=== PATIENT | male | born 1940 | race Caucasian/White ===

== ENCOUNTER → 2017-11-08 10:29 | Outpatient (CLI) | payer MEDICARE, SELFPAY ==
[2017-11-08 12:15] LABS: Anion Gap 6 (5-15); BUN 18 mg/dL (7-18); BUN/Creat Ratio 12.6 RATIO (10-20); Calcium,Total 9.4 mg/dL (8.5-10.1); Chloride 105 mmol/L (98-107); Creatinine, Serum 1.43 mg/dL (0.70-1.30); EST Glomerular Filtration Rate 51 mL/min (>60); Est Glom Filt Rate - Afr Amer 61 mL/min (>60); Glucose 112 mg/dL (74-106); Potassium 4.1 mmol/L (3.5-5.1); Sodium Level 140 mmol/L (136-145)
== END ==
PROVIDERS: Family Provider Family Medicine; PCP Family Medicine; Visit Provider Family Medicine
DX: R94.4 Abnormal results of kidney function studies (principal)
CPT/HCPCS: 36415; 80048

== ENCOUNTER → 2017-11-11 08:40 | Outpatient (CLI) | payer MEDICARE, SELFPAY ==
--- NOTE | 2017-11-11 08:45 | US_ITS ---
STUDY: RENAL ULTRASOUND - COMPLETE REASON FOR EXAM: Male, 77 years old. Decreased GFR. TECHNIQUE: Ultrasound evaluation of the kidneys was performed with real-time and static cardenas-scale imaging. COMPARISON: None. FINDINGS: RIGHT KIDNEY: Normal location of the right kidney, which is normal in size. The right kidney measures 9.1 cm x 3.9 cm x 5.0 cm. There is a normal cortex of the right kidney. The renal cortex measures 1.3 cm. There is no right renal mass or cyst. There is a 2 mm x 6 mm x 2 mm nonobstructive calculus in the lower pole. There is no right hydronephrosis. DISTAL RIGHT URETER: There is non-visualization of the distal right ureter. There is no demonstrated right ureterovesical junction calculus. There is a visualized right ureteral jet. LEFT KIDNEY: Normal location of the left kidney, which is normal in size. The left kidney measures 10.1 cm x 3.6 cm x 4.3 cm. There is a normal cortex of the left kidney. The renal cortex measures 1.3 cm. There is no left renal mass or cyst. There are no left renal calculi. There is no left hydronephrosis. DISTAL LEFT URETER: There is non-visualization of the distal left ureter. There is no demonstrated left ureterovesical junction calculus. There is no demonstrated left ureteral jet. BLADDER: The distended urinary bladder has a volume of 148 ml. There is a normal wall thickness of the distended urinary bladder. There is no demonstrated mass within the urinary bladder. There are no demonstrated bladder calculi. US/Kidney and Bladder IMPRESSION: Nonobstructive right intrarenal calculus. Electronically Signed: Neal River MD at 13:07 EST Tel [phone], Service support ,
--- NOTE | 2017-11-11 09:08 | RDU_ITS ---
Reason For Study: HYPERTENSION Right Renal Artery Left Renal Artery Right renal artery ostium Left renal artery ostium 151.0/31.9 111.0/21.9 RSV/EDV. PSV/EDV. Right renal artery proximal Left renal artery proximal PSV/EDV 112.0/33.7 PSV/EDV. 140.0/28.3 . Right renal artery mid 126.0/33.7 Left renal artery mid 134.0/27.4 PSV/EDV. PSV/EDV . Right renal artery distal Left renal artery distal 127.0/28.3 115.0/27.4 PSV/EDV. PSV/EDV. Right RAR 1.6. Left RAR 1.9. Right Renal Parenchyma Left Renal Parenchyma Upper Pole Medula 22.9/7.9 PSV/EDV. Left upper pole medulla 30.8/8.3 Right upper pole medulla EDR .34 . PSV/EDV . Right upper pole medulla R.I. .65 . Left upper pole medulla EDR .27 . Upper Asher Cortx 18.9/6.1 PSV/EDV. Left upper pole medulla R.I. .73 . Right upper pole cortex EDR .32 . UP Cortex 24.1/7.6 PSV/EDV. Right upper pole cortex R.I. .68 . Left upper pole cortex EDR .32 . Right lower Pole medulla 29.3/8.6 Left upper pole cortex R.I. .68 . PSV/EDV . Left lower Pole medulla 23.5/4.9 Right lower pole medulla EDR .29 . PSV/EDV . Right lower pole medulla R.I. .71 . Left lower pole medulla EDR .21 . Lower Pole Cortex 22.9/7.0 PSV/EDV. Left lower pole medulla R.I. .79 . Right lower pole cortex EDR .31 . Lower Pole Cortx 21.1/6.7 PSV/EDV. Right lower pole cortex R.I. .69 . Left lower pole cortex EDR .32 . Right Renal Hilar Left lower pole cortex R.I. .68 . Right Hilar avg 37.3/9.8 PSV/EDV. Left Renal Hilar Right hilar acceleration time 59 LT Hilar avg 42.8/8.3 PSV/EDV . m/sec. Left hilar acceleration time 59 Right Renal Dimensions m/sec. Right kidney size 9.0 cm . Left Renal Dimensions Right cortical dimension 1.4 cm . Left kidney size 9.5 cm . Left cortical dimension 1.5 cm . Aorta Proximal abdominal aorta 1.8 x 1.8 cm . Distal abdominal aorta 1.6 x 1.6 cm . Proximal abdominal aorta peak systolic velocity is 77.5 cm/sec . Distal abdominal aorta peak systolic velocity is 83.9 cm/sec . Interpretation Summary Dimensions of the intra-abdominal aorta appear normal, without evidence of aneurysmal dilatation. Renal artery velocities are bilaterally normal. Acceleration times are normal bilaterally. Renal- aortic ratios are also bilaterally normal. There is no evidence of hemodynamically significant renal artery stenosis on either side. Cortical dimensions are bilaterally normal. Kidneys appear normal in size bilaterally. Ordering Physician: Que Parr Referring Physician: Que Parr Performed By: Dania Dacosta RVT
== END ==
PROVIDERS: Family Provider Family Medicine; PCP Family Medicine; Visit Provider Family Medicine
DX: N20.0 Calculus of kidney (principal); I10 Essential (primary) hypertension; R94.4 Abnormal results of kidney function studies
CPT/HCPCS: 76770; 93975

== ENCOUNTER 2018-02-14 05:44 | Day surgery (SDC) | payer MEDICARE, SELFPAY ==
--- NOTE | 2018-02-14 | MASS_PTH ---
PATIENT: ОЛЕГ DRAKE LOC: [facility] [place][id number] AGE/SX: 78/M ROOM: RE02/14/[address]: Dr. Chicho Tamez MD : 1940 BED: DIS: 02/14/2018 SPEC #: [id number] RECD: 02/14/18 08:02 STATUS: DIANA DILLON #: [id number] DIONICIO: 02/14/18 00:[address]: Chicho Tamez DEPT: SURGICAL PATHOLOGY RECD BY: Rosemarie Norwood ENTERED: 02/14/18 08:58 SP TYPE: Mass OTHR DR: Dr. Que Parr MD Tissues: A - Supraglottic space B - Supraglottic space Procedures: Frozen Section (charge) Surgery Specimen Level IV Frozen (no charge) HEADER OPERATION: Hypopharyngoscopy and laryngoscopy with biopsy of epiglottic mass PRE-OP DIAGNOSIS: Epiglottic mass TISSUE SUBMITTED: A. Supraglottic mass for frozen, B. Supraglottic mass for permanent FROZEN SECTION DIAGNOSIS A. Supraglottic mass, biopsy: Squamous cell carcinoma in situ. No definite invasive carcinoma seen. SJ:addie 02/14/18 MICROSCOPIC DIAGNOSIS A. Supraglottic mass, biopsy: Squamous cell carcinoma in situ. No definite invasive carcinoma is noted. B. 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 See comment. KRUNAL:addie 02/15/18 COMMENT A & B. 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 B. Results from immunohistochemistry ([id number]) for surrogate HPV marker (p16) will be reported separately. MICROSCOPIC DESCRIPTION Slides are reviewed. GROSS DESCRIPTION A - Received fresh for frozen section diagnosis labeled with the patient's name is a specimen designated supraglottic mass. The specimen consists of two pieces of bell soft tissue measuring in aggregate 1 x 0.3 x 0.2 cm. The entire specimen is submitted for frozen section diagnosis in one cassette. B - Received in fixative is one container labeled with the patient's name and designated supraglottic mass for permanent. The specimen consists of multiple pieces of bell-pink soft tissue that in aggregate measure 2 x 1 x 0.3 cm. The entire specimen is submitted in one cassette. / SJ:addie 02/14/18 TC:0 CPT: 92756 x2, 35962
--- NOTE | 2018-02-14 | IMM_PTH ---
PATIENT: ОЛЕГ DRAKE LOC: [facility] [place][id number] AGE/SX: 78/M ROOM: RE02/14/[address]: Dr. Chicho Tamez MD : 1940 BED: DIS: 02/14/2018 SPEC #: [id number] RECD: 02/15/18 12:32 STATUS: DIANA REBob #: [id number] DIONICIO: 02/14/18 00:[address]: Chicho Tamez DEPT: IMMUNOHISTOCHEMISTRY RECD BY: Rosemarie Norwood ENTERED: 02/15/18 12:37 SP TYPE: IMMUNO OTHR DR: Dr. Que Parr MD Tissues: B - Glottis, NOS Procedures: p16 (initial) PHYSICIAN & INSTITUTION [place] [address] SPECIMEN INFORMATION: Tissue Source: B ? Supraglottic mass Clinical Info: Epiglottic mass Specimen Number: [id number] CPT code: 90548 METHODOLOGY: Deparaffinized sections of prefer/formalin-fixed tissue or PAP/DQ stained slides are incubated with monoclonal/polyclonal antibodies/oligonucleotide probes. Localization is made via biotin free immunoperoxidase method. Appropriate controls are performed and reacted as expected. Results on target cell population are indicated in the following table: RESULTS: ANTIBODY / CLONE RESULT Block B P16 (E6H4) Positive, block staining These tests were developed and their performance characteristics determined by [facility]. They may not have been cleared or approved by the U.S. Food and Drug Administration. The FDA has determined that such clearance or approval is not necessary. INTERPRETATION: B. 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 SJ:addie 02/15/18
--- NOTE | 2018-02-14 05:51 | EKG12_ITS ---
Test Reason : PRE-OP Blood Pressure : / mmHG Vent. Rate : 055 BPM Atrial Rate : 055 BPM P-R Int : 194 ms QRS Dur : 074 ms QT Int : 440 ms P-R-T Axes : 037 010 034 degrees QTc Int : 420 ms Sinus bradycardia Otherwise normal ECG When compared with ECG of 02-APR-2006 18:03, Nonspecific T wave abnormality no longer evident in Anterior leads Confirmed by PHUC COREY, CAITLYN ([id number]), restaurant expeditor NAN MONET ([id number]) on 02/17/2018 3:00:56 PM Referred By: Chicho Tamez Confirmed By:CAITLYN FRIEND MD
[2018-02-14 06:09] VITALS: BP 126/63; PULSE 58; RESP 16; TEMP 36.7; O2SAT 97; BMI 27.6
[2018-02-14 06:23] LABS: Hematocrit 43.1 % (40-54); Mean Corp Hgb Conc 32.5 g/gl (32-36); Mean Corpuscular Hgb 29.7 pg (27.0-32.0); Mean Corpuscular Volume 91.3 fL (80-94); Mean Platelet Vol. 8.6 fl (6.2-12.0); Platelet Count 245 K/mm3 (150-450); RBC Distribution Width CV 13.4 % (11.6-14.6); RBC Distribution Width SD 44.3 fl (35.1-43.9); Red Blood Count 4.72 M/mm3 (4.6-6.2); White Blood Count 9.4 K/mm3 (4.4-11.0)
[2018-02-14 06:24] LABS: Scan Indicated on CBC? Y/N NO
[2018-02-14 06:38] LABS: Anion Gap 8 (5-15); BUN 16 mg/dL (7-18); BUN/Creat Ratio 11.6 RATIO (10-20); Calcium,Total 9.3 mg/dL (8.5-10.1); Chloride 104 mmol/L (98-107); Creatinine, Serum 1.38 mg/dL (0.70-1.30); EST Glomerular Filtration Rate 53 mL/min (>60); Est Glom Filt Rate - Afr Amer 64 mL/min (>60); Estimated Creatinine Clearance 44.08 ml/min; Glucose 115 mg/dL (74-106); Potassium 4.5 mmol/L (3.5-5.1); Sodium Level 139 mmol/L (136-145)
--- NOTE | 2018-02-14 08:27 | PCM.OP.BLANK ---
Operative Report Operative report Procedure microlaryngoscopy and biopsy of tumor mass in the supraglottic area and vallecula Preoperative diagnosis squamous cell carcinoma Postoperative diagnosis same Anaesthesia endotracheal general Procedure the patient was placed supine on the operating room table and after satisfactory endotracheal general anesthesia been obtained sterile drapes were applied and the patient draped in the usual sterile manner. A Dedo anterior commissure laryngoscope was introduced into the oral cavity. The epiglottis was identified. The preepiglottic space and vallecula appeared to be occupied by a large friable bloody tumor mass. The area epiglottic folds appear to be normal and the false cords and true cords were noted to be normal. Both piriform sinuses appear to be clean. Mutuel Cashier biopsies were obtained from different sites on the tumor mass. Bleeding was controlled by packing the mass with cottonoids soaked in topical epinephrine. After hemostasis had been obtained the hypopharynx was suctioned the patient extubated and returned to the recovery room in satisfactory condition. Chicho Tamez MD
[2018-02-14 08:40] VITALS: BP 109/53; BP 126/63; PULSE 59; RESP 16; TEMP 36.1; O2SAT 92
[2018-02-14 08:45] VITALS: BP 126/63; BP 94/83; PULSE 61; RESP 16; O2SAT 94
[2018-02-14 09:00] VITALS: BP 113/71; BP 126/63; PULSE 56; RESP 16; TEMP 36.4; O2SAT 92
[2018-02-14 09:29] VITALS: BP 126/63
== END 2018-02-14 09:44 | disposition home or self-care (01) ==
LOC: SDC 05:45 → AC 05:46
PROVIDERS: Family Provider Family Medicine; PCP Family Medicine; Visit Provider Otolaryngology Otolaryngology/Facial Plastic Surgery
PROC: 0CJS8ZZ Inspection of Larynx, Via Natural or Artificial Opening Endoscopic (ICD-10-PCS; CPT 31575; principal; 2018-02-14 07:15)
DX: D02.0 Carcinoma in situ of larynx (principal); I10 Essential (primary) hypertension; Z85.46 Personal history of malignant neoplasm of prostate; Z87.891 Personal history of nicotine dependence; Z79.899 Other long term (current) drug therapy
CPT/HCPCS: 00320; 31576; 36415; 80048; 85027; 88305; 88331; 88342; 93005; J7120; J2405

== ENCOUNTER → 2018-02-28 15:16 | Outpatient (CLI) | payer MEDICARE, SELFPAY ==
[2018-02-23 10:36] VITALS: BMI 27.5
--- NOTE | 2018-02-28 15:20 | CT_ITS ---
STUDY: CT SOFT TISSUE NECK WITH CONTRAST REASON FOR EXAM: Male, 78 years old. Malignant neoplasm. RADIATION DOSAGE (If Supplied By Facility): CTDIvol = ( 19.65 ) mGy, DLP = ( 598.63 ) mGycm TECHNIQUE: The patient was scanned in a multi-detector CT scanner. High resolution transaxial imaging was performed following intravenous administration of 75 ml of Isovue 370 contrast material. Sagittal and coronal images were reconstructed. Individualized dose optimization techniques were used for this CT. COMPARISON: None. FINDINGS: Thoracic body wall soft tissues: No acute process. Upper thoracic osseous structures: No acute process. Upper lungs: Hyperlucency consistent with underlying COPD/emphysema. No acute pulmonary process. Superior mediastinum: No mass or lymphadenopathy. Supraclavicular soft tissues: Normal thyroid. A few shotty supraclavicular lymph nodes are present, none pathologically enlarged. Cervical soft tissues: Normal submandibular glands. A few shotty lymph nodes are present in the cervical chains bilaterally, not pathologically enlarged. No mass or lymphadenopathy. Pharyngeal: Normal nasopharynx and oropharynx. Entering the hypopharynx and laryngeal region, there is irregular abnormal thickening at the deep base of the tongue, extending into the vallecula and involving the epiglottis, dominant toward the right side, and consistent with a neoplastic process. This spans transversely up to 3.5 cm long the base of the tongue within the vallecula. On the right process measures up to 2.3 cm anterior-posterior, 2.8 cm craniocaudal, and 1.8 cm transverse. On the left 1.8 cm anterior-posterior, 0.7 cm transverse, and 1.7 cm craniocaudal. Inferiorly, at the level of the true and false cords, no neoplastic process. There is no apparent invasion of the immediately adjacent parapharyngeal fat planes or retropharyngeal space. Vasculature: Minimal carotid atherosclerosis without stenosis, slightly greater on the left. Normal bilateral vertebral arteries left dominant. CT/Soft Tissue Neck WITH Contrast IMPRESSION: 1. 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 2. No lymphadenopathy. Electronically Signed: Azeem Hennessy, at 9:08 EDT Tel , Service support ,
== END ==
PROVIDERS: Family Provider Family Medicine; PCP Family Medicine; Visit Provider Student in an Organized Health Care Education/Training Program
DX: C76.0 Malignant neoplasm of head, face and neck (principal)
CPT/HCPCS: 70491; Q9967

== ENCOUNTER → 2018-03-13 07:18 | Outpatient (CLI) | payer MEDICARE, SELFPAY ==
[2018-02-23 10:36] VITALS: BMI 27.5
--- NOTE | 2018-03-13 07:18 | DT_ITS ---
This patient was seen during an EMR downtime March 06, 2018 - March 13, 2018. This patient may have a combination of paper and electronic documentation or all paper documentation. All documentation is viewable within the e-chart portion of [employer] for each patient visit.
--- NOTE | 2018-03-13 12:00 | PET_ITS ---
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 COMPARISON EXAMINATION: CT of the neck report dated 02/28/18. INDEX LESION SIZE SUV INTERPRETATION Pharyngeal mucosal space-hypopharynx 39.1 mm x 30.2 mm (frame 270) 14.1 Fulfills quantitative criteria for viable neoplasm First lumbar vertebra 3.5 May be further investigated with magnetic resonance imaging TECHNIQUE: Following the intravenous administration of 12.63 mCi of F-18 deoxyglucose via the right antecubital fossa, multiplanar image acquisitions of the neck, chest, abdomen and pelvis to level of mid thigh, obtained at one hour post radiopharmaceutical administration contemporaneously interpreted with the current CT of the neck, chest, abdomen and pelvis to level of mid thigh, dated 03/13/[address] of the neck report dated 02/28/18 reveal: SERUM GLUCOSE LEVEL: 112 mg/dl. HEIGHT: 69 inches. WEIGHT: 185 lbs. FINDINGS: 1. Increased glucose metabolism is identified in the posterior aspect of the oropharynx, pharyngeal mucosal space extending caudal to the hypopharynx to include the distribution of the vallecula and epiglottis. The calculated maximum standard uptake value is 14.1. The maximal axial diameter of the metabolic, morphologic abnormality on review of CT of the neck dated 03/13/18 is 39.1 mm (transverse) x 30.2 mm (AP). 2. Focal increased glucose concentration is demonstrated in the region of the first lumbar vertebra contiguous to the vertebral body, anterior element generating a calculated maximum standard uptake value of 3.5. 3. Normal physiologic distribution of the radiopharmaceutical is apparent in the hepatic (3.4) and splenic parenchyma, both renal units, bladder and visualized intestinal tract. There is symmetric and preserved glucose metabolism noted in the visualized portion of the frontal, occipital, temporal and parietal lobes of the cerebral cortex, as well as cerebral hemispheres and basal ganglia. Diffuse intestinal tract activity is noted throughout all four quadrants of the abdominal-pelvic retroperitoneum, mesentery consistent with normal physiologic distribution of the radiopharmaceutical. Prominent glucose metabolism is defined in the descending thoracic, as well as abdominal aorta. Pertinent CT findings are as follows. CHEST: Emphysematous change is noted in the bilateral lung zones. Prominent bulla formation is defined in the right-left lower lung chapa. Nodular densities demonstrated in the right-left lower lobes demonstrate no evidence of quantitatively significant increased glucose metabolism. Prominent calcified pleural plaque formation is noted in the bilateral hemithorax without evidence of quantitatively significant increased glucose metabolism. Atherosclerotic calcification is defined in the thoracic aorta without evidence of dilatation, aneurysm formation. Coronary arterial calcification is observed. Bilateral subcentimeter axillary and scattered mediastinal soft tissue densities are ametabolic. ABDOMEN AND PELVIS: Atherosclerotic calcification is defined in the abdominal aorta without evidence of dilatation, aneurysm formation. Abdominal-pelvic arterial calcification is observed. Colonic diverticulosis is defined. Right-left inguinal soft tissue densities are non-glucose avid. Calcification is demonstrated in the right kidney. SKELETAL: Degenerative changes defined in the cervical, thoracic and lumbar spine demonstrate no evidence for glucose hypermetabolism. PET/PET/CT Tumor Base -Thigh Init IMPRESSION: 1. ABNORMAL EXAMINATION INDICATIVE OF MALIGNANT VIABLE NEOPLASM. 2. Increased glucose concentration visualized in the pharyngeal mucosal space extending caudal to the hypopharynx fulfills quantitative criteria for viable neoplasm. 3. Enhanced glucose concentration observed in the first lumbar vertebra may be further investigated with magnetic resonance imaging in the setting of known head and neck malignancy. 4. Prominent glucose concentration observed in the descending thoracic, as well as abdominal aorta is commensurate with activated leukocytes associated with atherosclerotic plaque formation. (Michael et al, Clinical Nuclear Medicine 29:93, 2004). Electronic Signature Azeem Sultana D.O. Electronically Signed: Azeem Sultana DO at 22:33 EDT Tel , Service support ,
== END ==
PROVIDERS: Family Provider Family Medicine; PCP Family Medicine; Visit Provider Student in an Organized Health Care Education/Training Program
DX: C10.0 Malignant neoplasm of vallecula (principal)
CPT/HCPCS: 78815; A9552; A4216

== ENCOUNTER → 2018-03-18 07:27 | Outpatient (CLI) | payer MEDICARE, SELFPAY ==
[2018-02-23 10:36] VITALS: BMI 27.5
[2018-03-16 10:37] VITALS: BMI 27.5
--- NOTE | 2018-03-18 07:30 | MRI_ITS ---
STUDY: MRI LUMBAR SPINE WITH AND WITHOUT CONTRAST REASON FOR EXAM: Male, 78 years old. Back pain TECHNIQUE: Standardized fat and water weighted pulse sequences were obtained in the sagittal and axial planes. 9ml ml of Gadavist contrast material was administered for the contrast portion of the examination. COMPARISON: None FINDINGS: There is normal alignment and curvature of the lumbosacral spine with no acute fractures and no abnormal marrow infiltrative processes. Almost all the disc spaces are narrowed with marginal osteophytes from their respective vertebral body endplates. The conus medullaris terminates at T12-L1. T12-L1: Normal endplates. Normal disc height, hydration and morphology. Normal bilateral facet joints. Normal central canal and bilateral lateral recesses. Normal bilateral intervertebral neural foramina. L1-2: Disc space narrowing with spurs from the vertebral body endplates but no focal disc protrusion or extrusion. The facet joints are normal. L2-3: Disc space narrowing with spurs from the vertebral body endplates. No focal disc protrusion or extrusion. The facet joints are normal. Mild hypertrophy of the left ligamentum flavum. L3-4: Disc space narrowing with spurs from the vertebral body endplates. No focal disc protrusion or extrusion. Degenerative changes of the facet joints with hypertrophy of the left ligamentum flavum. L4-5: Disc space narrowing with spurs from the vertebral body endplates. Degenerative changes of the facet joints. Severe central canal stenosis and narrowing of the intervertebral foramina bilaterally. L5-S1: Disc space narrowing with spurs from the vertebral body endplates. No focal disc protrusion or extrusion. Mild degenerative changes of the facet joints Normal visualized sacral ala. Aorta and visualized portions of the kidneys are normal MRI/Spine Lumbar W/WO Contrast IMPRESSION: Multilevel intervertebral osteochondrosis. No focal disc protrusion or extrusion. Central canal stenosis at L4-5. Multilevel facet arthrosis Electronically Signed: Freedom Lerma, at 8:01 EDT Tel , Service support ,
== END ==
PROVIDERS: Family Provider Family Medicine; PCP Family Medicine; Visit Provider Student in an Organized Health Care Education/Training Program
DX: C76.0 Malignant neoplasm of head, face and neck (principal); M42.1 Adult osteochondrosis of spine; M48.061 Spinal stenosis, lumbar region without neurogenic claudication; M47.896 Other spondylosis, lumbar region
CPT/HCPCS: 72158; A9585

== ENCOUNTER → 2018-03-20 12:28 | Outpatient (CLI) | payer MEDICARE, SELFPAY ==
[2018-02-23 10:36] VITALS: BMI 27.5
[2018-03-16 10:37] VITALS: BMI 27.5
--- NOTE | 2018-03-20 13:00 | SP.MBSS_ITS ---
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 Houston Esparza D.O. 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 Patient reporting consistent globus sensation, prior mild odynophagia (reports no recent occurrences), persistent loss in appetite resulting in 10-15lbs weight loss over the last 3-6 months (currently maintaining), persistent muffled horse vocal quality. Patient denies dysgeusia / ageusia, numbness / weakness, taste change, xerostomia, sialorrhea, or otalgia. Patient able to ambulate without difficulty (no cane / walker), independent for all activities of daily living, though reports he is no longer very active. Patient and Patients both report occasional coughing / throat clearing with liquids and solids. Patient and Patients report percutaneous endoscopic gastrostomy (PEG) tube placement scheduled for 03/21/2018; further chemoradiation scheduled to initiate on 03/22/2018 (per report, 4 rounds of chemotherapy, 5 weeks of radiation 5 days per week; 35 total sessions). ADDITIONAL OBJECTIVE ASSESSMENT RESULTS: 03/01/2018 CT / soft tissue neck with contrast revealed malignancy at the base of the tongue extending into the valleculae and involving the epiglottis, dominant toward the right side. 10/24/2017 CT chest with contrast performed due to hemoptysis; showed evidence for emphysematous changes and scarring predominantly in the lower lobes, right pleural calcifications which could be due to previous empyema, no evidence of adenopathy, pleural effusions, or pulmonary masses. 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 02/20/2018: Patient was seen in the ENT office to discuss pathology and was found to be healing well, he was referred to radiation oncology. MEDICAL HISTORY: Malignant neoplasm of the head / face / neck, skin cancer, prostate cancer / malignancy undetectable PSA per patient status post prostatectomy, prior left knee surgery due to meniscus tear, hiatal hernia status post surgical repair, hypertension, gout STUDY FINDINGS: Patient participated in a Modified Barium Swallow (MBS) study on 03/06/2018. Dr. River was the radiologist present for this evaluation. This study was recorded in the lateral view and images were sent to PACs for storage. The following consistencies were presented to this patient for analysis of oropharyngeal swallow function: thin liquids, pudding, and a regular textured, Jenni Doone cookie. Results of the MBS are as follows: PENETRATION / ASPIRATION SCALE (FINK): 1 = does not enter airway 2 = enters airway/above vocal folds/ejected 3 = enters airway/above vocal folds/not ejected 4 = enters airway/contacts vocal folds/ejected 5 = enters airway/contacts vocal folds/not ejected 6 = enters airway/below vocal folds/ejected 7 = enters airway/below vocal folds/not ejected despite effort 8 = enters airway/below vocal folds/no effort PENETRATION / ASPIRATION SCALE (SCORE): Thin liquid - 5 mL tsp.: 1 Thin liquids via cup (single sip): 3 Thin liquids via cup (single sip): 5 Thin liquids via cup (single sip): 3 Thin liquids via straw (single sip): 3 Thin liquids via straw (sequential swallows): 5 Thin liquids via cup (chin tuck): 1 Thin liquids via cup (chin tuck): 2 Thin liquids via cup (chin tuck): 2 [place] thickened liquids via cup (single sip): 2 [place] thickened liquids via cup (single sip): 2 Pudding via spoon: 1 Regular textured cookie: 1 Thin liquids via cup (chin tuck): 2 [place] thickened liquids via cup (chin tuck): 1 [place] thickened liquids via cup (chin tuck): 1 IMPRESSION: DIAGNOSIS: mild to moderate oropharyngeal dysphagia (R13.12) ORAL PHASE CHARACTERIZED BY: LABIAL SEAL: no labial escape TONGUE CONTROL DURING BOLUS MANIPULATION: posterior escape of greater than half of bolus BOLUS PREPARATION / MASTICATION: slow prolonged chewing/mashing with complete recollection BOLUS TRANSPORT / LINGUAL MOTION: brisk tongue motion ORAL RESIDUE: trace residue lining oral structures PHARYNGEAL PHASE CHARACTERIZED BY: INITIATION OF PHARYNGEAL SWALLOW: bolus head in pyriforms at first hyoid excursion SOFT PALATE ELEVATION: no bolus between soft palate and pharyngeal wall LARYNGEAL ELEVATION: minimal superior movement of thyroid cartilage/minimal approximation of arytenoids cartilage to epiglottic petiole ANTERIOR HYOID EXCURSION: partial anterior movement EPIGLOTTIC MOVEMENT: partial epiglottic inversion LARYNGEAL VESTIBULE CLOSURE AT HEIGHT OF SWALLOW: incomplete laryngeal vestibule closure with narrow column of air/contrast in laryngeal vestibule PHARYNGEAL STRIPPING WAVE: pharyngeal stripping wave present / complete PHARYNGOESOPHAGEAL SEGMENT OPENING: complete distension and complete duration with no obstruction of flow TONGUE BASE RETRACTION: trace column of contrast between tongue base and posterior pharyngeal wall PHARYNGEAL RESIDUE: trace residue within or on pharyngeal structures with scattered mild collections of barium within / around the pharyngeal mass. ESOPHAGEAL PHASE CHARACTERIZED BY: ESOPHAGEAL BOLUS CLEARANCE IN THE UPRIGHT POSITION: could not view EFFECTS OF TREATMENT STRATEGIES ATTEMPTED: Chin tuck posture = moderately effective Cough and reswallow = moderately effective Effort swallow = moderately effective DIET TEXTURE RECOMMENDATIONS: Will recommend a regular-soft textured, nectar thickened liquid diet. COMPENSATORY STRATEGIES RECOMMENDED: Chin tuck with effortful swallow, reduce bolus volume, seated upright at 90 degrees during PO intake, remain upright for 30-60 minutes post meal (GERD precaution), medications with applesauce. 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 Oral phase primarily marked by suboptimal lingual / bolus control resulting in premature posterior bolus loss and pre-prandial penetration. Pharyngeal phase marked by impaired pharyngeal swallow onset timing resulting in suboptimal bolus location upon swallow onset contributing to prandial penetration; reduced closure of the airway during deglutition attributed to significantly impaired laryngeal elevation and anterior hyoid excursion resulting in insufficient epiglottic inversion and poor laryngeal vestibule closure / pressure contributing to prandial penetration with insufficient / inconsistent laryngeal vestibule pressure generated to expel penetrated material; adequate pharyngeal motility with mild retention on / around the location of the pharyngeal mass. All deficits improved with execution of the chin tuck position and effortful swallow maneuver in combination with diet texture and bolus volume adjustments. Prominent shading both above and below the epiglottis and within the valleculae at the location of the known pharyngeal mass. Mild bony projections / osteophytes protruding from the anterior spine, little to no impact on swallow function. No aspiration appreciated throughout trials, unable to definitively rule out silent aspiration. RECOMMENDATIONS: Patient currently at higher risk for intermittent aspiration during intake of baseline diet textures (thin liquids) due to persistent penetration without complete ejection. Patient further at higher anticipated risk of dysphagia / exacerbation of current dysphagia following anticipated radiation intervention, with higher likelihood for suboptimal laryngeal vestibule closure, larger quantities and frequencies of laryngeal penetration, and higher likelihood for silent aspiration. Recommend a repeat modified barium swallow study if silent aspiration / persistent aspiration is suspected. Would consider implementation of the Blank Free Water Protocol (FFWP) following Patient and family education / training if medically appropriate. Patient unlikely to consume appropriate amounts of intake during chemoradiation intervention, with planned supplementation via PEG. Both the Patient and Patients expressing multiple questions in regards to PEG placement, encouraged both to discuss with the Patients physician; may benefit from dietary consultation. Discussed the following at length: current structural alterations and impact on physiology of deglutition; current aspiration risk in addition to projected (high) aspiration risk with radiation intervention. Discussed overt signs and symptoms of aspiration, encouraged to contact any of the Patients care team if changes in deglutition occur. Encouraged the Patient and Patients to monitor temperature spikes, lethargy post meal in particular if overt signs and symptoms of aspiration are identified. Patient requires intensive skilled speech -language intervention targeting continued diet texture management; training and implementation of recommended compensatory strategies; training and implementation of recommended oropharyngeal strengthening exercises to facilitate maintained range of motion, timing / coordination, and reduce risk of oropharyngeal and pharyngoesophageal structuring post radiation intervention ; Patient and caregiver training targeting dysphagia secondary to pharyngeal cancer status post chemoradiation intervention, aspiration risk and medical complications associated with aspiration and post chemoradiation intervention; training, implementation, and Patient education regarding implementation of the FFWP if placement is medically appropriate; and Patient / caregiver training targeting meal preparation / thickened liquid preparation. ADDITIONAL COMMENTS/RECOMMENDATIONS: Results and recommendations were discussed with the Patient immediately following MBS completion, with the Patient verbalizing understanding and agreement with all recommendations and education provided. IMAGE COUNT: [id number] G-CODES: SWALLOWING [id number] Current Status: CJ SWALLOWING G8997 Goal Status: CI SWALLOWING G8998 Discharge Status: CJ
--- NOTE | 2018-03-20 13:00 | RAD_ITS ---
STUDY: SWALLOWING STUDY REASON FOR EXAM: Male, 78 years old. Malignant neoplasm of the larynx. TECHNIQUE: The examination was performed with Speech Pathology in attendance. Under fluoroscopic observation, the patient ingested thin barium, thick barium, barium pudding, and barium coated cracker. FLUOROSCOPY TIME: 2:42 minutes/seconds. 2520 spot images were made. RADIOLOGIST INVOLVEMENT: Radiologist was present and providing direct supervision. COMPARISON: None. FINDINGS: The following was observed during swallowing of the various mixtures of barium: Thin Barium: Penetration with ingestion of thin liquids. Thick Barium: Penetration with ingestion of the nectar thickened liquids. This improves with the chin tuck maneuver. Barium Pudding: There was no evidence of aspiration or laryngeal penetration. Barium Coated Cracker: There was no evidence of aspiration or laryngeal penetration. RAD/Swallowing Function w/Video IMPRESSION: Penetration with ingestion of thin liquids. Penetration with ingestion of nectar thickened liquids which improves with the chin tuck maneuver. The swallow study findings were discussed with the patient by the speech pathologist at the conclusion of the examination. Please see speech pathology report for more information and recommendations. Electronically Signed: Neal River MD at 13:59 EDT Tel [phone], Service support ,
== END ==
PROVIDERS: Family Provider Family Medicine; PCP Family Medicine; Visit Provider Student in an Organized Health Care Education/Training Program
DX: C76.0 Malignant neoplasm of head, face and neck (principal)
CPT/HCPCS: 74230; 92611; G8996; G8997; G8998

== ENCOUNTER 2018-03-21 10:43 | Day surgery (SDC) | payer MEDICARE, SELFPAY ==
[2018-02-23 10:36] VITALS: BMI 27.5
[2018-03-16 10:37] VITALS: BMI 27.5
[2018-03-21] VITALS (8 sets, daily range): BP systolic 110–153; BP diastolic 60–100; PULSE 58–68; RESP 16–18; TEMP 36.3–37.2; O2SAT 92–97; BMI 28.0
--- NOTE | 2018-03-21 16:34 | PCM.OPRPT ---
Report of Operation Date of Procedure: 03/21/18 Pre-Operative Diagnosis: Throat cancer, dysphasia Post-Operative Diagnosis: Same, GERD questionable Edwards's Surgery/Procedure Performed:: EGD with PEG placement Type of Anesthesia:: MAC Anesthesiologist: Nolan Mccord Special Medications: Ancef 2 g IV ?1 Specimen's removed: None Estimated Blood Loss (mL): Minimal Description of Procedure: The patient was taken to the operating room. MAC anesthesia was induced. Timeout was completed verifying correct patient, procedure, site, positioning on special from prior to beginning procedure. After adequate sedation, mouthpiece was placed in the patient's mouth and endoscope was passed down into the stomach. There was noted to be some change at the GE junction along with a small hiatal hernia and one column of possible Edwards's. The stomach was insufflated with air and scope position the midportion and directed towards the anterior abdominal wall. With the room darkened and intensity turned up on the endoscope, a good light reflex noted on the skin of the abdomen wall in the left upper quadrant. Finger pressure was applied at the light reflection with adequate indentation on the stomach wall on endoscopy. A polypectomy snare was passed into the stomach, fully opened, and positioned so that the loop encircled the point of demonstrated finger indentation. The overlying skin was anesthetized with lidocaine and a 1 cm incision was made at the chosen site. The introducer needle with overlying catheter was passed through this incision into the stomach under visualization with the gastroscope. The needle and catheter gently grasped by the endoscopic snare. The guidewire was passed and snared. The endoscope, snare and guidewire were then withdrawn and pulled back out of the mouth. The gastrotomy tube was attached to the loop the guidewire and the whole thing pulled back the stomach to the 2.5 cm keanu of the gastrotomy tube was noted at skin level. The gastroscope was reintroduced and adequate placement of the gastrotomy tube was identified and picture was taken. The gastrotomy tube in was cut to length and the cramping appendage was placed. The patient tolerated procedure well and was taken back to the PACU in good condition. Will start patient on omeprazole for the GERD and will plan for an EGD in the future for surveillance of possible Edwards's once his chemo and radiation is complete. - Complications None
== END 2018-03-21 17:45 | disposition home or self-care (01) ==
LOC: EN 10:44 → AC 10:46
PROVIDERS: Family Provider Family Medicine; PCP Family Medicine; Visit Provider Surgery
PROC: 0DJ08ZZ Inspection of Upper Intestinal Tract, Via Natural or Artificial Opening Endoscopic (ICD-10-PCS; CPT 43235; principal; 2018-03-21 11:55)
DX: C10.0 Malignant neoplasm of vallecula (principal); K21.9 Gastro-esophageal reflux disease without esophagitis; K44.9 Diaphragmatic hernia without obstruction or gangrene; R13.12 Dysphagia, oropharyngeal phase; I10 Essential (primary) hypertension; Z85.46 Personal history of malignant neoplasm of prostate; Z90.79 Acquired absence of other genital organ(s); Z85.828 Personal history of other malignant neoplasm of skin; Z87.891 Personal history of nicotine dependence; Z79.82 Long term (current) use of aspirin; Z79.899 Other long term (current) drug therapy
CPT/HCPCS: 43246; J7120

== ENCOUNTER 2018-03-24 06:36 | Day surgery (SDC) | payer MEDICARE, SELFPAY ==
[2018-03-16 10:37] VITALS: BMI 27.5
[2018-03-24 07:27] VITALS: BP 129/79; PULSE 61; RESP 16; TEMP 37.2; O2SAT 98; BMI 28.2
[2018-03-24] MEDS: Cefazolin 2 GM in 0.9% Normal Saline 100 ML IV (08:22)
[2018-03-24] MEDS: Bupivacaine Mpf 0.5% 30 ML VIAL (08:50)
--- NOTE | 2018-03-24 09:29 | RAD_ITS ---
STUDY: X-RAY CHEST REASON FOR EXAM: Male, 78 years old. Port placement. TECHNIQUE: Single AP portable view of the chest. COMPARISON: None. FINDINGS: A right-sided portacatheter as been placed. The tip is in the midportion of the superior vena cava. There is no evidence of pneumothorax. Hyperinflation. Decreased bronchovascular markings in the upper lobes suggestive of emphysematous changes. Calcified pleural plaques in the lateral aspect of the right upper lobe. There is an 8.7 cm x 6.9 cm bulla in the left lower lobe. Blunting of the left costo phrenic angle with left basilar scarring or infiltration. Normal size heart. Normal mediastinum and stefani. Normal visualized pulmonary arteries. There is atherosclerotic calcification of the aortic arch with tortuosity. There are diffuse degenerative changes of the visualized thoracic spine. Normal visualized ribs, clavicles, and shoulders. There is no demonstrated abnormality of the visualized soft tissue structures of the upper abdomen. RAD/CXR for Line Placement IMPRESSION: Hyperinflation and emphysematous changes. The tip of the right portacatheter is in the midportion of the superior vena cava. Pleural parenchymal changes at the left lung base. Pleural plaque calcification in the lateral aspect of the right upper lobe. Electronically Signed: Neal River MD at 10:27 EDT Tel [phone], Service support ,
[2018-03-24 09:31] VITALS: BP 118/85; BP 129/79; PULSE 65; RESP 16; TEMP 36.2; O2SAT 95
--- NOTE | 2018-03-24 09:33 | OP.PCM_ITS ---
Report of Operation Date of Procedure: 03/24/18 Pre-Operative Diagnosis: Z 45.2, throat cancer Post-Operative Diagnosis: Same Surgery/Procedure Performed:: 1. Insertion of right IJ Port-A-Cath. 2. Use ultrasound. 3. Use of fluoroscopy Type of Anesthesia:: MAC Anesthesiologist: Carrie Sterling Special Medications: Ancef 2 g IV ?1 Specimen's removed: None Estimated Blood Loss (mL): <5 cc Fluids Replaced: See anesthesia's record Description of Procedure: After informed consent was given, the patient was brought to the operating room and placed in the supine position. Appropriate time out protocol was followed. He was then given IV conscious sedation for anesthesia. The patient 's right upper chest and neck were then prepped with a surgical skin preparation and sterile surgical drapes were placed. After proper landmarks were ascertained, the skin at the upper right chest area was then infiltrated with 1:1 mixture of 1% lidocaine with epinephrine and 0.5% maricaine total of 10 cc. A needle trocar was then inserted into the right internal jugular vein with ultrasound guidance-multiple vessels were viewed with u/s and the right IJ was chosen-- and there was good aspiration of venous blood. A wire was then threaded into the needle trocar and this was visualized under fluoroscopy to ensure that the wire was in the superior vena cava. Once this was done, then the needle trocar was removed. A small skin yaneth was made with an 11 blade knife at the wire entrance site. The dilator with the introducer sheath attached was then placed over the wire into the right internal jugular vein via the Seldinger technique and this was visualized under fluoroscopy. The dilator and sheath were in proper position as visualized by fluoroscopy. A subcutaneous pocket was then created caudad to the catheter insertion site. A transverse skin incision was made after the skin and subcutaneous tissues were infiltrated with local anesthetic. Blunt dissection was then used to create a space large enough for placement of the subcutaneous port. The catheter was then tunneled into the subcutaneous pocket. The wire and dilator were then removed. The catheter was then threaded into the introducer sheath and was positioned with its tip at the junction of the superior vena cava and the right atrium as visualized under fluoroscopy. The excess catheter was transected. The catheter was then attached to the subcutaneous port using manufacturers guidelines. The catheter was flushed with a heparin saline mixture prior to placement. Hemostasis was carefully controlled with electrocautery. The port was sutured to the subcutaneous fascia using 3-0 PDS suture at two sites. The port was then placed in the subcutaneous pocket and the sutures were ligated. The incision were reapproximated with interrupted subdermal 3-0 vicryl sutures. The skin was reapproximated with 3-0 nylon suture in a interrupted fashion. Steristrips were used for reinforcement of the skin closure at IJ insertion site and a sterile opsite dressings were applied. The patient tolerated the procedure well. Implants Used: [employer] PowerPort isp M.R.I. 6Fr Lot [id number] Grafts/Implants Used: [employer] PowerPort isp M.R.I. 6Fr Lot [id number] - Complications none
[2018-03-24 09:35] VITALS: BP 129/79; BP 132/75; PULSE 65; RESP 16; O2SAT 93
--- NOTE | 2018-03-24 09:37 | PCM.DC.POR ---
Discharge Diet: No Restrictions Discharge Activity: May not drive while taking narcotic pain medications., - - no lifting >15 lb w right arm x 1 week May shower in (days): 5 - Keep port site clean and dry x 5 days then ok to shower Lifting Restrictions: no lifting >15 lbs w right arm Call your doctor if your incision/area has: Continuous Slow Oozing, Sudden Increased Bleeding, Increased Pain/ Swelling, Increased Redness, Foul Smelling Discharge, Swelling at the incision site Call your doctor if you observe: Fever of 101 or Higher Remove Dressing in (days):: 5 - ok to remove for chemo but recover Cleanse incision/area with: Keep Dressing Clean & Dry - for 5 days Allergies/Adverse Reactions: Allergies No Known Allergies Allergy (Verified 03/24/18 07:26) Medications to take at Discharge Allopurinol 100 mg PO QODAY 02/08/18 Aspirin E.C. [Ecotrin] 81 mg PO DAILY@0800 02/08/18 Calcium Carbonate [Calcium] 600 mg PO DAILY 02/08/18 Garlic 500 mg PO DAILY 02/08/18 Lisinopril [Zestril] 5 mg PO DAILY 02/08/18 Methylcellulose [Fiber Therapy] 625 mg PO DAILY 02/08/18 Multivitamin [Multiple Vitamins] 1 each PO DAILY 02/08/18 [place]-3/Dha/Epa/Fish Oil [[place] 3 500 Softgel] 1 each PO DAILY 02/08/18 Lidocaine/Prilocaine [Lidocaine-Prilocaine Cream] 30 gm TP DAILY PRN PRN #1 cream..g. 03/16/18 Ondansetron HCl [Zofran] 4 mg PO Q8H PRN PRN #30 tab 03/16/18 Omeprazole 40 mg PO DAILY #30 capsule. 03/21/18 Magic Mouth Wash 15 ml PO Q6H PRN PRN #240 ml 03/22/18 Magic Mouth Wash 15 ml PO Q6H PRN PRN #240 ml 03/22/18 Hydrocodone Bitart/Apap 5-325 [[place] 5MG-325MG] 1 tab PO Q6H PRN PRN 2 Days #5 tab 03/24/18 The following prescriptions were given: Hydrocodone Bitart/Apap 5-325 [[place] 5MG-325MG] 1 tab PO Q6H PRN PRN 2 Days #5 tab PRN Reason: Pain Primary Care Physician: Que Parr MD [Primary Care Provider] - Please Follow Up With: Ida Anderson MD - call [phone] with any concerns after 5pm/weekend When: call office today or tuesday for f/u 10 days from surgery for suture removal
[2018-03-24 09:40] VITALS: BP 129/79; BP 139/76; PULSE 60; RESP 16; O2SAT 94
--- NOTE | 2018-03-24 09:41 | DCINST_ITS ---
Discharge Diet: No Restrictions Discharge Activity: May not drive while taking narcotic pain medications., - - no lifting >15 lb w right arm x 1 week May shower in (days): 5 - Keep port site clean and dry x 5 days then ok to shower Lifting Restrictions: no lifting >15 lbs w right arm Call your doctor if your incision/area has: Continuous Slow Oozing, Sudden Increased Bleeding, Increased Pain/ Swelling, Increased Redness, Foul Smelling Discharge, Swelling at the incision site Call your doctor if you observe: Fever of 101 or Higher Remove Dressing in (days):: 5 - ok to remove for chemo but recover Cleanse incision/area with: Keep Dressing Clean & Dry - for 5 days Allergies/Adverse Reactions: Allergies No Known Allergies Allergy (Verified 03/24/18 07:26) Medications to take at Discharge Allopurinol 100 mg PO QODAY 02/08/18 Aspirin E.C. [Ecotrin] 81 mg PO DAILY@0800 02/08/18 Calcium Carbonate [Calcium] 600 mg PO DAILY 02/08/18 Garlic 500 mg PO DAILY 02/08/18 Lisinopril [Zestril] 5 mg PO DAILY 02/08/18 Methylcellulose [Fiber Therapy] 625 mg PO DAILY 02/08/18 Multivitamin [Multiple Vitamins] 1 each PO DAILY 02/08/18 [place]-3/Dha/Epa/Fish Oil [[place] 3 500 Softgel] 1 each PO DAILY 02/08/18 Lidocaine/Prilocaine [Lidocaine-Prilocaine Cream] 30 gm TP DAILY PRN PRN #1 cream..g. 03/16/18 Ondansetron HCl [Zofran] 4 mg PO Q8H PRN PRN #30 tab 03/16/18 Omeprazole 40 mg PO DAILY #30 capsule. 03/21/18 Magic Mouth Wash 15 ml PO Q6H PRN PRN #240 ml 03/22/18 Magic Mouth Wash 15 ml PO Q6H PRN PRN #240 ml 03/22/18 Hydrocodone Bitart/Apap 5-325 [[place] 5MG-325MG] 1 tab PO Q6H PRN PRN 2 Days #5 tab 03/24/18 The following prescriptions were given: Hydrocodone Bitart/Apap 5-325 [[place] 5MG-325MG] 1 tab PO Q6H PRN PRN 2 Days #5 tab PRN Reason: Pain Primary Care Physician: Que Parr MD [Primary Care Provider] - Please Follow Up With: Ida Anderson MD - call [phone] with any concerns after 5pm/weekend When: call office today or tuesday for f/u 10 days from surgery for suture removal
[2018-03-24 09:45] VITALS: BP 129/79; BP 141/80; PULSE 60; RESP 16; TEMP 36.3; O2SAT 94
[2018-03-24 10:09] VITALS: BP 129/79
== END 2018-03-24 10:44 | disposition home or self-care (01) ==
LOC: SDC 06:36 → AC 06:38
PROVIDERS: Family Provider Family Medicine; PCP Family Medicine; Visit Provider Surgery
PROC: (CPT 36561; principal; 2018-03-24 08:15)
DX: Z45.2 Encounter for adjustment and management of vascular access device (principal); C10.0 Malignant neoplasm of vallecula; R13.12 Dysphagia, oropharyngeal phase; I10 Essential (primary) hypertension; Z93.1 Gastrostomy status; Z87.891 Personal history of nicotine dependence; Z85.46 Personal history of malignant neoplasm of prostate; Z79.82 Long term (current) use of aspirin; Z79.899 Other long term (current) drug therapy
CPT/HCPCS: 36561; 71045; 77001; 77386; J7120; C1788

== ENCOUNTER 2018-03-31 09:18 | Outpatient (RCR) | payer MEDICARE, SELFPAY ==
[2018-03-16 10:37] VITALS: BMI 27.5
== END 2018-04-01 23:59 ==
LOC: NS 09:18
PROVIDERS: Family Provider Family Medicine; PCP Family Medicine; Visit Provider Student in an Organized Health Care Education/Training Program
DX: C10.9 Malignant neoplasm of oropharynx, unspecified (principal); Z71.3 Dietary counseling and surveillance
CPT/HCPCS: 97802

== ENCOUNTER 2018-05-03 08:13 | Outpatient (RCR) | payer MEDICARE, SELFPAY ==
[2018-03-16 10:37] VITALS: BMI 27.5
== END 2018-06-02 23:59 ==
LOC: NS 08:13
PROVIDERS: Family Provider Family Medicine; PCP Family Medicine; Visit Provider Student in an Organized Health Care Education/Training Program
DX: C10.9 Malignant neoplasm of oropharynx, unspecified (principal); C01 Malignant neoplasm of base of tongue; Z97.8 Presence of other specified devices
CPT/HCPCS: 97803

== ENCOUNTER → 2018-05-11 12:19 | Outpatient (CLI) | payer MEDICARE, SELFPAY ==
[2018-03-16 10:37] VITALS: BMI 27.5
--- NOTE | 2018-05-11 12:21 | RAD_ITS ---
STUDY: X-RAY CHEST REASON FOR EXAM: Male, 78 years old. Malignant neoplasm of the oropharynx TECHNIQUE: PA and lateral views of the chest. COMPARISON: March 24, 2018 FINDINGS: Port on the right extends to the superior vena cava. There is hyperinflation of the lungs consistent with chronic obstructive lung disease (COPD). There is increased size of cystic space on the left. Lower lung fibrotic densities are seen There are scattered calcified pleural plaques. Normal size heart. Normal mediastinum and stefani. Normal visualized pulmonary arteries. There is atherosclerotic tortuosity of the aortic arch and descending thoracic aorta. There is demineralization of the osseous structures. Some degenerative changes of the spine. Normal visualized ribs, clavicles, and shoulders. There is a percutaneous gastrostomy in the upper abdomen. RAD/Chest PA and Lateral IMPRESSION: Degenerative changes, as described above. No demonstrated acute cardiopulmonary process. Electronically Signed: Esequiel Triana MD at 16:22 EDT , Service support ,
== END ==
PROVIDERS: Family Provider Family Medicine; PCP Family Medicine; Visit Provider Internal Medicine Hematology & Oncology
DX: C10.9 Malignant neoplasm of oropharynx, unspecified (principal); R91.8 Other nonspecific abnormal finding of lung field
CPT/HCPCS: 71046

== ENCOUNTER 2018-07-06 10:46 | Outpatient (RCR) | payer MEDICARE, SELFPAY ==
[2018-03-16 10:37] VITALS: BMI 27.5
== END 2018-07-06 19:00 | disposition home or self-care (01) ==
LOC: SP 10:46
PROVIDERS: Family Provider Family Medicine; PCP Family Medicine; Visit Provider Nurse Practitioner Family
DX: C10.9 Malignant neoplasm of oropharynx, unspecified (principal); H90.0 Conductive hearing loss, bilateral
CPT/HCPCS: 92526

== ENCOUNTER → 2018-08-23 13:08 | Outpatient (CLI) | payer MEDICARE, SELFPAY ==
[2018-03-16 10:37] VITALS: BMI 27.5
--- NOTE | 2018-08-23 13:12 | RAD_ITS ---
STUDY: SWALLOWING STUDY REASON FOR EXAM: Male, 78 years old. Dysphagia. TECHNIQUE: The examination was performed with Speech Pathology in attendance. Under fluoroscopic observation, the patient ingested thin barium, thick barium, barium pudding, and barium coated cracker. FLUOROSCOPY TIME: 4:56 minutes/seconds. 3606 spot images were obtained. RADIOLOGIST INVOLVEMENT: Radiologist was present and providing direct supervision. COMPARISON: Comparison is made with prior study dated March 20, 2018. FINDINGS: The following was observed during swallowing of the various mixtures of barium: Thin Barium: Silent aspiration with ingestion of thin liquids. Thick Barium: Silent aspiration with nectar thickened liquids. Penetration with injection upon ingestion of honey thickened liquids. Barium Pudding: There was no evidence of aspiration or laryngeal penetration. Barium Coated Cracker: There was no evidence of aspiration or laryngeal penetration. RAD/Swallowing Function w/Video IMPRESSION: Cephalic aspiration with ingestion of thin liquids and nectar thickened liquids. The swallow study findings were discussed with the patient by the speech pathologist at the conclusion of the examination. Please see speech pathology report for more information and recommendations. Electronically Signed: Neal River MD at 13:46 EST Tel [phone], Service support ,
--- NOTE | 2018-08-23 13:30 | SP.MBSS_ITS ---
PRIMARY / SECONDARY DIAGNOSIS: malignant neoplasm (C76.0), dysphagia (R13.12) REFERRING PHYSICIAN: malignant neoplasm (C76.0), dysphagia (R13.12) CURRENT DIET: regular textures, thin liquids DENTITION: WFL MENTAL STATUS: WNL RESPIRATORY STATUS: O2 via room air PREVIOUS MODIFIED BARIUM SWALLOW STUDY: 03/20/2018 MBS revealed mild to moderate oropharyngeal dysphagia (R13.12) with consistent penetration without complete ejection with thin liquids. 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 The Patient reports eagerly awaiting PEG tube removal, though persisting low appetite with resulting weight loss (approximately 8-10lbs) has complicated removal; reports no current limitations in regards to PO textures. The Patient reports persistent hypogeusia and xerostomia, denies numbness / weakness, sialorrhea, or otalgia. The Patient is able to ambulate without difficulty (no cane / walker), independent for all activities of daily living, though reports increased forgetfulness (this has been noted by multiple healthcare providers). MEDICAL HISTORY: Malignant neoplasm of the head / face / neck, skin cancer, prostate cancer / malignancy undetectable PSA per patient status post prostatectomy, prior left knee surgery due to meniscus tear, hiatal hernia status post-surgical repair, hypertension, gout STUDY FINDINGS: Patient participated in a Modified Barium Swallow (MBS) study on 06/19/2018. Dr. River was the radiologist present for this evaluation. This study was recorded in the lateral view and images were sent to PACs for storage. The following consistencies were presented to this patient for analysis of oropharyngeal swallow function: thin liquids, nectar thickened liquids, honey thickened liquids, pudding, and a regular textured, Jenni Doone cookie. Results of the MBS are as follows: PENETRATION / ASPIRATION SCALE (FINK): 1 = does not enter airway 2 = enters airway/above vocal folds/ejected 3 = enters airway/above vocal folds/not ejected 4 = enters airway/contacts vocal folds/ejected 5 = enters airway/contacts vocal folds/not ejected 6 = enters airway/below vocal folds/ejected 7 = enters airway/below vocal folds/not ejected despite effort 8 = enters airway/below vocal folds/no effort VIDEOFLOROSCOPIC SCALE SCORE (FINK): Grade I = aspiration of material that has penetrated into the laryngeal vestibule, intact cough reflex Grade II = aspiration < 10 % of the bolus, intact cough reflex Grade III = aspiration of < 10 % of the bolus, reduced cough reflex or aspiration of > 10 % of the bolus, intact cough reflex Grade IV = aspiration of > 10 % of the bolus, reduced cough reflex PENETRATION / ASPIRATION SCALE (SCORE) WITH VIDEOFLOROSCOPIC SCALE SCORE: Thin liquid - 5 mL tsp.: 2 Thin liquids via cup (single sip): 5 Thin liquids via cup (single sip): 6 - Grade III Thin liquids via cup (chin tuck): 8 - Grade III [place] thickened liquids via cup (single sip): 6 - Grade III [place] thickened liquids via cup (single sip): 8 - Grade III Honey thickened liquids via cup (single sip): 8* - Grade III Pudding via spoon: 1 Regular textured cookie: 1 Honey thickened liquids via cup (effort swallow): 1 Honey thickened liquids via cup (effort swallow): 1 Honey thickened liquids via cup (chin tuck): 5 * denotes copious amounts of barium within the laryngeal vestibule prior to trial initiation, attributed to post prandial penetration of nectar thickened liquids; majority of barium within the vestibule likely nectar consistency IMPRESSION: DIAGNOSIS: moderate to severe oropharyngeal dysphagia (R13.12); Swallowing Performance Status Scale: 6 ORAL PHASE CHARACTERIZED BY: LABIAL SEAL: no labial escape (no change) TONGUE CONTROL DURING BOLUS MANIPULATION: escape to lateral buccal cavity/floor of mouth (improved) BOLUS PREPARATION / MASTICATION: slow prolonged chewing/mashing with complete recollection (no change) BOLUS TRANSPORT / LINGUAL MOTION: occasional repetitive / disorganized tongue motion (worse) ORAL RESIDUE: residue collection on oral structures (worse) PHARYNGEAL PHASE CHARACTERIZED BY: INITIATION OF PHARYNGEAL SWALLOW: bolus head in pyriforms at first hyoid excursion (worse) SOFT PALATE ELEVATION: no bolus between soft palate and pharyngeal wall (no change) LARYNGEAL ELEVATION: minimal superior movement of thyroid cartilage/minimal approximation of arytenoids cartilage to epiglottic petiole (no change) ANTERIOR HYOID EXCURSION: partial anterior movement (no change) EPIGLOTTIC MOVEMENT: partial epiglottic inversion (no change) LARYNGEAL VESTIBULE CLOSURE AT HEIGHT OF SWALLOW: incomplete laryngeal vestibule closure with narrow column of air/contrast in laryngeal vestibule (no change) PHARYNGEAL STRIPPING WAVE: pharyngeal stripping wave present / diminished (worse) PHARYNGOESOPHAGEAL SEGMENT OPENING: partial distension and partial duration; partial obstruction of flow (worse) TONGUE BASE RETRACTION: narrow column of contrast between tongue base and posterior pharyngeal wall (worse) PHARYNGEAL RESIDUE: collection of residue within or on pharyngeal structures (worse) ESOPHAGEAL PHASE CHARACTERIZED BY: ESOPHAGEAL BOLUS CLEARANCE IN THE UPRIGHT POSITION: could not view EFFECTS OF TREATMENT STRATEGIES ATTEMPTED: Chin tuck posture = ineffective Anterior lean = ineffective Cough and reswallow = ineffective Double swallow = ineffective Effort swallow = moderately effective Liquid chaser = moderately effective Reduced bolus size = moderately effective DIET TEXTURE RECOMMENDATIONS: Will recommend a mechanical soft textured, honey thickened liquid diet. COMPENSATORY STRATEGIES RECOMMENDED: Reduced bolus volume, reduced rate of intake, liquid chaser, seated upright at 90 degrees during PO intake, remain upright for 30-60 minutes post meal (GERD precaution) INTERPRETATION OF RESULTS: Patient presents with moderate to severe oropharyngeal dysphagia (R13.12) secondary to stage II ([id number]) squamous cell carcinoma involving the lingual base, vallecula, and lingual surface of the epiglottis status post definitive chemoradiation (05/08/2018 to 05/08/2018). Oral preparatory phase marked by mastication insufficiency, with prolonged mastication requiring addition of liquids to facilitate full bolus breakdown. Oral transitional phase marked by mild undulating lingual movements during transpiration with suboptimal bolus clearance and containment / premature posterior bolus loss. Pharyngeal phase marked by pharyngeal swallow onset dyssynchrony combining with notable reduction in pharyngeal motility directly contributing to prandial and post prandial penetration and subsequent aspiration; and continued marked reductions in hyolaryngeal excursion resulting in poor laryngeal vestibule closure and consistent prandial penetration with subsequent aspiration with less viscous textures, without sufficient laryngeal vestibule pressure generated to completely expel penetrated material. Patient noted to SILENTLY aspirate with very small amounts of thin and nectar thickened liquids, with clinical assessment at bedside relying on identification of classic overt signs and symptoms of aspiration unreliable. Questionable silent aspiration with honey thickened liquids, though copious amounts of barium consisting of nectar thickened liquids were noted within the laryngeal vestibule prior to trial initiation resulting in silent aspiration of very minimal amounts of contrast attributed to post prandial penetration of nectar thickened liquids; majority of barium within the laryngeal vestibule at time of aspiration likely nectar vs. honey thickened liquid consistency. Mild bony projections / osteophytes protruding from the anterior spine, little to no impact on swallow function. Recent findings consisting of reduction in pharyngeal constrictor motion, laryngeal valving, upper esophageal segment opening, and pharyngeal motility, in addition to silent aspiration are all similar in nature to expected deviations in the swallow pattern post irradiation. RECOMMENDATIONS: Would consider this Patient to be at higher risk for both malnutrition and dehydration (due to the recommended diet texture restrictions if alternative means of nutrition are removed) and pulmonary complications associated with aspiration (due to the presence of SILENT aspiration, expected persisting nature of the Patients dysphagia, intermittent use and possible increased use of alternative means of nutrition, and diminished cognition following chemotherapy with suspected baseline progressive cognitive impairments). Would further consider the Patient to be at higher risk of non-compliance, both due to previously stated distaste for thickened liquids, and the Patients general poor recall abilities. The Patient is at HIGH risk for continual changes and possible decline in both swallow functioning / dysphagia severity post irradiation (late effects of radiation fibrosis can occur upwards of 40 years post treatment); would benefit from continual monitoring and yearly follow up modified barium swallow studies for at least 5 years post irradiation. Would consider implementation of the Blank Free Water Protocol (FFWP) following Patient and family education / training if medically appropriate, though again the Patients current level of cognitive abilities will likely complicate implementation. The Patient requires intensive skilled speech-language intervention targeting diet texture management and training / implementation of recommended compensatory strategies; Patient and caregiver training targeting meal preparation / thickened liquid preparation; training and implementation of a home based swallowing exercise program to promote the highest level of preserved post- irradiation swallow functioning; training and implementation of a home oral care protocol to reduce the effects of xerostomia and improve / maintain the integrity of the oral mucosa reducing the risk of aspiration related pulmonary complications; training, implementation, and Patient education regarding implementation of the FFWP if appropriate; and Patient / caregiver education regarding post-irradiation dysphagia and associated symptomology. ADDITIONAL COMMENTS/RECOMMENDATIONS: Results and recommendations were discussed with the Patient immediately following MBS completion, with the Patient verbalizing understanding and agreement with all recommendations and education provided. IMAGE COUNT: [id number] G-CODES: SWALLOWING [id number] Current Status: CK SWALLOWING G8997 Goal Status: CI SWALLOWING G8998 Discharge Status: CK Gage Medina M.A., CCC-CHIEF METEOROLOGIST [facility] Speech-Language Pathology Department [email or web address]
== END ==
PROVIDERS: Family Provider Family Medicine; PCP Family Medicine; Referring Provider Nurse Practitioner Family; Visit Provider Nurse Practitioner Family
DX: R13.10 Dysphagia, unspecified (principal)
CPT/HCPCS: 74230; 92611; G8996; G8997; G8998

== ENCOUNTER → 2018-12-13 13:08 | Outpatient (CLI) | payer MEDICARE, SELFPAY ==
[2018-03-16 10:37] VITALS: BMI 27.5
[2018-11-13 11:09] VITALS: BMI 24.7
--- NOTE | 2018-12-13 13:12 | RAD_ITS ---
STUDY: SWALLOWING STUDY REASON FOR EXAM: Male, 78 years old. Dysphagia. TECHNIQUE: The examination was performed with Speech Pathology in attendance. Under fluoroscopic observation, the patient ingested thin barium, thick barium, barium pudding, and barium coated cracker. FLUOROSCOPY TIME: 4:01 minutes/seconds. 3613 fluoroscopic images were obtained. RADIOLOGIST INVOLVEMENT: Radiologist was present and providing direct supervision. COMPARISON: Comparison is made with prior study dated August 23, 2018. FINDINGS: The following was observed during swallowing of the various mixtures of barium: Thin Barium: Transient penetration with ingestion of thin liquids. This does not improve with the chin tuck maneuver. Thick Barium: Penetration with ingestion of nectar thickened liquids. Barium Pudding: There was no evidence of aspiration or laryngeal penetration. Barium Coated Cracker: There was no evidence of aspiration or laryngeal penetration. RAD/Swallowing Function w/Video IMPRESSION: Penetration with ingestion of both thin liquids and nectar thickened liquids. The swallow study findings were discussed with the patient by the speech pathologist at the conclusion of the examination. Please see speech pathology report for more information and recommendations. Electronically Signed: Neal River, at 15:09 EDT , Service support ,
--- NOTE | 2018-12-13 13:45 | SP.MBSS_ITS ---
PRIMARY / SECONDARY DIAGNOSIS: malignant neoplasm (C76.0), dysphagia (R13.12) REFERRING PHYSICIAN: Dr. Houston Esparza DO, MS CURRENT DIET: mechanical soft textures, honey thickened liquids; alternative means of nutrition (PEG) DENTITION: dentures MENTAL STATUS: appropriate for participation. 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 MEDICAL HISTORY: Malignant neoplasm of the head / face / neck, skin cancer, prostate cancer / malignancy undetectable PSA per patient status post prostatectomy, prior left knee surgery due to meniscus tear, hiatal hernia status post-surgical repair, hypertension, gout PREVIOUS MODIFIED BARIUM SWALLOW STUDY: 03/20/2018 MBS revealed mild to moderate oropharyngeal dysphagia (SPS:4) with consistent penetration without complete ejection with thin liquids. 08/23/2018 MBS revealed moderate to severe oropharyngeal dysphagia (DSRS:5; SPS:6) with grade III SILENT aspiration of thin and nectar thickened liquids. ASSESSMENT PARAMETERS: The Patient participated in a Modified Barium Swallow (MBS) study on 12/13/2018. Dr. River was the radiologist present for this evaluation. This study was recorded in the lateral view and images were sent to PACs for storage. Scoring was completed through each trial via the 8-point Penetration-Aspiration Scale (PAS) and Videofluoroscopic Scale Score (VSS), and summarized via the Modified Barium Swallow Impairment Profile (MBSImP) and Bolus Residue Scale (BRS), with severity scoring through the Dysphagia Severity Rating Scale (DSRS), Swallowing Performance Scale (PSP), and the Dynamic Imaging Grade of Swallowing Toxicity (DIGEST), and recommended diet textures through the International Dysphagia Diet Standardisation Initiative (IDDSI). 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 OBJECTIVE ASSESSMENT OF SWALLOW FUNCTION (QUANTITATIVE ? PER TRIAL): PENETRATION / ASPIRATION SCALE (FINK): 1 = does not enter airway 2 = enters airway/above vocal folds/ejected 3 = enters airway/above vocal folds/not ejected 4 = enters airway/contacts vocal folds/ejected 5 = enters airway/contacts vocal folds/not ejected 6 = enters airway/below vocal folds/ejected 7 = enters airway/below vocal folds/not ejected despite effort 8 = enters airway/below vocal folds/no effort VIDEOFLOROSCOPIC SCALE SCORE (FINK): Grade I = aspiration of material that has penetrated into the laryngeal vestibule, intact cough reflex Grade II = aspiration < 10 % of the bolus, intact cough reflex Grade III = aspiration of < 10 % of the bolus, reduced cough reflex or aspiration of > 10 % of the bolus, intact cough reflex Grade IV = aspiration of > 10 % of the bolus, reduced cough reflex PENETRATION / ASPIRATION SCALE (SCORE) WITH VIDEOFLOROSCOPIC SCALE SCORE: Thin liquid - 5 mL tsp.: 2 Thin liquids via cup (sequential swallows): 5 Thin liquids via cup (sequential swallows): 5 Thin liquids via cup (sequential swallows): 3 Thin liquids via cup (single sip): 3 Thin liquids via cup (single sip): 2 Thin liquids via cup (chin tuck): 2 Thin liquids via cup (chin tuck): 3 Thin liquids via cup (chin tuck): 3 Antonito thickened liquids via cup (single sip): 3 Antonito thickened liquids via cup (single sip): 5 Antonito thickened liquids via cup (chin tuck): 1 Antonito thickened liquids via cup (chin tuck): 2 Pudding via spoon: 1 Regular textured cookie: 1 Thin liquids via cup (chin tuck): 3 Antonito thickened liquids via cup (chin tuck): 3 OBJECTIVE ASSESSMENT OF SWALLOW FUNCTION (QUANTITATIVE ? AGGREGATE): MODIFIED BARIUM SWALLOW IMPAIRMENT PROFILE (MBSImP) LABIAL SEAL: 0 (of 4) no labial escape TONGUE CONTROL BOLUS MANIPULATION: 1 (of 3) lateral buccal cavity / floor of mouth BOLUS PREPARATION / MASTICATION: 1 (of 3) slow prolonged; complete recollection BOLUS TRANSPORT / LINGUAL MOTION: 0 (of 4) brisk tongue motion ORAL RESIDUE: 1 (of 4) trace residue lining oral structures INITIATION OF PHARYNGEAL SWALLOW: 3 (of 4) bolus head in pyriforms SOFT PALATE ELEVATION: 1 (of 4) trace column between soft palate & pharyngeal wall LARYNGEAL ELEVATION: 1 (of 3) partial superior movement; partial approximation ANTERIOR HYOID EXCURSION: 1 (of 2) partial anterior movement EPIGLOTTIC MOVEMENT: 1 (of 2) partial inversion LARYNGEAL VESTIBULE CLOSURE: 1 (of 2) incomplete PHARYNGEAL STRIPPING WAVE: 1 (of 2) present / diminished PE SEGMENT OPENIN (of 3) partial distension / duration / obstruction TONGUE BASE RETRACTION: 2 (of 4) narrow column of contrast PHARYNGEAL RESIDUE: 2 (of 4) collection of residue ESOPHAGEAL BOLUS CLEARANCE: could not view ORAL TOTAL SUM: (previously 06/24) PHARYNGEAL TOTAL SUM: (previously 09/23) OVERALL IMPRESSION (OI) SCORE: (previously ) BOLUS RESIDUE SCALE (BRS): 4 (of 6) residue in valleculae and pyriform sinus SWALLOWING PERFORMANCE SCALE (SPS): 4 (mild to moderate) DYSPHAGIA SEVERITY RATING SCALE (DSRS): 4 (moderate) DYNAMIC IMAGING GRADE OF SWALLOWING TOXICITY (DIGEST) DIGEST SAFETY GRADE: Grade 2 DIGEST EFFICIENCY GRADE: Grade 1 SUMMARY DIGEST GRADE: Grade 2 (moderate) OBJECTIVE ASSESSMENT OF SWALLOW FUNCTION (QUALITATIVE): ORAL PREPARATORY PHASE: oral preparatory phase marked by mild (albeit effective) mastication inefficiency with sufficient oral containment; preserved management of breathing / bolus formation without disrupted E ? S ? E pattern. ORAL TRANSITIONAL PHASE: oral transitional phase marked by sufficient bolus transportation without lingual discoordination (no tremor / undulations); fragmented swallowing (piecemeal deglutition) likely attributed to anticipated issues with pharyngeal phase motility; sufficient oral clearance; intermittent premature posterior bolus loss appeared to improve with execution of the chin tuck posture. PHARYNGEAL PHASE: pharyngeal phase marked by consistent pharyngeal swallow delay / dyssynchrony resulting in pre-prandial and prandial penetration of all liquids; reduced hyolaryngeal excursion and duration with suboptimal laryngeal vestibule closure / pressure / duration; inconsistent laryngeal vestibule pressure generated to fully expel penetrated material; impaired (albeit improved) pharyngeal dysmotility most prominently with more solid textures attributed to reduced tongue based retraction, reduced posterior pharyngeal stripping wave action, and to a lesser extent reduced pharyngoesophageal segment opening; mild velopharyngeal insufficiency without nasoregurgitation. ESOPHAGEAL PHASE: No obvious esophageal phase abnormalities observed. CONTRIBUTING / COMPLICATING FACTORS AND NOTABLE FINDINGS: sufficient cued volitional cough intensity to expel penetrated material; cricopharyngeal bar located at the C-7 level, minimal to no impact on pharyngeal motility or pharyngeal timing; cervical osteophytes located at the C-4 to C-7 levels, minimal to no impact on pharyngeal motility or pharyngeal timing; noted calcification along the anterior vocal folds along with small locations of calcification along the anterior trachea prior to trials, possibly complicating assessment (though unlikely). No aspiration appreciated throughout trials, unable to definitively rule out silent aspiration. RECOMMENDATIONS AND CONSIDERATIONS: Current findings consisting of reduction in pharyngeal constrictor motion, laryngeal valving, upper esophageal segment opening, and pharyngeal motility are similar in nature to expected deviations in the swallow pattern post irradiation, though although still present have somewhat functionally improved in comparison to the most recent study. Would consider the Patient to be at higher risk for continual changes and possible decline in swallow functioning / dysphagia severity post irradiation (late effects of radiation fibrosis can occur upwards of 40 years post treatment); would benefit from continual monitoring and yearly follow up modified barium swallow studies for at least 5 years post irradiation. Would continue to consider this Patient to be at higher risk for both malnutrition and dehydration (due to the Patients continued struggles to maintain weights without use of alternative means of nutrition if alternative means of nutrition are removed) and pulmonary complications associated with aspiration (given the Patient?s recent history of SILENT aspiration, persisting nature of the Patients dysphagia despite improvements, intermittent use and possible increased use of alternative means of nutrition, and diminished cognition following chemotherapy with suspected baseline progressive cognitive impairments). Recommend continued implementation of the Blank Free Water Protocol (FFWP), as the Patient and family have demonstrated competency during intervention sessions. Would consider quality of life if the Patient and Patient?s family request advancement to less restrictive diet. Will continue to recommend aggressive oral care with regular dental cleanings to promote optimal oral health and reduce aspiration risk. The Patient would benefit from continued skilled speech-language intervention targeting diet texture management and training / implementation of recommended compensatory strategies; Patient and caregiver training targeting meal preparation / thickened liquid preparation; training, implementation, and adjustments in the Patient?s home based swallowing exercise program to promote the highest level of preserved post-irradiation swallow functioning; Patient / caregiver education regarding post-irradiation dysphagia and associated symptomology; and Patient / caregiver training targeting meal preparation / thickened liquid preparation DIET TEXTURE RECOMMENDATIONS: Will recommend a mechanical soft textured (IDDSI: 5), nectar thickened liquid (IDDSI: 2) diet, with considerations for advancement to thin liquids (IDDSI: 1) pending discussion with Patient, family, and oncology staff. RECOMMENDED COMPENSATORY STRATEGIES: Chin tuck, reduced bolus volume / rate of ingestion, liquid chaser at reasonable intervals, seated upright at 90 degrees during PO intake with a forward / anterior lean, remain upright for 30-60 minutes post meal (GERD precaution) IMAGE COUNT: [id number] Gage Medina M.A., CCC-SHOES HAND SEWER MBSImP Certified, LSVT Certified [facility] Speech-Language Pathology Department [email or web address]
== END ==
PROVIDERS: Family Provider Family Medicine; PCP Family Medicine; Referring Provider Student in an Organized Health Care Education/Training Program; Visit Provider Student in an Organized Health Care Education/Training Program
DX: C10.9 Malignant neoplasm of oropharynx, unspecified (principal)
CPT/HCPCS: 74230; 92611

== ENCOUNTER → 2019-01-23 10:59 | Outpatient (CLI) | payer MEDICARE, SELFPAY ==
[2018-03-16 10:37] VITALS: BMI 27.5
[2018-11-13 11:09] VITALS: BMI 24.7
[2019-01-23 12:47] LABS: Color, Urine Yellow (Yellow); Glucose, Dipstick Normal (Normal); Ketone-Dipstick Negative (Negative); Leukocyte Esterase-Dipstick Negative /ul (Negative); Nitrite-Dipstick Negative (Negative); Occult Blood-Urine Negative /ul (Negative); Protein-Dipstick Negative (Negative); Specific Gravity, Urine 1.015 (1.002-1.030); Urine Bilirubin Dipstick Negative (Negative); Urine Clarity Clear (Clear); Urine Urobilinogen Normal (Normal); Urine pH 6.5 (5.0 - 8.0)
[2019-01-23 12:56] LABS: ALB/GLOB Ratio 1.3 RATIO (0.9-2.4); AST(SGOT) 18 U/L (15-37); Alanine Aminotransfer ALT/SGPT 19 U/L (16-61); Albumin, Serum 3.9 g/dL (3.2-5.0); Alkaline Phosphatase 74 U/L (45-117); Anion Gap 4 (5-15); BUN 23 mg/dL (7-18); BUN/Creat Ratio 17.6 RATIO (10-20); Calcium,Total 9.1 mg/dL (8.5-10.1); Chloride 105 mmol/L (98-107); Creatinine, Serum 1.31 mg/dL (0.70-1.30); EST Glomerular Filtration Rate 56 mL/min (>60); Est Glom Filt Rate - Afr Amer 68 mL/min (>60); Glucose 98 mg/dL (74-106); PSA,Total- Diagnostic < 0.01 ng/mL (0.0-4.0); Potassium 4.3 mmol/L (3.5-5.1); Protein, Total 6.9 g/dL (6.4-8.2); Sodium Level 141 mmol/L (136-145); Thyroid Stim Hormone (TSH) 4.62 uIU/mL (0.358-3.74)
[2019-01-23 13:08] LABS: Absolute Lymphocyte Count 0.53 X10^3/ul (0.83-4.51); Absolute Neutrophil Count 4.8 X10^3/uL (2.0-7.7); Basophil# 0.03 X10^3/uL; Basophil% 0.5 % (0-1); Eosinophil# 0.06 X10^3/uL; Hematocrit 44.5 % (40-54); Hemoglobin 14.6 g/dl (13.0-16.5); Lymphocyte # 0.53 X10^3/ul (4.0); Lymphocyte % 8.8 % (19-41); Mean Corp Hgb Conc 32.8 g/gl (32-36); Mean Corpuscular Hgb 30.4 pg (27.0-32.0); Mean Corpuscular Volume 92.5 fL (80-94); Mean Platelet Vol. 9.1 fl (6.2-12.0); Monocyte# 0.64 X10^3/uL; Monocyte% 10.6 % (0-10); Neutrophil # 4.78 X10^3/uL (2.7-7.7); Neutrophil % 79.1 % (47-70); Platelet Count 226 K/mm3 (150-450); RBC Distribution Width CV 13.7 % (11.6-14.6); RBC Distribution Width SD 46.6 fl (35.1-43.9); Red Blood Count 4.81 M/mm3 (4.6-6.2)
[2019-01-23 13:14] LABS: Differential Indicated SCAN CRITERIA MET; POSITIVE COUNT NO; POSITIVE DIFFERENTIAL YES; POSITIVE MORPHOLOGY NO
[2019-01-24 10:03] LABS: T4 Free Direct 0.75 ng/dL (0.76-1.46)
== END ==
PROVIDERS: Family Provider Family Medicine; PCP Family Medicine; Referring Provider Family Medicine; Visit Provider Family Medicine
DX: I10 Essential (primary) hypertension (principal); R35.0 Frequency of micturition; R94.6 Abnormal results of thyroid function studies; Z85.46 Personal history of malignant neoplasm of prostate
CPT/HCPCS: 36415; 80053; 81002; 84153; 84439; 84443; 85025; 87086

== ENCOUNTER → 2019-02-13 12:01 | Outpatient (CLI) | payer MEDICARE, SELFPAY ==
[2018-03-16 10:37] VITALS: BMI 27.5
[2018-11-13 11:09] VITALS: BMI 24.7
--- NOTE | 2019-02-13 12:03 | RAD_ITS ---
STUDY: X-RAY CHEST REASON FOR EXAM: Male, 79 years old. History of laryngeal cancer. TECHNIQUE: PA and lateral views of the chest. COMPARISON: Comparison is made with prior study dated May 11, 2018. FINDINGS: The right-sided antony catheter has been removed. Hyperinflation. Residual pleural-parenchymal changes at the left lung base although this has improved. The previously seen cystic change in the left lower lobe as resolved. Normal size heart. Normal mediastinum and stefani. Normal visualized pulmonary arteries. There is atherosclerotic calcification of the aortic arch with tortuosity. There are diffuse degenerative changes of the visualized thoracic spine. Healed right rib fractures. There is no demonstrated abnormality of the visualized soft tissue structures of the upper abdomen. RAD/Chest PA and Lateral IMPRESSION: Mild residual pleural parenchymal changes at the left lung base although this has improved. The previously seen cystic structure in the left lower lobe has resolved. Electronically Signed: Neal River, at 12:28 EDT , Service support ,
== END ==
PROVIDERS: Family Provider Family Medicine; PCP Family Medicine; Referring Provider Internal Medicine Hematology & Oncology; Visit Provider Internal Medicine Hematology & Oncology
DX: C10.9 Malignant neoplasm of oropharynx, unspecified (principal)
CPT/HCPCS: 71046

== ENCOUNTER 2019-02-16 12:00 | Outpatient (RCR) | payer MEDICARE, SELFPAY ==
[2018-03-16 10:37] VITALS: BMI 27.5
--- NOTE | 2019-03-16 19:01 | HP.SP.DC_ITS ---
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 The Patient participated in intervention sessions consisting of diet texture management and training / implementation of recommended compensatory strategies; Patient and caregiver training targeting meal preparation / thickened liquid preparation; training, implementation, and adjustments in the Patient?s home based swallowing exercise program to promote the highest level of preserved post-irradiation swallow functioning; Patient / caregiver education regarding post-irradiation dysphagia and associated symptomology; and Patient / caregiver training targeting meal preparation / thickened liquid preparation. At the time of discharge, the Patent had demonstrated 2 month tolerance of advanced textures and liquids following 12/13/2018 MBS without out use of alternative supplementation (PEG). All goals have been met at this time, with discharge from the caseload warranted, with the Patient in agreement with discharge plans. Encouraged continued completion of the Patients home based exercises regimen as prescribed, with annual follow up clinical assessment and modified barium swallow study completion due to the delayed effects commonly identified in the head and neck cancer population post irradiation; anticipated follow up in August of 2019 (unless earlier i ntervention is indicated).
== END 2019-02-16 19:00 | disposition home or self-care (01) ==
LOC: SP 12:00
PROVIDERS: Family Provider Family Medicine; PCP Family Medicine; Visit Provider Nurse Practitioner Family
DX: C10.9 Malignant neoplasm of oropharynx, unspecified (principal); R13.12 Dysphagia, oropharyngeal phase
CPT/HCPCS: 92526

== ENCOUNTER → 2019-05-18 10:53 | Outpatient (CLI) | payer MEDICARE, SELFPAY ==
[2019-02-13 13:44] VITALS: BMI 27.5
[2019-05-15 13:51] VITALS: BMI 26.0
[2019-05-18 12:56] LABS: T4 Free Direct 0.87 ng/dL (0.76-1.46); Thyroid Stim Hormone (TSH) 3.35 uIU/mL (0.358-3.74)
== END ==
PROVIDERS: Family Provider Family Medicine; PCP Family Medicine; Referring Provider Family Medicine; Visit Provider Family Medicine
DX: E03.9 Hypothyroidism, unspecified (principal)
CPT/HCPCS: 36415; 84439; 84443

== ENCOUNTER → 2020-01-17 15:25 | Outpatient (CLI) | payer MEDICARE, SELFPAY ==
[2019-02-13 13:44] VITALS: BMI 27.5
[2019-11-15 14:23] VITALS: BMI 268.1
== END ==
PROVIDERS: PCP Family Medicine; Referring Provider Family Medicine; Visit Provider Family Medicine
DX: N39.0 Urinary tract infection, site not specified (principal)
CPT/HCPCS: 87086; 87088

== ENCOUNTER → 2020-02-13 14:49 | Outpatient (CLI) | payer MEDICARE, SELFPAY ==
[2019-02-13 13:44] VITALS: BMI 27.5
[2019-11-15 14:23] VITALS: BMI 268.1
== END ==
PROVIDERS: PCP Family Medicine; Visit Provider Family Medicine
DX: E03.9 Hypothyroidism, unspecified (principal)
CPT/HCPCS: 36415; 84439; 84443

== ENCOUNTER → 2020-07-30 16:55 | Outpatient (CLI) | payer MEDICARE, SELFPAY ==
[2019-02-13 13:44] VITALS: BMI 27.5
[2019-11-15 14:23] VITALS: BMI 268.1
[2020-07-30 18:28] LABS: Vitamin B12 998 pg/mL (211-911)
[2020-07-30 18:33] LABS: Thyroid Stim Hormone (TSH) 5.29 uIU/mL (0.358-3.74)
== END ==
PROVIDERS: PCP Family Medicine; Referring Provider Family Medicine; Visit Provider Family Medicine
DX: R41.3 Other amnesia (principal)
CPT/HCPCS: 36415; 82607; 84443

== ENCOUNTER → 2020-08-26 14:27 | Outpatient (CLI) | payer MEDICARE, SELFPAY ==
[2019-02-13 13:44] VITALS: BMI 27.5
[2019-11-15 14:23] VITALS: BMI 268.1
--- NOTE | 2020-08-26 14:30 | RAD_ITS ---
HISTORY: sob on exertion ADDITIONAL HISTORY: None provided. COMPARISON: 02/13/2019 EXAMINATION/TECHNIQUE: XR Chest 2 Views Number of images including paperwork: 3 FINDINGS: LUNGS AND PLEURA: Hyperinflation with areas of lucency and vascular attenuation consistent with emphysema. Linear bilateral opacities appear similar consistent with scarring. Blunting of the left costophrenic angle is stable, likely pleural scarring. Calcified pleural plaques again seen. CARDIAC SILHOUETTE: Stable. MEDIASTINUM AND DELMA: Stable. UPPER ABDOMEN: Unremarkable. SKELETON AND SOFT TISSUES: No acute findings. Degenerative changes. OTHER DEVICES AND HARDWARE: None. RAD/Chest PA and Lateral IMPRESSION: No acute cardiopulmonary abnormality. COPD. at 0315 Reported and signed by: Angelina Wright MD Electronically Signed: Angelina Wright MD at 3:15 EST Tel , Service support ,
== END ==
PROVIDERS: PCP Family Medicine; Referring Provider Family Medicine; Visit Provider Family Medicine
DX: R06.02 Shortness of breath (principal)
CPT/HCPCS: 71046

== ENCOUNTER → 2020-09-09 12:46 | Outpatient (CLI) | payer MEDICARE, SELFPAY ==
[2019-02-13 13:44] VITALS: BMI 27.5
[2019-11-15 14:23] VITALS: BMI 268.1
--- NOTE | 2020-09-09 12:48 | ECHOD_ITS ---
Reason For Study: BACON Procedure This was a 2D Doppler, Color Flow transthoracic echocardiogram. Myocardial strain analysis was performed in this exam to aid in the assessment of cardiac function. The exam was of adequate technical quality. Exam performed in department. Left Ventricle Normal LV size. Sigmoid septum. Mid cavitary false tendon noted. Left ventricular systolic function is normal. The estimated ejection fraction is 55 %. The global longitudinal strain = -19 % (normal). No evidence for diastolic dysfunction. No regional wall motion abnormalities noted. Right Ventricle Normal RV size. Normal systolic function. Atria Normal left atrium. Normal right atrium. No doppler evidence for ASD. Mitral Valve There is no mitral annular calcification. Normal mitral valve. Trivial mitral valve insufficiency. Tricuspid Valve Normal tricuspid valve. Trivial tricuspid valve insufficiency. Aortic Valve Trisinus/trileaflet aortic valve. Mild focal aortic valve calcification. Trivial aortic valve insufficiency. Pulmonic Valve The pulmonic valve is not well visualized. Great Vessels Normal sized aortic root. Pericardium/Pleural No pericardial effusion. MMode/2D Measurements & Calculations LVIDd: 4.2 cm IVSd: 1.5 cm Ao root diam: 3.5 cm LVIDs: 3.2 cm LVPWd: 0.94 cm LA dimension: 3.4 cm FS: 24.6 % LAV(MOD-bp): 34.7 ml LA A4 area: 12.2 cm2 RA A4 area: 12.3 cm2 LAV(MOD-bp) Indexed: 18.4 ml/m2 LAV(MOD-sp2): 38.6 ml LAV(MOD-sp4): 27.6 ml Time Measurements MV dec time: 0.44 sec Doppler Measurements & Calculations MV E max johnnie: 37.7 cm/sec Lat Peak E' Johnnie: 7.3 cm/sec Med Peak E' Johnnie: 5.7 cm/sec MV A max johnnie: 87.6 cm/sec E/E' lat: 5.2 E/E' med: 6.6 MV E/A: 0.43 MV V2 max: 79.6 cm/sec MV P1/2t max johnnie: 54.4 cm/sec Ao V2 max: 120.4 cm/sec MV max P.5 mmHg MV P1/2t: 106.0 msec Ao max P.8 mmHg MV V2 mean: 36.7 cm/sec MV dec slope: 150.2 cm/sec2 MV mean P.65 mmHg MVA(P1/2t): 2.1 cm2 MV V2 VTI: 20.8 cm LV V1 max: 77.9 cm/sec PA V2 max: 99.2 cm/sec LV V1 max P.4 mmHg Interpretation Summary Left ventricular systolic function is normal. The estimated ejection fraction is 55 %. The global longitudinal strain = -19 % (normal). Sigmoid septum. Mid cavitary false tendon noted. Trivial mitral valve insufficiency. Trivial tricuspid valve insufficiency. Mild focal aortic valve calcification. Trivial aortic valve insufficiency. No evidence for diastolic dysfunction. Ordering Physician: Que Parr Referring Physician: Que Parr Performed By: Alirio Kim RCS
== END ==
PROVIDERS: PCP Family Medicine; Referring Provider Family Medicine; Visit Provider Family Medicine
DX: R06.02 Shortness of breath (principal)
CPT/HCPCS: 93306

== ENCOUNTER → 2021-01-12 13:10 | Outpatient (CLI) | payer MEDICARE, SELFPAY ==
[2019-02-13 13:44] VITALS: BMI 27.5
[2020-12-22 14:48] VITALS: BMI 25.2
--- NOTE | 2021-01-12 13:35 | RAD_ITS ---
STUDY: X-RAY CHEST REASON FOR EXAM: Male, 80 years old. HEAD AND NECK CANCER TECHNIQUE: PA and lateral views of the chest. COMPARISON: 08/26/2020 FINDINGS: There is hyperinflation of the lungs consistent with chronic obstructive lung disease (COPD). There is no demonstrated pleural abnormality. Normal size heart. Normal mediastinum and stefani. Normal visualized pulmonary arteries. Normal visualized aortic arch and descending thoracic aorta. Normal visualized thoracic spine. Normal visualized ribs, clavicles, and shoulders. There is no demonstrated abnormality of the visualized soft tissue structures of the upper abdomen. RAD/Chest PA and Lateral IMPRESSION: No change from 08/26/2020. Electronically Signed: Azeem Lnage MD at 16:50 EDT Tel , Service support ,
== END ==
PROVIDERS: PCP Family Medicine; Referring Provider Internal Medicine Hematology & Oncology; Visit Provider Internal Medicine Hematology & Oncology
DX: C10.9 Malignant neoplasm of oropharynx, unspecified (principal); C61 Malignant neoplasm of prostate
CPT/HCPCS: 71046

== ENCOUNTER 2021-01-15 07:27 | Day surgery (SDC) | payer MEDICARE, SELFPAY ==
[2019-02-13 13:44] VITALS: BMI 27.5
[2020-12-22 14:48] VITALS: BMI 25.2
--- NOTE | 2021-01-12 12:59 | EKG12_ITS ---
Test Reason : PREOP Blood Pressure : / mmHG Vent. Rate : 062 BPM Atrial Rate : 062 BPM P-R Int : 180 ms QRS Dur : 072 ms QT Int : 412 ms P-R-T Axes : 076 063 064 degrees QTc Int : 418 ms Normal sinus rhythm Normal ECG Confirmed by PHUC COREY, CAITLYN ([id number]), supervising editor trailer CLAUDIA ARAYA ([id number]) on 01/12/2021 2:31:24 PM Referred By: Robe Leonard Confirmed By:CAITLYN FRIEND MD
[2021-01-12 15:14] LABS: Hematocrit 44.3 % (40-54); Hemoglobin 13.8 g/dL (13.0-16.5); Mean Corp Hgb Conc 31.2 g/dL (32-36); Mean Corpuscular Hgb 28.7 pg (27.0-32.0); Mean Corpuscular Volume 92.1 fL (80-94); Mean Platelet Vol. 8.8 fl (6.2-12.0); Platelet Count 247 K/mm3 (150-450); RBC Distribution Width CV 14.2 % (11.6-14.6); RBC Distribution Width SD 48.7 fl (35.1-43.9); Red Blood Count 4.81 M/mm3 (4.6-6.2); White Blood Count 8.4 K/mm3 (4.4-11.0)
[2021-01-12 15:54] LABS: Anion Gap 2 (5-15); BUN 24 mg/dL (7-18); BUN/Creat Ratio 17.5 RATIO (10-20); Calcium,Total 9.8 mg/dL (8.5-10.1); Chloride 106 mmol/L (98-107); Creatinine, Serum 1.37 mg/dL (0.70-1.30); EST Glomerular Filtration Rate 53 mL/min (>60); Est Glom Filt Rate - Afr Amer 64 mL/min (>60); Glucose 88 mg/dL (74-106); Potassium 4.3 mmol/L (3.5-5.1); Sodium Level 140 mmol/L (136-145); Thyroid Stim Hormone (TSH) 1.75 uIU/mL (0.358-3.74)
[2021-01-15] VITALS (7 sets, daily range): BP systolic 103–133; BP diastolic 51–75; PULSE 56–68; RESP 16; TEMP 36.1–37.1; O2SAT 92–96; BMI 24.9
--- NOTE | 2021-01-15 | HERN_PTH ---
PATIENT: ОЛЕГ DRAKE LOC: [facility] U#:[id number] AGE/SX: 80/M ROOM: RE01/15/[address]: Dr. Robe Leonard MD : [id number] BED: DIS: 01/15/2021 SPEC #: [id number] RECD: 01/15/21 11:12 STATUS: DIANA REBob #: [id number] DIONICIO: 01/15/21 00:[address]: Robe Leonard DEPT: SURGICAL PATHOLOGY RECD BY: Jus Diana ENTERED: 01/15/21 11:12 SP TYPE: Hernia OTHR DR: Dr. Que Parr MD Tissues: HERNIA Procedures: Surgery Specimen Level II HEADER OPERATION: Left inguinal hernia with mesh PRE-OP DIAGNOSIS: Inguinal hernia of left side TISSUE SUBMITTED: Hernia sac MICROSCOPIC DIAGNOSIS Soft tissue of inguinal region, excision: Hernia sac with fibrosis and minimal chronic inflammation. AM:addie 01/16/2021 MICROSCOPIC DESCRIPTION Slides are reviewed. GROSS DESCRIPTION Received in fixative is one container labeled with the patient's name and designated hernia sac. The specimen consists of three variable sized pieces of soft tissue mixed with adipose tissue measuring in aggregate 5 x 5 x 0.8 cm. No mass lesion is identified. Substance Abuse Technician sections are submitted in one cassette. / SJ:rg 01/15/21 TC:5 CPT: 99640
--- NOTE | 2021-01-15 08:39 | HP.PCM_ITS ---
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 Is patient in pain?: No Allergies Wasp sting Adverse Reaction (Severe, Uncoded 12/22/20 14:48) Nausea Medications Sertraline HCl [Zoloft] 50 mg PO DAILY 11/10/20 [History Confirmed 11/10/20] levothyroxine 50 mcg capsule 75 mcg PO DAILY cap 12/22/20 [History] PFS Medical History Gout (Acute) Hiatal hernia (Acute) Hx of prostatic malignancy (Acute) Primary cancer of head and neck (Acute) Prostate cancer (Acute) Skin cancer (Acute) peg tube removed (Acute) port removed (Acute) Hypertension (Chronic) Surgical History H/O left knee surgery (Acute) S/P cataract extraction (Acute) S/P percutaneous endoscopic gastrostomy (PEG) tube placement (Acute) S/P prostatectomy (Acute) S/P reconstruction of ligament of knee (Acute) Status post laparoscopic Alex fundoplication (Acute) s/p foreign body removal neck (Acute) Family History Mother Skin cancer Hypertension Brother Alzheimer disease Father Bleeding ulcer Social History (Updated 12/22/20 @ 15:[address] Robe Leonard MD) Smoking Status: Former smoker HPI HPI HPI: ОЛЕГ DRAKE, is a 80 M who presents to the office today for surgical consultation regarding what would appear to be a symptomatic left inguinal hernia. The patient is referred by Dr Que Parr and a written copy of my surgical consult and recommendations will be returned to him. The patient admits that he does not have a very good long-term memory. Just today however he had liquid nitrogen therapy to his face. He said that was quite uncomfortable. For some period of time he has had a bulge in left groin. It now is intermittently tender. Sometimes he says it is decompressed to a degree. He has evidence of a incision in the infraumbilical midline and in the right lower quadrant he does not recall the etiology to those but there is evidence that he has had remote prostatectomy. HPI HPI HPI: ОЛЕГ DRAKE, is a 80 M who presents to the office today for ROS General General: No weight change, appetite, fatigue, colon cancer, breast cancer or weakness HEENT HEENT: No difficulty swallowing, eye injury, eye surgery, swollen glands or hoarseness Endo Endocrine: No thyroid disease, diabetes mellitus, thyroid cancer, Hair loss, heat intolerance or cold intolerance Skin Skin: No rash or changing moles Breast Breast: No left breast lump, right breast lump, nipple discharge, breast pain, abnormal mammogram, abnormal US or breast enlargement Musc Musculoskeletal: No back problems, arthritis, rheumatoid arthritis, gout or joint pain Cardio Cardiovascular: No murmur, pacemaker, heart disease, atrial fibrillation, high blood pressure, heart attack, heart stent, palpitations, shortness of breat with exertion or chest pain Psych Psychiatric: No depression, anxiety or hearing voices Resp Respiratory: No shortness of breath, No sleep apnea, No cough, No COPD, No asthma, No emphysema, No wheezing Gastro Gastrointestinal: No abdominal pain, No nausea or vomiting, No diarrhea, Yes constipation, No blood in stool, No acid reflux, No hemorrhoids, No ulcers, No gallbladder problem, No black,tarry stools Craig Hematologic: No blood thinners, No blood disorders, No bleeding, No anemia, No blood clots Neuro Neurologic: No system reviewed and no additional complaints, except as docu, No as per HPI, No abnormal walking, No abnormal hearing, No abnormal movements, No abnormal speech, No behavioral changes, No burning sensations, No confusion, No seizure-like activity, No unsteadiness, No dizziness, No localized weakness, No frequent falls, No headache(s), No lack of coordination, No loss of vision, No memory loss, No numbness, No other visual disturbances, No radiating pain, No restless legs, No sensory deficit, No fainting, No tingling, No tremor(s), No weakness, No other Exam Const General: cooperative, comfortable, no acute distress Nutritional Appearance: average body habitus Orientation: alert, awake [facility] Head: other (Multiple areas of erythema on his face.) Eyes General: appearance normal, both eyes and all related structures Chest Breast Palpation: No nipple discharge Resp Auscultation: clear to auscultation bilaterally Other: Increased anterior posterior diameter of the chest. Diminished respiratory excursion. Cardio Rate: regular rate Rhythm: regular rhythm Heart Sounds: no murmurs GI Palpation: soft, no hepatosplenomegaly Other: Healed but scarred infraumbilical midline incision Other: Testicles are descended, atrophic, Obvious left inguinal hernia, significant mount of fibrofatty tissue, incompletely reducible, Solid right groin Neuro Other: Patient appears to be aware of his situation in place. He is aware as to why he is here. He is aware and purposely discussing his left inguinal hernia Extrem General: no calf tenderness Psych Affect: normal affect Assessment & Plan Problems 1. Inguinal hernia of left side without obstruction or gangrene K40.90 Plan Left inguinal hernia which is partially reducible but incompletely so. Nontender. Certainly at risk for symptom progression. It intermittently is causing him discomfort. I recommend to him a left inguinal herniorrhaphy. Because of his radical prostatectomy I would recommend we do that through an open approach. He has quit his tobacco use but has clinical evidence consistent with COPD. I would r ecommend an open approach under monitored anesthesia care and local anesthetic. I prescribed him a Casey type repair with mesh. He has had an opportunity to ask and have questions answered. I appreciate the opportunity of assisting with his surgical care. We will schedule procedure at his discretion. Copy: Dr Que Leonard M.D., F.A.C.S. Coding Level of Care Code 74636 Diagnoses Inguinal hernia of left side without obstruction or gangrene K40.90 I have re-examined the patient. There are no clinical changes since date of exam. Procedure Criteria Procedure Type: Elective COVID Risk Discussion: The surgeon/proceduralist and patient have discussed in detail the risk of exposure to and/or potential harm posed by the COVID-19 virus with having a surgery/procedure at this time versus the risk of delaying the surgery/procedure. It is not possible to know either the risk of delaying the surgery or procedure or chance of getting an infection with perfect accuracy, but a joint decision was made between the patient and the surgeon/proceduralist to proceed at this time with the scheduled surgery/procedure as indicated on the consent form.
--- NOTE | 2021-01-15 08:40 | DCINST_ITS ---
Discharge Diet: Light diet - advance as tolerated - if you have questions about your diet instructions, please talk to you doctor. Discharge Activity: May Not Drive - for 1 week or while taking narcotic pain medicine. May shower in (days): 1 Lifting Restrictions: 10 pounds Call your doctor if your incision/area has: Continuous Slow Oozing, Sudden Increased Bleeding, Increased Pain/ Swelling, Increased Redness, Foul Smelling Discharge Call your doctor if you observe: Fever of 101 or Higher Suture Line Care: Avoid Pulling/Pushing, Avoid Pinching/Bending Additional Dressing/Incision Instructions:: Change or remove dressing in 4 days. Leave steri-strips in place for 1 week. Allergies/Adverse Reactions: Allergies Wasp sting Adverse Reaction (Severe, Uncoded 01/15/21 08:30) Nausea Medications to take at Discharge Sertraline HCl [Zoloft] 50 mg PO DAILY 11/10/20 levothyroxine 50 mcg capsule 75 mcg PO DAILY cap 12/22/20 Primary Care Physician: Que Parr MD [Primary Care Provider] - Test Results: Test results from this visit will be discussed in further detail at your follow- up appointment, if applicable. Please Follow Up With: Robe Leonard MD - [phone] When: Call to make an appointment to be seen in about 10 days.
[2021-01-15] MEDS: Cefazolin 2 GM in 0.9% Normal Saline 100 ML IV (09:19)
[2021-01-15] MEDS: Lidocaine 1% (30 ml sdv) 30 ML Vial (10:28)
[2021-01-15] MEDS: Bupivacaine Mpf 0.5% 30 ML VIAL (10:28)
--- NOTE | 2021-01-15 10:28 | OP.PCM_ITS ---
Problem List (1) Inguinal hernia of left side without obstruction or gangrene Status: Acute Report of Operation Date of Procedure: 01/15/21 Pre-Operative Diagnosis: Incarcerated indirect left inguinal hernia Post-Operative Diagnosis: Same Surgery/Procedure Performed:: Inside left inguinal herniorrhaphy. Bard mesh preshaped Lot number [id number]. Reference #[id number] expiry date 02/27/2025 Description of Surgical Findings:: Timeout and informed consent was obtained. 80-year-old gentleman was taken to the operating placed on the table underwent monitored anesthesia care. Ancef 2 g were given intravenous preoperatively. The left groin was sterilely prepped and draped. 1% lidocaine mixed 50-50 with 0.5% Marcaine was used as a local anesthetic. A total of 30 cc was used. Local was instilled. Ileal nerve block performed. Sharp dissection carried down through the subtenons tissue as a transverse incision was created. The external oblique was identified. The external oblique was incised. Ilioinguinal nerve protected with the external oblique fascia. Circumferential control was obtained of the cord structures. Small amount of fibrofatty tissue was adherent to the cord structures and this was dissected free and submitted as part of the specimen. [place] drain was placed around the end cord structures and then blunt dissection was used to identify the hernia sac. This was dissected free to the internal ring. The sac was opened and there was adherent omentum to the sac sidewall. Using electrocautery I released the omentum in order to reduce it. I then twisted the sac and high ligated it doubly with 3-0 Vicryl. Portion of the sac was excised and submitted as a specimen. Dissection was performed overlying the pubic tubercle. I then reapproximated the transversalis fascia from the pubic tubercle to the internal ring with a running running 3-0 Ethibond. Good approximation was achieved. Some attenuated cremasterics fibers were transected with electrocautery. Then I placed a keyhole shaped mesh so as to nicely fit around the internal ring and it was secured to itself with 3-0 Ethibond. The tails were shortened and placed beneath the external oblique laterally. The mesh was secured at the pubic tubercle shelving edge of Poupart's and the inguinal ligament with interrupted 3-0 Ethibond. Good positioning was achieved. The external oblique was then approximated a running 3-0 Ethibond. Daniel's fascia approximated with interrupted 4-0 Monocryl. Skin edges approximated running subicular 4-0 Monocryl. Steri-Strips Telfa OpSite dressings applied. Sponge and instrument and needle counts were reported the surgeon to be correct. Specimens fibrofatty cord lipomatous material and hernia sac. Drains none. Blood loss minimal. Robe Leonard M.D., F.A.C.S. Type of Anesthesia:: Local MAC Anesthesiologist: Hubert De Santiago
== END 2021-01-15 12:16 | disposition home or self-care (01) ==
LOC: SDC 07:29 → AC 07:30
PROVIDERS: PCP Family Medicine; Referring Provider Surgery; Visit Provider Surgery
PROC: (CPT 49507; principal; 2021-01-15 09:10)
DX: K40.30 Unilateral inguinal hernia, with obstruction, without gangrene, not specified as recurrent (principal); I10 Essential (primary) hypertension; Z87.891 Personal history of nicotine dependence; Z79.899 Other long term (current) drug therapy; E07.9 Disorder of thyroid, unspecified; K21.9 Gastro-esophageal reflux disease without esophagitis
CPT/HCPCS: 00830; 49507; 36415; 80048; 84443; 85027; 88302; 93005; J7120; C1781; J2405

== ENCOUNTER → 2021-02-05 11:44 | Outpatient (CLI) | payer MEDICARE, SELFPAY ==
[2019-02-13 13:44] VITALS: BMI 27.5
[2021-01-15 08:34] VITALS: BMI 24.9
--- NOTE | 2021-02-05 12:13 | RAD_ITS ---
STUDY: X-RAY CHEST REASON FOR EXAM: Male, 80 years old. MALIGNANT NEOPLASM OF OROPHARYNX/PROSTATE TECHNIQUE: PA and lateral views of the chest. COMPARISON: Comparison is made with prior study dated 01/12/2021. FINDINGS: There is hyperinflation of the lungs consistent with chronic obstructive lung disease (COPD). Stable chronic pleural parenchymal changes at the left lung base. Stable calcified pleural plaques more prominent at the right lung base. Normal size heart. Normal mediastinum and stefani. Normal visualized pulmonary arteries. Normal visualized aortic arch and descending thoracic aorta. There are diffuse degenerative changes of the visualized thoracic spine. Normal visualized ribs, clavicles, and shoulders. There is no demonstrated abnormality of the visualized soft tissue structures of the upper abdomen. RAD/Chest PA and Lateral IMPRESSION: Stable examination. Electronically Signed: Neal River MD at 14:47 EDT , Service support ,
[2021-02-05 12:35] LABS: Absolute Lymphocyte Count 1.17 X10^3/uL (0.83-4.51); Absolute Neutrophil Count 5.2 X10^3/uL (2.0-7.7); Basophil# 0.06 X10^3/uL; Basophil% 0.8 % (0-1); Eosinophil# 0.14 X10^3/uL; Eosinophils% 1.9 % (0-5); Hematocrit 46.5 % (40-54); Hemoglobin 14.6 g/dL (13.0-16.5); Lymphocyte # 1.17 X10^3/ul (0.83-4.51); Mean Corp Hgb Conc 31.4 g/dL (32-36); Mean Corpuscular Hgb 28.8 pg (27.0-32.0); Mean Corpuscular Volume 91.7 fL (80-94); Mean Platelet Vol. 8.3 fl (6.2-12.0); Monocyte# 0.71 X10^3/uL; Monocyte% 9.7 % (0-10); NRBC Flagged by Analyzer 0 % (0-5); Neutrophil # 5.21 X10^3/uL (2.7-7.7); Neutrophil % 71.2 % (47-70); Platelet Count 245 K/mm3 (150-450); RBC Distribution Width CV 13.9 % (11.6-14.6); Red Blood Count 5.07 M/mm3 (4.6-6.2); White Blood Count 7.3 K/mm3 (4.4-11.0)
[2021-02-05 13:10] LABS: ALB/GLOB Ratio 1.1 RATIO (0.9-2.4); AST(SGOT) 19 U/L (15-37); Alanine Aminotransfer ALT/SGPT 19 U/L (16-61); Alkaline Phosphatase 67 U/L (45-117); Anion Gap 4 (5-15); BUN 18 mg/dL (7-18); BUN/Creat Ratio 13.2 RATIO (10-20); Calcium,Total 9.7 mg/dL (8.5-10.1); Chloride 104 mmol/L (98-107); Creatinine, Serum 1.36 mg/dL (0.70-1.30); EST Glomerular Filtration Rate 53 mL/min (>60); Est Glom Filt Rate - Afr Amer 64 mL/min (>60); Globulin 3.7 g/dL (2.2-4.2); Glucose 95 mg/dL (74-106); Potassium 4.3 mmol/L (3.5-5.1); Protein, Total 7.7 g/dL (6.4-8.2); Sodium Level 140 mmol/L (136-145)
[2021-02-05 20:00] LABS: Xtra Tube EP Lab EXTRA TUBE
== END ==
PROVIDERS: PCP Family Medicine; Referring Provider Internal Medicine Hematology & Oncology; Visit Provider Internal Medicine Hematology & Oncology
DX: C10.9 Malignant neoplasm of oropharynx, unspecified (principal); C61 Malignant neoplasm of prostate
CPT/HCPCS: 36415; 71046; 80053; 85025

== ENCOUNTER → 2021-02-10 15:33 | Outpatient (CLI) | payer MEDICARE, SELFPAY ==
[2019-02-13 13:44] VITALS: BMI 27.5
[2021-01-15 08:34] VITALS: BMI 24.9
[2021-02-10 18:09] LABS: Absolute Neutrophil Count 5.5 X10^3/uL (2.0-7.7); Basophil# 0.05 X10^3/uL; Basophil% 0.6 % (0-1); Eosinophil# 0.18 X10^3/uL; Eosinophils% 2.3 % (0-5); Hematocrit 45.2 % (40-54); Hemoglobin 14.4 g/dL (13.0-16.5); Lymphocyte % 15.4 % (19-41); Mean Corp Hgb Conc 31.9 g/dL (32-36); Mean Corpuscular Hgb 29.3 pg (27.0-32.0); Mean Corpuscular Volume 92.1 fL (80-94); Mean Platelet Vol. 8.9 fl (6.2-12.0); Monocyte# 0.88 X10^3/uL; Monocyte% 11.3 % (0-10); NRBC Flagged by Analyzer 0 % (0-5); Neutrophil # 5.46 X10^3/uL (2.7-7.7); Neutrophil % 70.1 % (47-70); Platelet Count 267 K/mm3 (150-450); RBC Distribution Width CV 14.1 % (11.6-14.6); RBC Distribution Width SD 48.1 fl (35.1-43.9); Red Blood Count 4.91 M/mm3 (4.6-6.2); White Blood Count 7.8 K/mm3 (4.4-11.0)
[2021-02-10 18:33] LABS: Vitamin B12 410 pg/mL (211-911)
[2021-02-10 18:40] LABS: AST(SGOT) 20 U/L (15-37); Alanine Aminotransfer ALT/SGPT 19 U/L (16-61); Albumin, Serum 3.8 g/dL (3.2-5.0); Alkaline Phosphatase 72 U/L (45-117); Anion Gap 5 (5-15); BUN 20 mg/dL (7-18); BUN/Creat Ratio 14.2 RATIO (10-20); Calcium,Total 9.8 mg/dL (8.5-10.1); Chloride 103 mmol/L (98-107); Creatinine, Serum 1.41 mg/dL (0.70-1.30); EST Glomerular Filtration Rate 51 mL/min (>60); Est Glom Filt Rate - Afr Amer 62 mL/min (>60); Globulin 3.9 g/dL (2.2-4.2); Glucose 105 mg/dL (74-106); PSA,Total- Diagnostic < 0.01 ng/mL (0.0-4.0); Potassium 4.3 mmol/L (3.5-5.1); Protein, Total 7.7 g/dL (6.4-8.2); Sodium Level 139 mmol/L (136-145); Thyroid Stim Hormone (TSH) 1.47 uIU/mL (0.358-3.74)
== END ==
PROVIDERS: PCP Family Medicine; Referring Provider Family Medicine; Visit Provider Family Medicine
DX: E03.9 Hypothyroidism, unspecified (principal); G62.9 Polyneuropathy, unspecified; Z85.46 Personal history of malignant neoplasm of prostate
CPT/HCPCS: 36415; 80053; 82607; 84153; 84207; 84425; 84439; 84443; 85025

== ENCOUNTER → 2021-02-18 14:38 | Outpatient (CLI) | payer MEDICARE, SELFPAY ==
[2019-02-13 13:44] VITALS: BMI 27.5
[2021-02-12 13:43] VITALS: BMI 25.4
[2021-02-23 19:46] LABS: VITAMIN B6 12.4 ug/L (5.3-46.7)
== END ==
PROVIDERS: PCP Family Medicine; Referring Provider Family Medicine; Visit Provider Family Medicine
DX: E03.9 Hypothyroidism, unspecified (principal); G62.9 Polyneuropathy, unspecified; Z85.46 Personal history of malignant neoplasm of prostate
CPT/HCPCS: 84207

== ENCOUNTER → 2022-06-14 | Outpatient (CLI) | payer MEDICARE, SELFPAY ==
[2022-06-02 12:07] VITALS: BMI 27.5
--- NOTE | 2022-06-14 15:21 | RAD_ITS ---
STUDY: X-RAY CHEST REASON FOR EXAM: Male, 82 years old. F/U HEAD AND NECK CANCER TECHNIQUE: PA and lateral views of the chest. COMPARISON: 02/05/2021 FINDINGS: There is hyperinflation of the lungs consistent with chronic obstructive lung disease (COPD). No change in left-sided pleural scarring. Normal size heart. Normal mediastinum and stefani. Normal visualized pulmonary arteries. Normal visualized aortic arch and descending thoracic aorta. Normal visualized thoracic spine. Normal visualized ribs, clavicles, and shoulders. There is no demonstrated abnormality of the visualized soft tissue structures of the upper abdomen. RAD/Chest PA and Lateral IMPRESSION: No change from 02/05/2021. Electronically Signed: Azeem Lange MD at 17:19 EDT ,
== END | disposition home or self-care (01) ==
LOC: RAD 15:21
PROVIDERS: PCP Family Medicine; Referring Provider Internal Medicine Hematology & Oncology; Visit Provider Internal Medicine Hematology & Oncology
DX: C10.9 Malignant neoplasm of oropharynx, unspecified (principal)
CPT/HCPCS: 71046

== ENCOUNTER → 2022-07-07 | Outpatient (CLI) | payer MEDICARE, SELFPAY ==
[2022-06-02 12:07] VITALS: BMI 27.5
--- NOTE | 2022-07-07 08:04 | AAAS_ITS ---
Reason For Study: AAA Aorta Measurements Aorta Doppler Measurements Proximal aorta measures2.12 x 2.14cm. in cross- Peak systolic flow velocities within the proximal sectional axis. aorta measure 57.8 cm/sec. Proximal aorta measures2.10cm. in longitudinal Peak systolic flow velocities within the mid aorta axis. measure 83.2 cm/sec. Mid aorta measures1.84 x 1.83cm. in cross- Peak systolic flow velocities within the distal sectional axis. aorta measure 83.2 cm/sec. Mid aorta measures1.85cm. in longitudinal axis. Distal aorta measures1.64 x 1.65cm. in cross- sectional axis. Distal aorta measures1.65cm. in longitudinal axis. Left Iliac Artery Left iliac artery measures 1.34 x 1.33 cm. in the cross-sectional axis. Left iliac artery measures 1.32 cm. in the longitudinal axis. Peak systolic velocity in the left iliac artery measures 63.2 cm/sec. Right Iliac Artery Right iliac artery measures 1.47 x 1.48 cm. in the cross-sectional axis. Right iliac artery measures 1.43 cm. in the longitudinal axis. Peak systolic velocity in the right iliac artery measures 50.6 cm/sec. Procedure Aorta IVC Iliac vasculature or bypass grafts [id number]. Exam performed in department. VL/AAA Screening Interpretation Summary Maximal aortic diameter proximally at 2.12 x 2.14 cm in diameter which is evan l Left common iliac measures 1.34 x 1.33 cm in diameter meeting criteria for ecta ailyn Right common iliac measures 1.47 x 1.48 cm in diameter meeting criteria for ect corbin Normal flow velocities are noted throughout the aorta and iliacs. Ordering Physician: Que Parr Referring Physician: Que Parr Performed By: Ernestina Cabral RVT
== END | disposition home or self-care (01) ==
LOC: CVS 08:03
PROVIDERS: PCP Family Medicine; Referring Provider Family Medicine; Visit Provider Family Medicine
DX: I71.40 Abdominal aortic aneurysm, without rupture, unspecified (principal)
CPT/HCPCS: 76706

== ENCOUNTER → 2022-09-17 | Outpatient (CLI) | payer MEDICARE, SELFPAY ==
[2022-06-02 12:07] VITALS: BMI 27.5
[2022-09-17 12:37] LABS: Absolute Lymphocyte Count 1.21 X10^3/uL (0.83-4.51); Basophil# 0.04 X10^3/uL; Basophil% 0.5 % (0-1); Eosinophil# 0.12 X10^3/uL; Eosinophils% 1.5 % (0-5); Hematocrit 45.2 % (40-54); Hemoglobin 14.8 g/dL (13.0-16.5); Lymphocyte # 1.21 X10^3/ul (0.83-4.51); Lymphocyte % 14.7 % (19-41); Mean Corp Hgb Conc 32.7 g/dL (32-36); Mean Corpuscular Hgb 30.5 pg (27.0-32.0); Mean Corpuscular Volume 93.2 fL (80-94); Mean Platelet Vol. 9.5 fl (6.2-12.0); Monocyte# 0.85 X10^3/uL; Monocyte% 10.3 % (0-10); NRBC Flagged by Analyzer 0 % (0-5); Neutrophil # 5.95 X10^3/uL (2.7-7.7); Neutrophil % 72.4 % (47-70); Platelet Count 282 K/mm3 (150-450); RBC Distribution Width CV 13.5 % (11.6-14.6); RBC Distribution Width SD 46.4 fl (35.1-43.9); Red Blood Count 4.85 M/mm3 (4.6-6.2); White Blood Count 8.2 K/mm3 (4.4-11.0)
[2022-09-17 13:03] LABS: ALB/GLOB Ratio 1.1 RATIO (0.9-2.4); AST(SGOT) 21 U/L (15-37); Alanine Aminotransfer ALT/SGPT 22 U/L (16-61); Albumin, Serum 3.7 g/dL (3.2-5.0); Alkaline Phosphatase 72 U/L (45-117); Anion Gap 7 (5-15); BUN 17 mg/dL (7-18); BUN/Creat Ratio 10.7 RATIO (10-20); Calcium,Total 9.8 mg/dL (8.5-10.1); Chloride 102 mmol/L (98-107); Creatinine, Serum 1.59 mg/dL (0.70-1.30); EST Glomerular Filtration Rate 44 mL/min (>60); Est Glom Filt Rate - Afr Amer 54 mL/min (>60); Globulin 3.3 g/dL (2.2-4.2); Glucose 112 mg/dL (74-106); PSA,Total- Diagnostic < 0.01 ng/mL (0.0-4.0); Potassium 4.3 mmol/L (3.5-5.1); Sodium Level 139 mmol/L (136-145); Thyroid Stim Hormone (TSH) 2.29 uIU/mL (0.358-3.74)
[2022-09-17 18:07] LABS: Hemoglobin A1c 5.8 % (3.8-5.6)
== END | disposition home or self-care (01) ==
LOC: MFPLAB 10:25
PROVIDERS: PCP Family Medicine; Referring Provider Family Medicine; Visit Provider Family Medicine
DX: R73.09 Other abnormal glucose (principal); E03.9 Hypothyroidism, unspecified; Z85.46 Personal history of malignant neoplasm of prostate
CPT/HCPCS: 36415; 80053; 83036; 84153; 84439; 84443; 85025

== ENCOUNTER → 2023-01-07 | Outpatient (CLI) | payer MEDICARE, SELFPAY ==
[2022-06-02 12:07] VITALS: BMI 27.5
[2023-01-07 10:23] LABS: Absolute Lymphocyte Count 1.11 X10^3/uL (0.83-4.51); Absolute Neutrophil Count 5.5 X10^3/uL (2.0-7.7); Basophil# 0.04 X10^3/uL; Basophil% 0.5 % (0-1); Eosinophil# 0.15 X10^3/uL; Hematocrit 46.7 % (40-54); Hemoglobin 15.1 g/dL (13.0-16.5); Lymphocyte # 1.11 X10^3/ul (0.83-4.51); Lymphocyte % 14.7 % (19-41); Mean Corp Hgb Conc 32.3 g/dL (32-36); Mean Corpuscular Hgb 30.1 pg (27.0-32.0); Mean Corpuscular Volume 93.2 fL (80-94); Mean Platelet Vol. 8.8 fl (6.2-12.0); Monocyte# 0.71 X10^3/uL; Monocyte% 9.4 % (0-10); NRBC Flagged by Analyzer 0 % (0-5); Neutrophil # 5.52 X10^3/uL (2.7-7.7); Platelet Count 270 K/mm3 (150-450); RBC Distribution Width CV 13.5 % (11.6-14.6); RBC Distribution Width SD 46.1 fl (35.1-43.9); Red Blood Count 5.01 M/mm3 (4.6-6.2); White Blood Count 7.6 K/mm3 (4.4-11.0)
[2023-01-07 10:40] LABS: Hemoglobin A1c 5.6 % (3.8-5.6)
[2023-01-07 10:52] LABS: PTHIN 53.2 pg/mL (18.4-80.1)
[2023-01-07 10:56] LABS: Vitamin B12 375 pg/mL (211-911)
[2023-01-07 11:02] LABS: AST(SGOT) 24 U/L (15-37); Alanine Aminotransfer ALT/SGPT 19 U/L (16-61); Albumin, Serum 3.7 g/dL (3.2-5.0); Alkaline Phosphatase 70 U/L (45-117); Anion Gap 8 (5-15); BUN 18 mg/dL (7-18); BUN/Creat Ratio 11.9 RATIO (10-20); Calcium,Total 9.6 mg/dL (8.5-10.1); Chloride 105 mmol/L (98-107); Creatinine, Serum 1.51 mg/dL (0.70-1.30); EST Glomerular Filtration Rate 47 mL/min (>60); Est Glom Filt Rate - Afr Amer 57 mL/min (>60); Globulin 3.6 g/dL (2.2-4.2); Glucose 98 mg/dL (74-106); Phosphorus 2.4 mg/dL (2.5-4.9); Protein, Total 7.3 g/dL (6.4-8.2); Sodium Level 140 mmol/L (136-145); T4 Free Direct 1.01 ng/dL (0.76-1.46); Thyroid Stim Hormone (TSH) 2.16 uIU/mL (0.358-3.74)
== END | disposition home or self-care (01) ==
LOC: MFPLAB 09:16
PROVIDERS: PCP Family Medicine; Referring Provider Family Medicine; Visit Provider Family Medicine
DX: F03.90 Unspecified dementia, unspecified severity, without behavioral disturbance, psychotic disturbance, mood disturbance, and anxiety (principal); R73.02 Impaired glucose tolerance (oral); E03.9 Hypothyroidism, unspecified
CPT/HCPCS: 36415; 80053; 82607; 83036; 83970; 84100; 84439; 84443; 85025

== ENCOUNTER → 2024-01-03 | Outpatient (CLI) | payer MEDICARE, SELFPAY ==
[2022-06-02 12:07] VITALS: BMI 27.5
--- NOTE | 2024-01-03 11:30 | PET_ITS ---
EXAMINATION: FDG PET/CT ? INDICATIONS: 83-year-old male with a history of primary head/neck carcinoma presenting for restaging examination and evaluation of pulmonary nodularity. ? COMPARISON EXAMINATION: FDG-PET CT study report dated 08/07/2018. ? INDEX LESION SIZE SUV INTERPRETATION Left lung, left lower lobe 7.3 cm 2.4 Fulfills borderline quantitative criteria for viable neoplasm ? Left adrenal gland ? 3.0 max Fulfills quantitative criteria for viable neoplasm ? Left abdominal-pelvic mesentery, abdominal-pelvic wall 7.2 cm, largest 4.8 max Fulfills quantitative criteria for viable neoplasm with single point technique. ? TECHNIQUE: Following the intravenous administration of 13.17 mCi of F-18 deoxyglucose via the right hand, multiplanar image acquisitions of the head, neck, chest, abdomen and pelvis to the level of the midthigh, obtained at one-hour post radiopharmaceutical administration contemporaneously interpreted with the current CT of the chest, abdomen and pelvis dated 01/03/2024 and prior FDG-PET CT study report dated 08/07/2018 via coregistration reveal: ? SERUM GLUCOSE LEVEL:? 111 mg/dL? HEIGHT:?? 71 inches WEIGHT:?? 167 pounds ? FINDINGS: ? HEAD/NECK:? There is no evidence of abnormal increased glucose metabolism in the pharyngeal mucosal space, parapharyngeal space, oropharynx, bilateral-lateral and anterior neck, hypopharynx and distribution of the larynx. Symmetric radiotracer is defined in the bilateral strap musculature most consistent with muscle tension artifact. The visualized portion of the cerebral cortical-subcortical structures demonstrate symmetric and preserved glucose metabolism. ? CHEST: Facilitated FDG concentration is defined in the left mid lung zone, left lower lobe with central photopenia. The calculated maximum standard uptake value is 2.4. The maximal axial diameter of the metabolic, morphologic abnormality is 7.3 cm. ? CT of the chest demonstrates the following anatomic characteristics: Atherosclerotic calcification is defined in the thoracic aorta without evidence of dilatation, aneurysm formation. Coronary artery calcification is observed. Additional parenchymal densities defined in the bilateral hemithorax are nonglucose avid. Severe emphysematous changes are defined in the bilateral upper-lower lung zones. Bleb formation is noted in the right and left upper and lower hemithorax. ? ABDOMEN/PELVIS:? Enhanced radiopharmaceutical concentration is defined in the left upper abdomen associated with a normal-size left adrenal gland. The calculated standard uptake value is 3.0. There is facilitated FDG concentration noted in the left lower abdominal and upper pelvic mesenteric cavity-abdominal wall. The calculated standard uptake value is 4.8. The maximal axial diameter of the metabolic, morphologic abnormality is 7.2 cm. Normal physiologic distribution of the radiopharmaceutical is identified in the hepatic (3.4) and splenic parenchyma, both renal units, urinary bladder, and visualized intestinal tract. Diffuse intestinal tract is identified in all four quadrants of the abdominal-pelvic mesentery. ? CT of the abdomen and pelvis is remarkable for the following: Atherosclerotic calcification is defined in the abdominal aorta without evidence of dilatation, aneurysm formation. Abdominal-pelvic arterial calcification is observed. Colonic diverticulosis is noted without evidence of diverticulitis. Right and left inguinal soft tissue densities demonstrate no evidence of increased tracer uptake. ? SKELETAL:? There is no evidence of quantitatively significant enhanced glucose metabolism on meticulous inspection of the appendicular and axial skeletal structures. ? Degenerative changes defined in the thoracic and lumbar spine demonstrate no evidence of increased glucose metabolism. There are no sclerotic, mixed sclerotic-lytic, or primarily lytic changes defined in the axial skeletal structures with evidence of increased FDG uptake. ? PET/PET/CT Tumor Base -Thigh Init IMPRESSION: 1. ABNORMAL EXAMINATION INDICATIVE OF MALIGNANT-VIABLE NEOPLASM. 2. Increased radiopharmaceutical concentration defined in the left adrenal gland fulfills quantitative criteria for viable neoplasm. Correlation with Magnetic Resonance Imaging and/or CT of the abdomen and pelvis utilizing adrenal gland protocol is recommended. 3. Facilitated uptake noted in the left lower abdominal and upper pelvic mesentery adjacent to the abdominal-pelvic wall fulfills quantitative criteria for viable neoplasm with single point technique. 4. Accentuated glucose identified in the left lung field, left lower lobe fulfills borderline quantitative criteria for malignant transformation. Electronic Signature Azeem Sultana D.O. Accurate Quantification of SUVs for this report are calculated using the exclusive [employer]. ([place]. Patent No. [phone] [phone] [phone] patent [phone] [id number] [phone]). Standardization and correction of the FDG SUV metric via [employer] technology allow for vendor non-specific objective quantitative examination comparison and optimization of the sensitivity and specificity of the FDG PET-CT examination. . [email or web address] Electronically Signed: Azeem Sultana DO at 8:16 EDT ,
== END | disposition home or self-care (01) ==
PROVIDERS: PCP Student in an Organized Health Care Education/Training Program; Referring Provider Internal Medicine Critical Care Medicine; Visit Provider Internal Medicine Critical Care Medicine
DX: R91.8 Other nonspecific abnormal finding of lung field (principal)
CPT/HCPCS: 78815; 94060; 94726; 94729; A9552

== ENCOUNTER 2025-03-30 13:08 | Emergency (ER) | payer MEDICARE, SELFPAY ==
[2022-06-02 12:07] VITALS: BMI 27.5
[2025-03-30 13:09] VITALS: BP 156/80; PULSE 83; RESP 15; TEMP 36.3; O2SAT 95; BMI 26.7
--- NOTE | 2025-03-30 13:16 | RAD_ITS ---
PROCEDURE: ELBOW MIN 3 VIEWS 03/30/2025 REASON FOR EXAM: PAIN TECHNIQUE: ELBOW MIN 3 VIEWS COMPARISON: None RAD/Elbow min 3 Views IMPRESSION: No acute fracture or dislocations. Mild degenerative changes. No large joint effusion. Moderate diffuse soft tissue edema. No radiographic foreign body. Reading Location: [id number]
--- NOTE | 2025-03-30 14:00 | RAD_ITS ---
PROCEDURE: HUMERUS MIN 2 VIEWS 03/30/2025 REASON FOR EXAM: PAIN TECHNIQUE: HUMERUS MIN 2 VIEWS COMPARISON: none RAD/Humerus min 2 Views IMPRESSION: No acute fracture or dislocations. Mild degenerative changes. No large joint effusion. Moderate diffuse soft tissue edema. No radiographic foreign body. Reading Location: [id number]
--- NOTE | 2025-03-30 15:01 | EX.ED.UPPERE ---
HPI History of Present Illness Chief Complaint: Upper Extremity Injury Detail of Chief Complaint: Swelling discoloration left arm and elbow Informant: patient and family Onset/Context/Timing Onset: Today Context: Sudden Onset Timing: Continuous Location: Patient presents because of bruising to his left arm Current Severity: Moderate Maximum Severity: Moderate Worsened by: Nothing Relieved by: Not applicable Associated Symptoms Associated Symptoms: Negative for Parasthesia, Weakness or Loss of Funtion Narrative Narrative: Patient is an 85-year-old [id number] male. The other day according to his son he was stacking wood. He is not on any antithrombotic or anticoagulant. He is presently on ferrous sulfate, levothyroxine and sertraline. He denies pain. He denies paresthesia, anesthesia Medicus. He denies cardiac or respiratory symptoms. Son also noted that he had a tick mid left calf that he removed this morning. There is redness around the tick bite. Patient denies fever, chills night sweats. Patient denies any warmth to his left upper extremity or left calf. Prior similar symptoms: No Recent Illness/Hospitalization: No [facility] Medical History peg tube removed port removed Primary cancer of head and neck Skin cancer Hiatal hernia Prostate cancer Hx of prostatic malignancy Hypertension Gout Home Medications ?Medication ?Instructions ?Recorded ?Last Taken ?Type sertraline 50 mg tablet 50 mg PO DAILY 11/10/20 01/15/21 05:30 History levothyroxine 50 mcg capsule 75 mcg PO DAILY 12/22/20 01/15/21 05:30 History ferrous sulfate 325 mg (65 mg 325 mg PO DAILY 12/21/23 Unknown History iron) tablet (Feosol) Allergy/AdvReac Type Severity Reaction Status Date / Time venom-wasp (wasp sting) AdvReac Severe Nausea Verified 03/30/25 13:11 Family History Mother Skin cancer Hypertension Brother Alzheimer disease Father Bleeding ulcer Surgical History S/P inguinal hernia repair S/P percutaneous endoscopic gastrostomy (PEG) tube placement s/p foreign body removal neck S/P cataract extraction S/P prostatectomy S/P reconstruction of ligament of knee Status post laparoscopic Alex fundoplication H/O left knee surgery Social History household members: spouse Smoking Status: Former smoker how long ago did patient quit smoking: quite 30 years ago second hand exposure: Yes () substance use type: does not use seatbelt use: never do you feel safe at home: Yes ROS ROS ED Constitutional Constitutional ED: Denies chills, fever(s), subjective, sweats or weight loss Cardiovascular Cardiovascular: Reports chest pain and palpitations Respiratory/Chest Respiratory/Chest: Reports cough, dyspnea and dyspnea on exertion Integumentary Reports rash and other Details: Bruising/ecchymosis left upper extremity ; Denies abscess or Abrasions Neurologic Neurologic: Denies paresthesias or weakness Hematologic/Lymphatic Hematologic/Lymphatic: Denies easy bleeding or easy bruising EXAM Physical Exam Const Vital Signs: 03/30/25 13:09 Temperature 97.3 F L Temperature Source Temporal Pulse Rate 83 Respiratory Rate 15 Blood Pressure 156/80 H Blood Pressure Mean 105 Pulse Ox 95 Oxygen Delivery Method Room Air Positive well nourished and well developed General Appearance ED: well developed and NAD HEENT Reports moist mucous membranes normocephalic and atraumatic Eyes PERRL and EOMs intact bilaterally Eyes Narrative: No scleral icterus. No conjunctival pallor. Resp normal respiratory effort and clear to auscultation bilaterally Cardio regular rate and regular rhythm Extremity full ROM; Negative for normal to inspection Extremity Narrative: Patient has significant swelling ecchymosis of the left arm. There is no pain ovation of the proximal humerus, lateral medial epicondyle, olecranon process or radial head. There is no pain the patient over the shaft of the radius or ulna. Radial pulses palpable. Axillary, median, radial and ulnar function intact. There is no epitrochlear or axillary lymphadenopathy. There is evidence of a tick bite mid calf. There is erythema the size of a silver dollar. There is no warmth, induration, fluctuance or lymphangitis. There is no popliteal lymphadenopathy. Neuro oriented x3, CN's II-XII intact bilaterally, moves all extremities, no focal motor deficits and no sensory deficits noted Sensorium / Orientation: alert Psych mental status grossly normal Skin General Skin Exam: Negative for petechiae Lesions: no lesions Rashes: No no rashes Trauma: no lacerations or abrasions MDM MDM MDM Narrative Medical decision making narrative: Having the patient flex at the elbow results in prominence of the bicep muscle superior to where 1 would expect and compared to his on affected extremity. Findings are consistent with rupture of the distal bicep tendon. X-rays were obtained of the humerus and elbow per nurse protocol. These films were reviewed by me. They were documented in the radiology portion of the EMR. Will obtain Lyme test with reflex since he was bit by tick. The tick had been there for some time. Radiography Chest X-Ray - ED: 2 View (2 view x-ray of the humerus reveals soft tissue swelling. There is no fracture, subluxation dislocation.) and Read by ED Physician (Three-view x-ray of the elbow was obtained. There is no fracture, subluxation dislocation. There is no anterior posterior fat pad noted.) Discharge Plan Triage Chief Complaint: Upper Extremity Injury Other Complaint: Edema ED Provider: Fredi Corey Dx/Rx/DC Orders Clinical Impression: Rupture of left distal biceps tendon, Hypothyroidism, Tick bite of left lower leg, Elevated blood-pressure reading without diagnosis of hypertension Instructions: ED Hypertension, To Be Confirmed, ED Tick Bite, No Abx Tx, ED Bicep Tendon Rupture Prescriptions: No Action levothyroxine 50 mcg capsule 75 mcg PO DAILY ferrous sulfate [Feosol] 325 mg (65 mg iron) tablet 325 mg PO DAILY sertraline 50 MG tablet 50 mg PO DAILY Primary Care Provider: Samira Cardenas Referrals: Samira Cardenas MD [Primary Care Provider] - 1-2 Weeks Lior Millan MD [Med Staff - Active Staff] - 5-7 Days Activity Restrictions/Additional Instructions: Your blood pressure was elevated in the emergency department you should follow-up with your doctor for recheck within the next 1 [address] Lior Millan's office on Tuesday to be seen within the next 5 to 7 days Apply ice to your left arm 6 times a day If your Lyme titer is positive you will be contacted and started on antibiotics Print Language: Togolese Disposition Disposition: Home, Self Care
--- OUTSIDE RECORDS SUMMARY | 2025-03-30 15:07 | XMS RPT_ITS | CCD ---
Author Organization [facility] Care Team Providers Care Marketing Producer Name Role Phone Dr. Que Parr Primary Care Provider [phone] Dr. Que Parr Referring Provider Dr. Tequila Cleary Attending Provider Dr. Robe Leonard Attending Provider Dr. Que Parr Primary Care Provider Dr. Que Parr Referring Provider Dr. Tequila Cleary Attending Provider Dr. Robe Leonard Attending Provider Dr. Houston Esparza Attending Provider Dr. Que Parr Primary Care Provider [phone] Dr. Que Parr Referring Provider Dr. Rex Serra Attending Provider Kacey Edward Primary Care Unavailable Rex Serra Referring Unavailable Ayad Merrill Attending Unavailable Rex Serra Attending Unavailable Kacey Edward Primary Care Unavailable Rex Serra Attending Unavailable Rex Serra Referring Unavailable Kacey Edward Primary Care Unavailable Kacey Edward Referring Unavailable Tequila Cleary Attending Unavailable Kacey Edward Primary Care Unavailable Ayad Merrill Attending Unavailable Que Parr Referring Unavailable Que Parr Referring Unavailable Rex Serra Attending Unavailable Que Parr Primary Care Unavailable KACEY EDWARD MD Attending Unavailable KACEY EDWARD MD Admitting Unavailable KACEY EDWARD MD Primary Care Unavailable KACEY EDWARD MD Admitting Unavailable KACEY EDWARD MD Primary Care Unavailable KACEY EDWARD MD Attending Unavailable KACEY EDWARD MD Primary Care Unavailable KACEY EDWARD MD Attending Unavailable KACEY EDWARD MD Admitting Unavailable KACEY EDWARD MD Primary Care Unavailable KACEY EDWARD MD Attending Unavailable KACEY EDWARD MD Admitting Unavailable JIGNESH, CLYDE PAC Referring Unavailable KACEY EDWARD MD Attending Unavailable KACEY EDWARD MD Admitting Unavailable KACEY EDWARD MD Primary Care Unavailable KACEY EDWARD MD Attending Unavailable KACEY EDWARD MD Admitting Unavailable KACEY EDWARD MD Primary Care Unavailable KACEY EDWARD MD Admitting Unavailable KACEY EDWARD MD Primary Care Unavailable KACEY EDWARD MD Attending Unavailable JIGNESH, CLYDE PA%C Admitting Unavailable JIGNESH, CLYDE PA%C Primary Care Unavailable JIGNESH, CLYDE PA%C Attending Unavailable Allergies Allergy Classification Reported Allergen(s) Allergy Type Date of Onset Reaction(s) Facility (4 sources) venom-wasp Propensity to adverse reactions 2 [facility] (1 source) venom-wasp Drug allergy (disorder) 4 [facility] Repository Medications Current Medications Medication Drug Class(es) Dates Sig (Normalized) Sig (Original) ferrous sulfate 325 mg oral tablet (1 source) Start: 12-21-2023 take 1 tablet by mouth once daily Ferrous Sulfate (Feosol) 325 mg (65 mg iron) tablet Active 325 MG PO DAILY December 21, 2023 12:00am folic acid 1 mg oral tablet (1 source) Start: 12-21-2023 take 1 mg by mouth once daily Folic Acid Active 1 MG PO daily December 21, 2023 12:00am levothyroxine sodium 0.05 mg oral capsule (10 sources) l-Thyroxine Start: 12-22-2020 take 75 ug by mouth once daily Levothyroxine Active 75 MCG PO DAILY December 22, 2020 2:48pm Start: 06-06-2019 End: 12-22-2020 take 1 capsule by mouth once daily levothyroxine 50 mcg capsule Discontinued 50 MCG PO DAILY June 06, 2019 12:00am December 22, 2020 2:48pm lisinopril 10 mg oral tablet (1 source) Angiotensin Converting Enzyme Inhibitor Start: 12-21-2023 take 10 mg by mouth once daily Lisinopril Active 10 MG PO daily December 21, 2023 12:00am sertraline 50 mg oral tablet (5 sources) Serotonin Reuptake Inhibitor Start: 11-10-2020 take 50 mg by mouth once daily Sertraline Active 50 MG PO DAILY November 10, 2020 1:00am Completed/Discontinued Medications Medication Drug Class(es) Dates Sig (Normalized) Sig (Original) acetaminophen 325 mg / HYDROcodone bitartrate 5 mg oral tablet (5 sources) Opioid Agonist Start: 01-15-2021 End: 01-17-2021 take 1 tablet by mouth every six hours as needed Hydrocodone-Acetam inophen Discontinued 1 TABLET PO EVERY 6 HOURS NEEDED 6 2 January 15, 2021 January 17, 2021 12:03am warfarin sodium 2 mg oral tablet (1 source) Vitamin K Antagonist Start: 12-21-2023 End: 12-21-2023 take 2 mg by mouth once daily Warfarin Discontinued 2 MG PO daily December 21, 2023 12:00am December 21, 2023 1:24pm Problems Active Problems Problem Classification Problem Date Documented Da te Episodic/Chronic Abdominal hernia (5 sources) Left inguinal hernia ; Translations: [Unilateral inguinal hernia, without obstruction or gangrene, not specified as recurrent] 12-22-2020 Episodic Administrative/social admission (8 sources) Education and/or schooling finding; Translations: [Problems related to education and literacy, unspecified] Episodic Cancer of head and neck (12 sources) Malignant tumor of oropharynx; Translations: [Malignant neoplasm of oropharynx, unspecified] Chronic Essential hypertension (1 source) Essential (primary) hypertension; Translations: [Essential (primary) hypertension] Onset: 12-28-2024 Chronic Fluid and electrolyte disorders (8 sources) Dehydration; Translations: [Dehydration] Episodic Nutritional deficiencies (4 sources) Deficiency of other specified B group vitamins; Translations: [Deficiency of other specified B group vitamins] Onset: 02-13-2024 Episodic Other hereditary and degenerative nervous system conditions (1 source) Mild cognitive impairment, so stated; Translations: [Mild cognitive impairment of uncertain or unknown etiology] Onset: 02-13-2024 Chronic Other lower respiratory disease (1 source) Hemoptysis; Translations: [Hemoptysis] 12-21-2023 Episodic Other lower respiratory disease (1 source) Lung mass; Translations: [Other nonspecific abnormal finding of lung field] 12-21-2023 Episodic Other lower respiratory disease (2 sources) Other nonspecific abnormal finding of lung field; Translations: [Swelling, mass, or lump in chest] Onset: 05-02-2024 12-21-2023 Episodic Thyroid disorders (13 sources) Hypothyroidism; Translations: [Hypothyroidism, unspecified] Onset: 04-20-2024 Chronic Past or Other Problems Problem Classification Problem Date Documented Date Episodic/Chronic Other lower respiratory disease (6 sources) Hemoptysis; Translations: [Other hemoptysis] Onset: 12-21-2023 12-21-2023 Episodic Other screening for suspected conditions (not mental disorders or infectious disease) (4 sources) Abnormal results of function studies of other organs and systems; Translations: [Encounter for screening for cardiovascular disorders] Onset: 01-31-2024 Episodic Pulmonary heart disease (1 source) Other pulmonary embolism without acute cor pulmonale; Translations: [Other pulmonary embolism without acute cor pulmonale] Onset: 02-13-2024 Episodic Unclassified (5 sources) peg tube removed 05-01-2022 Unclassified (5 sources) port removed 05-01-2022 Unclassified (5 sources) s/p foreign body removal neck 05-01-2022 Results Test Name Value Interpretation Reference Range Facility CBC (NO DIFF)on 12-28-2024 CBC panel Auto (Bld) Normal [facility] Comment on above: Result Comment: CBC( WITHOUT DIFFERENTIAL) Performed By: #### 2 [id number] #### [facility],[address] [place] [address] Erythrocyte distribution width (RBC) [Ratio] 14.2 % Normal 12.0 - 15.6 [facility] Comment on above: Performed By: #### 2 57799 #### [facility],[address] [place], [place] [id number] Hematocrit (Bld) [Volume fraction] 43.8 % Normal 40.0 - 52.0 [facility] Comment on above: Performed By: #### 2 65656 #### [facility],[address] [place] [address] 94166 Hemoglobin (Bld) [Mass/Vol] 15.4 g/dL Normal 13.0 - 17.5 [facility] Comment on above: Performed By: #### 2 76844 #### [facility],[address] [place] [address] 70043 MCH (RBC) [Entitic mass] 32 pg Normal 27 - 33 [facility] Comment on above: Performed By: #### 2 14636 #### [facility],[address] [place] [address] 05478 MCHC 35 X10 3 Normal 32 - 36 [facility] Comment on above: Performed By: #### 2 15165 #### [facility],[address] [place] [address] 31612 MCV (RBC) [Entitic vol] 90 fL Normal 81 - 98 [facility] Comment on above: Performed By: #### 2 29711 #### [facility],[address] [place] [address] 88639 PLATELET 324 x10EE3/UL Normal 150 - 450 [facility] Comment on above: Performed By: #### 2 65231 #### [facility],[address] [place] [address] 57810 Platelet mean volume (Bld) [Entitic vol] 8.0 fL Normal 6.4 - 10.5 [facility] Comment on above: Performed By: #### 2 67359 #### [facility],[address] [place] [address] 06521 RBC 4.84 x 10EE6/UL Normal 4.50 - 6.00 [facility] Comment on above: Performed By: #### 2 36788 #### [facility],[address] [place] [address] 15143 WBC 8.4 x 10EE3/UL Normal 4.5 - 10.8 [facility] Comment on above: Performed By: #### 2 13507 #### [facility],[address] [place] [address] 33369 CMP with eGFRon 12-28-2024 AGE 84 years Normal [facility] Comment on above: Performed By: #### 2 35088 #### [facility],[address] [place] [address] 97915 Albumin [Mass/Vol] 3.8 g/dL Normal 3.4 - 5.0 [facility] Comment on above: Performed By: #### 2 65974 #### [facility],[address] [place] [address] 94718 Albumin/Globulin [Mass ratio] 1.0 {ratio} Normal 0.9 - 1.6 [facility] Comment on above: Performed By: #### 2 24409 #### [facility],[address] [place] [address] 73904 ALK PHOS 88 U/L Normal 46 - 116 [facility] Comment on above: Performed By: #### 2 61827 #### [facility],[address] [place] [address] 46769 ALT [Catalytic activity/Vol] 15 U/L Low 16 - 63 [facility] Comment on above: Performed By: #### 2 21395 #### [facility],[address] [place] [address] 73591 Anion gap [Moles/Vol] 8 mmol/L Low 10 - 20 [facility] Comment on above: Performed By: #### 2 54463 #### [facility],[address] [place] [address] 81753 AST [Catalytic activity/Vol] 20 U/L Normal 15 - 37 [facility] Comment on above: Performed By: #### 2 52467 #### [facility],[address] [place] [address] 39293 B/C RATIO 17 ratio Normal 0 - 30 [facility] Comment on above: Performed By: #### 2 00360 #### [facility],[address] [place] [address] 96802 Bilirubin [Mass/Vol] 0.9 mg/dL Normal 0.2 - 1.0 [facility] Comment on above: Performed By: #### 2 46361 #### [facility],[address] [place] [address] 11513 Calcium [Mass/Vol] 9.7 mg/dL Normal 8.5 - 10.1 [facility] Comment on above: Performed By: #### 2 58906 #### [facility],[address] [place] [address] 44052 Chloride [Moles/Vol] 101 mmol/L Normal 98 - 107 [facility] Comment on above: Performed By: #### 2 55899 #### [facility],[address] [place] [address] 73604 CMP with eGFR Normal [facility] Comment on above: Result Comment: COMP REHENSIVE METABOLIC PANEL Performed By: #### 2 49431 #### [facility],[address] [place] [address] 31846 CO2 [Moles/Vol] 32.3 mmol/L High 21.0 - 32.0 [facility] Comment on above: Performed By: #### 2 02543 #### [facility],[address] [place] [address] 14829 Creatinine [Mass/Vol] 1.32 mg/dL High 0.70 - 1.30 [facility] Comment on above: Performed By: #### 2 44539 #### [facility],[address] [place] [address] 50085 eGFR 51 ML/MINUTE Low 60 - 999 [facility] Comment on above: Performed By: #### 2 35713 #### [facility],[address] [place] [address] 75220 GFR/1.73 sq M.predicted among non-blacks MDRD (S/P/Bld) [Vol rate/Area] mL/min/{1.73_m2} Normal 60 - 999 [facility] Comment on above: Result Comment: ACCO RDING TO THE NATIONAL KIDNEY DISEASE EDUCATION PROGRAM(NKDE), A NORMAL eGFR IS A VALUE GREATER THAN OR EQUAL TO 60 ML/MIN/1.73 SQ METERS. CHRONIC KIDNEY DISEASE: <60mL/MIN/1.73 SQ METERS KIDNEY FAILURE: <15mL/MIN/1.73 SQ METERS THIS TEST SHOULD ONLY BE USED FOR PATIENTS 18 YEARS OF AGE AND OLDER. Performed By: #### 2 04497 #### [facility],[address] [place] [address] 67411 Globulin (S) [Mass/Vol] 3.7 g/dL Normal 1.5 - 3.8 [facility] Comment on above: Performed By: #### 2 18309 #### [facility],[address] [place] [address] 75682 Glucose [Mass/Vol] 102 mg/dL Normal 74 - 106 [facility] Comment on above: Performed By: #### 2 48880 #### [facility],[address] [place] [address] 10070 Potassium [Moles/Vol] 4.4 mmol/L Normal 3.5 - 5.1 [facility] Comment on above: Performed By: #### 2 11426 #### [facility],[address] [place] [address] 99816 Protein [Mass/Vol] 7.5 g/dL Normal 6.4 - 8.2 [facility] Comment on above: Performed By: #### 2 67500 #### [facility],[address] [place] [address] 38961 Sodium [Moles/Vol] 137 mmol/L Normal 136 - 145 [facility] Comment on above: Performed By: #### 2 32759 #### [facility],[address] [place] [address] 47800 Urea nitrogen [Mass/Vol] 22 mg/dL High 7 - 18 [facility] Comment on above: Performed By: #### 2 00871 #### [facility],[address] [place] [address] 80420 FOLATESon 12-28-2024 FOLATES 90.5 ng/ml High 8.6 - 58.9 [facility] Comment on above: Performed By: #### 2 35570 #### [facility],[address] [place] [address] 11937 LIPID PROFILEon 12-28-2024 Cholesterol [Mass/Vol] 206 mg/dL Normal 0 - 240 [facility] Comment on above: Performed By: #### 2 74997 #### [facility],[address] [place] [address] 05063 Cholesterol in HDL [Mass/Vol] 48 mg/dL Normal 40 - 60 [facility] Comment on above: Performed By: #### 2 77361 #### [facility],[address] [place] [address] 50516 Cholesterol in LDL [Mass/Vol] 134 mg/dL High 0 - 129 [facility] Comment on above: Performed By: #### 2 82505 #### [facility],[address] [place] [address] 29187 Cholesterol.total/Chol esterol in HDL [Mass ratio] 4.3 {ratio} Normal 0.0 - 5.0 [facility] Comment on above: Performed By: #### 2 72325 #### [facility],[address] [place] [address] 60710 Lipid 1996 panel Normal [facility] Comment on above: Result Comment: LIPI D PROFILE Performed By: #### 2 84203 #### [facility],[address] [place] [address] 11662 Triglyceride [Mass/Vol] 120 mg/dL Normal 0 - 150 [facility] Comment on above: Performed By: #### 2 59214 #### [facility],[address] [place] [address] 00552 TSHon 12-28-2024 TSH Qn 1.97 m[IU]/L Normal 0.35 - 3.74 [facility] Comment on above: Performed By: #### 2 55283 #### [facility],[address] [place] [address] 45802 BMP with eGFRon 04-27-2024 AGE 84 years Normal [facility] Comment on above: Performed By: #### 2 78046 #### [facility],[address] [place], [place] [id number] Anion gap [Moles/Vol] 12 mmol/L Normal 10 - 20 [facility] Comment on above: Performed By: #### 2 65846 #### [facility],[address] [place], [place] [address] BMP with eGFR Normal [facility] Comment on above: Result Comment: BASI C METABOLIC PANEL Performed By: #### 2 53973 #### [facility],[address] [place] [address] Calcium [Mass/Vol] 9.4 mg/dL Normal 8.5 - 10.1 [facility] Comment on above: Performed By: #### 2 46047 #### [facility],[address] [place], [place] [address] Chloride [Moles/Vol] 100 mmol/L Normal 98 - 107 [facility] Comment on above: Performed By: #### 2 98500 #### [facility],[address] [place] [address] 32714 CO2 [Moles/Vol] 29.3 mmol/L Normal 21.0 - 32.0 [facility] Comment on above: Performed By: #### 2 85845 #### [facility],[address] [place] [address] 34511 Creatinine [Mass/Vol] 1.40 mg/dL High 0.70 - 1.30 [facility] Comment on above: Performed By: #### 2 22162 #### [facility],[address] [place] [address] 88759 eGFR 48 ML/MINUTE Low 60 - 999 [facility] Comment on above: Performed By: #### 2 59194 #### [facility],[address] [place] [address] 09342 eGFR(AA) 58 ML/MINUTE Low 60 - 999 [facility] Comment on above: Result Comment: ACCO RDING TO THE NATIONAL KIDNEY DISEASE EDUCATION PROGRAM(NKDE), A NORMAL eGFR IS A VALUE GREATER THAN OR EQUAL TO 60 ML/MIN/1.73 SQ METERS. CHRONIC KIDNEY DISEASE: <60mL/MIN/1.73 SQ METERS KIDNEY FAILURE: <15mL/MIN/1.73 SQ METERS THIS TEST SHOULD ONLY BE USED FOR PATIENTS 18 YEARS OF AGE AND OLDER. Performed By: #### 2 57766 #### [facility],[address] [place] [address] 98321 Glucose [Mass/Vol] 93 mg/dL Normal 74 - 106 [facility] Comment on above: Performed By: #### 2 76695 #### [facility],[address] [place] [address] 67663 Potassium [Moles/Vol] 3.9 mmol/L Normal 3.5 - 5.1 [facility] Comment on above: Performed By: #### 2 10918 #### [facility],[address] [place] [address] 39538 Sodium [Moles/Vol] 137 mmol/L Normal 136 - 145 [facility] Comment on above: Performed By: #### 2 79736 #### [facility],[address] [place] [address] 44676 Urea nitrogen [Mass/Vol] 15 mg/dL Normal 7 - 18 [facility] Comment on above: Performed By: #### 2 18919 #### [facility],[address] [place] [address] 21241 T4-FREE (FREE THYROXINE)on 0 04-27-2024 Free T4 [Mass/Vol] 0.93 ng/dL Normal 0.76 - 1.46 [facility] Comment on above: Result Comment: P otential of falsely elevated results when biotin concentrations are > 10 ng/mL. Performed By: #### 2 15043 #### [address] [address] TSHon 04-27-2024 TSH Qn 1.71 m[IU]/L Normal 0.35 - 3.74 [facility] Comment on above: Performed By: #### 2 97765 #### [address] [address] T4-FREE (FREE THYROXINE)on 0 02-15-2024 Free T4 [Mass/Vol] 0.72 ng/dL Low 0.76 - 1.46 [facility] Comment on above: Result Comment: P otential of falsely elevated results when biotin concentrations are > 10 ng/mL. Performed By: #### 2 17885 #### [address] [address] RPR [CCL]on 02-14-2024 Reagin Ab RPR Ql (S) Non-Reactive Normal Nonreactive [facility] Comment on above: Result Comment: Rapi d plasma reagin (RPR) test detects non-treponemal antibodies. RPR may be reactive in a variety of infectious and non-infectious conditions. Correlation with clinical picture and with treponemal antibody results is required for final interpretation. [facility] [address] [place] [address] Kirk Flores III, M.D. [id number] Performed By: #### 2 37068 #### [address] [address] FOLATESon 02-13-2024 FOLATES 13.9 ng/ml Normal 8.6 - 58.9 [facility] Comment on above: Performed By: #### 2 82026 #### [address] [address] LIPID PROFILEon 02-13-2024 Cholesterol [Mass/Vol] 219 mg/dL Normal 0 - 240 [facility] Comment on above: Performed By: #### 2 39229 #### [facility],[address] [place], [place] [id number] Cholesterol in HDL [Mass/Vol] 45 mg/dL Normal 40 - 60 [facility] Comment on above: Performed By: #### 2 20867 #### [facility],[address] [place], [place] [address] Cholesterol in LDL [Mass/Vol] 149 mg/dL High 0 - 129 [facility] Comment on above: Performed By: #### 2 61423 #### [facility],[address] [place], [place] [address] Cholesterol.total/Chol esterol in HDL [Mass ratio] 4.9 {ratio} Normal 0.0 - 5.0 [facility] Comment on above: Performed By: #### 2 42627 #### [facility],[address] [place], [place] [address] Lipid 1996 panel Normal [facility] Comment on above: Result Comment: LIPI D PROFILE Performed By: #### 2 49080 #### [facility],[address] [place], [place] [id number] Triglyceride [Mass/Vol] 126 mg/dL Normal 0 - 150 [facility] Comment on above: Performed By: #### 2 01568 #### [facility],[address] [place], [place] [id number] RPR Ser Qlon 02-13-2024 Reagin Ab RPR Ql (S) Non-Reactive Normal Nonreactive [facility] Comment on above: Order Comment: Speci men Type: BLOOD SPECIMEN Ordering Facility: [facility] Address: [address] [place] [address] Result Comment: Rapi d plasma reagin (RPR) test detects non-treponemal antibodies. RPR may be reactive in a variety of infectious and non-infectious conditions. Correlation with clinical picture and with treponemal antibody results is required for final interpretation. Performed By: #### 2 0507-0 #### [facility] CLIA [id number] [address] [place] [address] [place] TSHon 02-13-2024 TSH Qn 10.13 m[IU]/L High 0.35 - 3.74 [facility] Comment on above: Performed By: #### 2 93692 #### [facility],[address] [place] [address] 68580 Oncology Visit Reporton Oncology Visit Report [facility] [address] [place], [place] [id number] OFFICE VISIT Date of Service: 02/08/24 1508 MR#: [id number] Acct: [id number] Name: ОЛЕГ DRAKE Rep #: [id number] : 1940 From: Tequila Cleary MD Age/Sex: 83/M [place] [facility] [place]: Signed HPI Subjective Date of Service 02/08/24 Chief Complaint Abnormal PET scan History of Present Illness Patient is an 83-year-old male who presented in October 2017 with hemoptysis 10/24/2017: CT chest with contrast showed evidence for emphysematous changes and scarring predominantly in the lower lobes, right pleural calcifications which could be due to previous empyema, no evidence of adenopathy, pleural effusions, or pulmonary masses. 02/14/2018: Patient completed hypopharyngoscopy and laryngoscopy with biopsy of the epiglottis mass. The preepiglottic space and vallecula appeared to be occupied by large friable bloody tumor. The area of the epiglottic folds, false cords, true cords, and both piriform sinuses appear to be normal and without tumor involvement. [employer] biopsies were obtained from different sites of the tumor mass. 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 02/20/2018: Patient was referred to radiation oncology. 02/28/2018: CT neck showed irregular abnormal thickening at the deep base of tongue extending into the vallecula involving the epiglottis right greater than left, this spans 3.5 cm along the base of tongue within the vallecula. There is no extension to the level of the true and false vocal cords and no apparent invasion of the immediately adjacent parapharyngeal fat planes or the retropharyngeal space. There are few shotty lymph nodes present in the bilateral cervical chains but none pathologically enlarged. 08/07/2018: PET/CT completion of treatment: IMPRESSION: 1. NEGATIVE EXAMINATION. There is no definitive quantitative scintigraphic evidence of recurrent-metastatic/v iable neoplasm. 2. There is interim metabolic resolution of the prior defined pharyngeal mucosal space, hypopharynx hypermetabolic focus. 3. Prominent left ventricular myocardial, as well as skeletal muscle distribution of radiopharmaceutical is commensurate with the pattern associated with failure to fast. (Delfina and Louisa, Journal of Nuclear Medicine Technology 31:3, 2003). 4. Overall, compared to the prior FDG PET study dated 03/13/18, there is current absence of defined viable neoplastic disease with an interim quantitative complete metabolic response relating to the prior defined pharyngeal mucosal space-hypopharyngeal metabolic abnormalities. June 2022???February 2024 stopped following up with medical and radiation oncology. December 2023 developed an episode of cough and acute small hemoptysis but was on Coumadin with supratherapeutic value at the time. December 16, 2023 CT chest: Emphysematous changes, interstitial changes, bullous changes, opacification within the bulla possible infectious or hemorrhagic. January 03, 2024 PET/CT: IMPRESSION: 1. ABNORMAL EXAMINATION INDICATIVE OF MALIGNANT-VIABLE NEOPLASM. 2. Increased radiopharmaceutical concentration defined in the left adrenal gland fulfills quantitative criteria for viable neoplasm. Correlation with Magnetic Resonance Imaging and/or CT of the abdomen and pelvis utilizing adrenal gland protocol is recommended. 3. Facilitated uptake noted in the left lower abdominal and upper pelvic mesentery adjacent to the abdominal-pelvic wall fulfills quantitative criteria for viable neoplasm with single point technique. 4. Accentuated glucose identified in the left lung field, left lower lobe fulfills borderline quantitative criteria for malignant transformation. Treatment: Combined chemotherapy (weekly carbo Taxol first 4 weeks) radiation Radiation treatment: 6996 cGy, bilateral lymph node levels 2 through 3 is receiving 5940 cGy, and bilateral levels 4, 5, and supraclavicular fossa is receiving 5610 cGy. Date of First Treatment: 03/22/18 Date of Last Treatment: 05/08/18 [facility] Medical History Gout Hiatal hernia Hx of prostatic malignancy Hypertension peg tube removed port removed Primary cancer of head and neck Prostate cancer Skin cancer Surgical History H/O left knee surgery S/P cataract extraction s/p foreign body removal neck S/P inguinal hernia repair S/P percutaneous endoscopic gastrostomy (PEG) tube placement S/P prostatectomy S/P reconstruction of ligament of knee Status post laparoscopic Alex fundoplication Family History Mother Skin cancer Hypertension Brother Alzheimer disease Fa (more content not included)... Normal [facility] CBC (NO DIFF)on 01-31-2024 CBC panel Auto (Bld) Normal [facility] Comment on above: Result Comment: CBC( WITHOUT DIFFERENTIAL) Performed By: #### 2 [id number] #### [facility],[address] [place] [address] Erythrocyte distribution width (RBC) [Ratio] 14.1 % Normal 12.0 - 15.6 [facility] Comment on above: Performed By: #### 2 [id number] #### [facility],[address] [place] [address] Hematocrit (Bld) [Volume fraction] 44.6 % Normal 40.0 - 52.0 [facility] Comment on above: Performed By: #### 2 [id number] #### [facility],[address] [place] [address] Hemoglobin (Bld) [Mass/Vol] 14.8 g/dL Normal 13.0 - 17.5 [facility] Comment on above: Performed By: #### 2 [id number] #### [facility],[address] [place] [address] MCH (RBC) [Entitic mass] 30 pg Normal 27 - 33 [facility] Comment on above: Performed By: #### 2 [id number] #### [facility],[address] [place] [address]157 MCHC 33 X10 3 Normal 32 - 36 [facility] Comment on above: Performed By: #### 2 [id number] #### [facility],[address] [place] [address]47 MCV (RBC) [Entitic vol] 91 fL Normal 81 - 98 [facility] Comment on above: Performed By: #### 2 [id number] #### [facility],[address] [place] [address]455 PLATELET 294 x10EE3/UL Normal 150 - 450 [facility] Comment on above: Performed By: #### 2 06029 #### [facility],[address] [place] [id number] Platelet mean volume (Bld) [Entitic vol] 7.4 fL Normal 6.4 - 10.5 [facility] Comment on above: Performed By: #### 2 [id number] #### [facility],[address] [place] [address] 65397 RBC 4.91 x 10EE6/UL Normal 4.50 - 6.00 [facility] Comment on above: Performed By: #### 2 76224 #### [facility],[address] [place] [address] 02769 WBC 9.4 x 10EE3/UL Normal 4.5 - 10.8 [facility] Comment on above: Performed By: #### 2 22100 #### [facility],[address] [place] [address]876 Pulmonary Visit Reporton Pulmonary Visit Report [facility] Pulmonary Medicine of [address] [place] [id number] OFFICE VISIT Date of Service: 01/31/24 MR#: [id number] Acct: [id number] Name: ОЛЕГ DRAKE Rep #: [id number] : 1940 Provider: Dr. Ayad Merrill DO Age/Sex: 83/M Location: [facility] [place] Status: Signed Assessment and Plan Assessment and Plan (1) Abnormal positron emission tomography (PET) scan: Status: Acute Plan: The patient was previously referred to our office for the evaluation of hemoptysis in the setting of supratherapeutic INR secondary to Coumadin. After discontinuing his systemic anticoagulation, the patient's hemoptysis has resolved. The patient was noted at that time to have an abnormal chest CT, for which follow-up imaging was completed at the beginning of January 2024. That imaging study demonstrated increased radio pharmacological uptake in the left adrenal gland, which filled quantitative criteria for viable neoplasm. Given the patient's history, will refer him back to oncology for recommendations regarding further workup and management. Although the patient did have evidence of mild COPD on PFTs, given his lack of respiratory symptoms, will hold off on starting him on a maintenance inhaler. Orders: Referrals Fast Pass: Oncology Referral [facility] R94.8 - Abnormal results of function studies of other organs and systems HPI HPI Comments Details: The patient is an 83-year-old male who presents to the clinic today for a routine scheduled follow- up office visit. If you recall, the patient was previously evaluated by Dr. Serra in December 2023 after presenting with hemoptysis, in the setting of systemic anticoagulation. The patient also had a CAT scan completed at an outside facility which demonstrated interstitial bullous formation with a large left lower lobe bulla with central opacification and chronic areas of pleural calcification. The patient had PFTs completed which demonstrated an irreversible mild large airways obstructive ventilatory defect with associated air trapping and disproportionate reduction in diffusing capacity. A PET scan was completed in January 2024 and demonstrated increased uptake in the left adrenal gland which filled quantitative criteria for viable neoplasm. Facilitated uptake was also noted in the left lower abdominal and upper pelvic mesentery with borderline uptake identified in the left lower lobe. The patient does have a remote smoking history, having quit completely 50 years ago. He does note a history of both throat and skin cancer. He was previously under the care of Dr. Cleary of oncology. Today, the patient denied any further episodes of hemoptysis. He denies any significant shortness of breath, chest tightness, wheezing or cough. His weight and appetite have been stable. Intake Vital Signs 12/21/23 06:02 01/31/24 06:49 Height 5 ft 9 in 5 ft 9 in Weight: 162 lb BMI 23.9 BP 136/73 H Blood Pressure Location Lt brachial Position Sitting Respiration 18 Pulse 57 L Pulse Source Monitor Temp 98.4 F Temperature Source Temporal Artery Pulse Oximetry (%) 96 Oxygen Delivery Method room air Intake Visit Reasons: 1 M FU Chief Complaint: Head and neck cancer follow-up [employer] Required: No DME Vendor: n/a Accompanied by: Self Is patient in pain?: No Allergies venom-wasp [wasp sting] Adverse Reaction (Severe, Verified 01/31/24 10:43) Nausea Medications sertraline 50 mg tablet 50 mg PO DAILY 11/10/20 [History Confirmed 01/31/24] levothyroxine 50 mcg capsule 75 mcg PO DAILY 12/22/20 [History Confirmed 01/31/24] ferrous sulfate 325 mg (65 mg iron) tablet (Feosol) 325 mg PO DAILY 12/21/23 [History Confirmed 01/31/24] PFSH Medical History Gout Hiatal hernia Hx of prostatic malignancy Hypertension peg tube removed port removed Primary cancer of head and neck Prostate cancer Skin cancer Surgical History H/O left knee surgery S/P cataract extraction s/p foreign body removal neck S/P inguinal hernia repair S/P percutaneous endoscopic gastrostomy (PEG) tube placement S/P prostatectomy S/P reconstruction of ligament of knee Status post laparoscopic Alex fundoplication Family History Mother Skin cancer Hypertension Brother Alzheimer disease Father Bleeding ulcer Social History household members: spouse Smoking Status: Former smoker how long ago did patient quit smoking: quite 30 years ago second hand exposure: Yes () substance use type: does not use seatbelt use: never do you feel safe at home: Yes Review of Systems Resp Respiratory: Yes as per (more content not included)... Normal [facility] PET/CT Tumor Base -Thigh Ini ton 01-03-2024 [facility] [address] [place] [address] PET/CT Tumor Base -Thigh Init MR#: [id number] Acct: [id number] Name: ОЛЕГ DRAKE Rep #: [id number] : 1940 M 83 From: Azeem Howe PCP: Dr. Kacey Edward MD Status: REG CLI Study: PET/CT Tumor Base -Thigh Init Date of Exam: Exam# [id number] Ordering Dr: Rex Serra MD [id number] EXAMINATION: FDG PET/CT ? INDICATIONS: 83-year-old male with a history of primary head/neck carcinoma presenting for restaging examination and evaluation of pulmonary nodularity. ? COMPARISON EXAMINATION: FDG-PET CT study report dated 08/07/2018. ? INDEX LESION SIZE SUV INTERPRETATION Left lung, left lower lobe 7.3 cm 2.4 Fulfills borderline quantitative criteria for viable neoplasm ? Left adrenal gland ? 3.0 max Fulfills quantitative criteria for viable neoplasm ? Left abdominal-pelvic mesentery, abdominal-pelvic wall 7.2 cm, largest 4.8 max Fulfills quantitative criteria for viable neoplasm with single point technique. ? TECHNIQUE: Following the intravenous administration of 13.17 mCi of F-18 deoxyglucose via the right hand, multiplanar image acquisitions of the head, neck, chest, abdomen and pelvis to the level of the midthigh, obtained at one-hour post radiopharmaceutical administration contemporaneously interpreted with the current CT of the chest, abdomen and pelvis dated 01/03/2024 and prior FDG-PET CT study report dated 08/07/2018 via coregistration reveal: ? SERUM GLUCOSE LEVEL:? 111 mg/dL? HEIGHT:?? 71 inches WEIGHT:?? 167 pounds ? FINDINGS: ? HEAD/NECK:? There is no evidence of abnormal increased glucose metabolism in the pharyngeal mucosal space, parapharyngeal space, oropharynx, bilateral-lateral and anterior neck, hypopharynx and distribution of the larynx. Symmetric radiotracer is defined in the bilateral strap musculature most consistent with muscle tension artifact. The visualized portion of the cerebral cortical-subcortical structures demonstrate symmetric and preserved glucose metabolism. ? CHEST: Facilitated FDG concentration is defined in the left mid lung zone, left lower lobe with central photopenia. The calculated maximum standard uptake value is 2.4. The maximal axial diameter of the metabolic, morphologic abnormality is 7.3 cm. ? CT of the chest demonstrates the following anatomic characteristics: Atherosclerotic calcification is defined in the thoracic aorta without evidence of dilatation, aneurysm formation. Coronary artery calcification is observed. Additional parenchymal densities defined in the bilateral hemithorax are nonglucose avid. Severe emphysematous changes are defined in the bilateral upper-lower lung zones. Bleb formation is noted in the right and left upper and lower hemithorax. ? ABDOMEN/PELVIS:? Enhanced radiopharmaceutical concentration is defined in the left upper abdomen associated with a normal-size left adrenal gland. The calculated standard uptake value is 3.0. There is facilitated FDG concentration noted in the left lower abdominal and upper pelvic mesenteric cavity-abdominal wall. The calculated standard uptake value is 4.8. The maximal axial diameter of the metabolic, morphologic abnormality is 7.2 cm. Normal physiologic distribution of the radiopharmaceutical is identified in the hepatic (3.4) and splenic parenchyma, both renal units, urinary bladder, and visualized intestinal tract. Diffuse intestinal tract is identified in all four quadrants of the abdominal-pelvic mesentery. ? CT of the abdomen and pelvis is remarkable for the following: Atherosclerotic calcification is defined in the abdominal aorta without evidence of dilatation, aneurysm formation. Abdominal-pelvic arterial calcification is observed. Colonic diverticulosis is noted without evidence of diverticulitis. Right and left inguinal soft tissue densities demonstrate no evidence of increased tracer uptake. ? SKELETAL:? There is no evidence of quantitatively significant enhanced glucose metabolism on meticulous inspection of the appendicular and axial skeletal structures. ? Degenerative changes defined in the thoracic and lumbar spine demonstrate no evidence of increased glucose metabolism. There are no sclerotic, mixed sclerotic-lytic, or primarily lytic changes defined in the axial skeletal structures with evidence of increased FDG uptake. ? PET/PET/CT Tumor Base -Thigh Init IMPRESSION: 1. ABNORMAL EXAMINATION INDICATIVE OF MALIGNANT-VIABLE NEOPLASM. 2. Increased radiopharmaceutical concentration defined in the left adrenal gland fulfills quantitative criteria for viable neoplasm. Correlation with Magnetic Resonance Imaging and/or CT of the abdomen and pelvis utilizing adrenal gland protocol is recommended. 3. Facilitated uptake noted in the (more content not included)... Normal [facility] Pulmonary Visit Reporton Pulmonary Visit Report [facility] [place] [address] [place] [address] OFFICE VISIT Date of Service: 12/21/23 MR#: [id number] Acct: [id number] Name: ОЛЕГ DRAKE Rep #: [id number] : 1940 Provider: Dr. Rex Serra MD Age/Sex: 83/M Location: [facility] Status: Signed Assessment and Plan Assessment and Plan (1) Cough with hemoptysis: Status: Acute (2) Mass of left lung: Status: Acute Comment: Left hilar Orders: Orders PET/CT Tumor Base -Thigh Init Today R91.8 - Other nonspecific abnormal finding of lung field Pulmonary Function Test (Comp) 2 Weeks R04.2 - Hemoptysis Medications: Discontinued warfarin Discontinued Reason: Order Changed 2 mg PO QDAY Plan Patient with ongoing hemoptysis, likely secondary to continued warfarin. This will be stopped immediately. There does appear to be a possible endobronchial lesion in the left lower lobe, but this could constitute clot on the CT scan. Patient does have an extensive bulla formation in the left lower lobe, likely secondary to previous empyema per patient report. Determination of possible biopsy sites is very difficult given amount of blood noted. Patient does have multiple previous cancers, so metastasis would be a concern. Patient may also have bronchial artery bleeding secondary to previous cavitary pneumonia. Patient may potentially have bronchial embolization versus left lower lobectomy pending results of PET scan and PFT. If PET positive in the left hilum, EBUS may be a consideration. Patient is not giving constitutional symptoms to suggest a recurrent empyema or infected bulla at this time. Discontinue Coumadin. Obtain complete PFT and PET scan. HPI Hemoptysis/Opacity in lungs Details: Patient is an 83-year-old male, currently under the care of Dr. Gaviria, who presents for evaluation secondary to ongoing hemoptysis and an abnormal CT scan. Patient does present with his son who is able to provide additional information. Patient reportedly has had a history of a left lower lobe pneumonia with empyema in the past. Patient reportedly was hospitalized for quite some time. Patient was told that his lungs were not normal, but there was nothing else to do. Patient was in the [place] and did report an exposure to asbestos. Patient denied any TB. Patient has never had a positive PPD that he is aware of. Patient has been doing relatively well until recently. Patient had presented to the emergency room at an outside facility with ongoing hemoptysis. Patient reportedly had hemoptysis of approximately 50 send piece of bright red blood initially. Over the course of the last week, this has turned more dark red and has regressed to approximately a quarter size. Patient still states that he has hemoptysis with every cough. This has not included any sputum that he is aware of. Patient is not reporting any fevers, chills or chest pain. Patient has not been overly short of breath from his report and the son agrees. Patient reportedly has never seen a sap analyst or had a PFT previously. Patient does have a history of multiple cancers in the past. Patient has had multiple skin cancers, but the patient and son are unaware of the exact type. Patient has also had laryngeal cancer and prostate cancer. Patient states he has been using Coumadin and was recently told to decrease the dosage as his blood was too thin. Patient is not using any inhalers at this time. Review of systems otherwise negative from a constitutional, HEENT, respiratory, cardiovascular, GI, genitourinary, musculoskeletal, skin, neurologic, psychiatric and hematologic system unless stated above. Documentation reviewed 20 pages of documentation were reviewed prior to the office visit. Patient reportedly had presented to an outside emergency department with complaints of hematemesis. A CT scan at that time showed interstitial bullous formation with a large left lower bulla with central opacification that was new compared to November 06, 2023. Patient also has areas of pleural calcification that are reportedly chronic. The ER did have laboratory workup completed showing the creatinine of 1.33 and otherwise unremarkable CMP. Patient did have a CBC showing a hemoglobin of 13.2, white blood cell count of 7.5 and 2.3% eosinophils Intake Vital Signs 07/22/22 14:46 12/21/23 06:02 Height 5 ft 9 in 5 ft 9 in Weight: 75.75 kg BMI 24.6 BP 96/56 L Blood Pressure Location Rt brachial Position Sitting Respiration 20 H Pulse 65 Pulse Source Monitor Temp 36.3 C L Temperature Source Temporal Artery Pulse Oximetry (%) 95 Oxygen Delivery Method room air Intake Visit Reasons: Hemoptysis/Opacity in lungs [employer] Required: No DME Vendor: n/a Accompanied by: Son Is patien (more content not included)... Normal [facility] Absolute lymphocyte countOrd ered By: Dr. Parr on 01-07-2023 Lymphocytes Auto (Unsp spec) [#/Vol] 1.11 10*3/uL 0.83-4.51 [facility] Basophil percentageOrdered B y: Dr. Parr on 01-07-2023 Basophil percentage 2.4 mg/dL 2.5-4.9 [facility] Basophils/100 WBC (Bld) 0.5 % 0-1 [facility] Bilirubin [Mass/Vol] 0.90 mg/dL 0.20-1.00 [facility] Comment on above: For patients on eltr ombopag therapy, use of Dimension [place] TBIL is not recommended. Chloride [Moles/Vol] 105 mmol/L 98-107 [facility] Eosinophils/100 WBC (Bld) 2.0 % 0-5 [facility] Glucose [Mass/Vol] 98 mg/dL 74-106 [facility] Neutrophils (Bld) [#/Vol] 5.5 10*3/uL 2.0-7.7 [facility] Neutrophils/100 WBC (Bld) 73.0 % 47-70 [facility] Potassium [Moles/Vol] 4.0 mmol/L 3.5-5.[address] [facility] Protein [Mass/Vol] 7.3 g/dL 6.4-8.2 [facility] Sodium [Moles/Vol] 140 mmol/L 136-145 [facility] WBC (Bld) [#/Vol] 7.6 10*3/uL 4.4-11.0 [facility] Blood erythrocytes count (nu mber/volume)Ordered By: Dr. Parr on 01-07-2023 RBC (Bld) [#/Vol] 5.01 10*6/uL 4.6-6.2 [facility] Blood hemoglobin measurement (mass/volume)Ordered By: Dr. Parr on 01-07-2023 Hemoglobin (Bld) [Mass/Vol] 15.1 g/dL 13.0-16.5 [facility] Blood lymphocytes/100 leukoc ytesOrdered By: Dr. Parr on 01-07-2023 Lymphocytes/100 WBC (Bld) 14.7 % 19-41 [facility] Blood monocytes/100 leukocyt esOrdered By: Dr. Parr on 01-07-2023 Monocytes/100 WBC (Bld) 9.4 % 0-10 [facility] Blood platelet mean volumeOr dered By: Dr. Parr on 01-07-2023 Platelet mean volume (Bld) [Entitic vol] 8.8 fL 6.2-12.0 [facility] Determination of erythrocyte mean corpuscular volume (MCV)Ordered By: Dr. Parr on 01-07-2023 MCV (RBC) [Entitic vol] 93.2 fL 80-94 [facility] Hematocrit Auto (Bld) [Volum e fraction]Ordered By: Dr. Parr on 01-07-2023 Hematocrit (Bld) [Volume fraction] 46.7 % 40-54 [facility] Laboratory - Chemistry and C hemistry - challengeOrdered By: Dr. Parr on 01-07-2023 ALP [Catalytic activity/Vol] 70 U/L 45-117 [facility] ALT [Catalytic activity/Vol] 19 U/L 16-61 [facility] CO2 [Moles/Vol] 27.0 mmol/L 21.0-32.0 [facility] Cobalamin (Vitamin B12) [Mass/Vol] 375 pg/mL 211-911 [facility] Free T4 [Mass/Vol] 1.01 ng/dL 0.76-1.46 [facility] Globulin (S) [Mass/Vol] 3.6 g/dL 2.2-4.2 [facility] Urea nitrogen/Creatinine [Mass ratio] 11.9 mg/mg 10-20 [facility] Laboratory - Hematology and Cell countsOrdered By: Dr. Parr on 01-07-2023 Erythrocyte distribution width (RBC) [Entitic vol] 46.1 fL 35.1-43.9 [facility] Erythrocyte distribution width (RBC) [Ratio] 13.5 % 11.6-14.6 [facility] Immature granulocytes/100 WBC (Bld) 0.400 % 0.0-0.9 [facility] Comment on above: IG% - Immature Granu locytes (promyelocytes, myelocytes and metamyelocytes) > 1% indicates that a LEFT SHIFT is Present. MCH (RBC) [Entitic mass] 30.1 pg 27.0-32.0 [facility] Nucleated RBC/100 WBC (Bld) [Ratio] 0 % 0-5 [facility] MCHC Auto (RBC) [Mass/Vol]Or dered By: Dr. Parr on 01-07-2023 MCHC (RBC) [Mass/Vol] 32.3 g/dL 32-[address] [facility] No Panel InformationOrdered By: Dr. Parr on 01-07-2023 Estimated GFR (MDRD) Amer 57 mL/min >60 [facility] Comment on above: GFR Calc Estimated GFR (MDRD) Non-Af Amer 47 mL/min >60 [facility] Comment on above: Non- GFR Calc Parathyroid Hormone (Intact) 53.2 pg/mL 18.4-80.1 [facility] Thyroid Stimulating Hormone (TSH) 2.16 uIU/mL 0.358-3.74 [facility] Platelets bldOrdered By: Dr. Parr on 01-07-2023 Platelets (Bld) [#/Vol] 270 10*3/uL 150-450 [facility] Serum or plasma albumin rk urement (mass/volume)Ordered By: Dr. Parr on 01-07-2023 Albumin [Mass/Vol] 3.7 g/dL 3.2-5.0 [facility] Serum or plasma albumin/glob ulin mass ratioOrdered By: Dr. Parr on 01-07-2023 Albumin/Globulin [Mass ratio] 1.0 {ratio} 0.9-2.4 [facility] Serum or plasma calcium rk urement (mass/volume)Ordered By: Dr. Parr on 01-07-2023 Calcium [Mass/Vol] 9.6 mg/dL 8.5-10.1 [facility] Serum or plasma creatinine m easurement (mass/volume)Ordered By: Dr. Parr on 01-07-2023 Creatinine [Mass/Vol] 1.51 mg/dL 0.70-1.[address] [facility] Comment on above: The validity of the calculated GFR & GFRAA in patients over 70 years has not been determined. Clinical correlation is essential. Serum or plasma urea nitroge n measurement (mass/volume)Ordered By: Dr. Parr on 01-07-2023 Urea nitrogen [Mass/Vol] 18 mg/dL 7-18 [facility] Thin prep Papanicolaou smear with manual screeningOrdered By: Dr. Parr on 01-07-2023 Thin prep Papanicolaou smear with manual screening 24 U/L 15-37 [facility] Thin prep Papanicolaou smear with manual screening 8 5-15 [facility] Whole blood hemoglobin A1c/t otal hemoglobin ratio (mass fraction)Ordered By: Dr. Parr on 01-07-2023 HbA1c (Bld) [Mass fraction] 5.6 % 3.8-5.6 [facility] Comment on above: Normal < 5.7 % Predi abetic 5.7 - 6.4 % Diabetic >or= 6.5 % Please note range changes. Absolute lymphocyte countOrd ered By: Dr. Parr on 09-17-2022 Lymphocytes Auto (Unsp spec) [#/Vol] 1.21 10*3/uL 0.83-4.51 [facility] Basophil percentageOrdered B y: Dr. Parr on 09-17-2022 Basophils/100 WBC (Bld) 0.5 % 0-1 [facility] Bilirubin [Mass/Vol] 1.00 mg/dL 0.20-1.00 [facility] Comment on above: For patients on eltr ombopag therapy, use of Dimension [place] TBIL is not recommended. Chloride [Moles/Vol] 102 mmol/L 98-107 [facility] Eosinophils/100 WBC (Bld) 1.5 % 0-5 [facility] Glucose [Mass/Vol] 112 mg/dL 74-106 [facility] Comment on above: Fasting Glucose resu lt from 100 to 125 mg/dL suggests IMPAIRED HOMEOSTASIS per A.D.A. criteria. Neutrophils (Bld) [#/Vol] 6.0 10*3/uL 2.0-7.7 [facility] Neutrophils/100 WBC (Bld) 72.4 % 47-70 [facility] Potassium [Moles/Vol] 4.3 mmol/L 3.5-5.[address] [facility] Protein [Mass/Vol] 7.0 g/dL 6.4-8.2 [facility] Sodium [Moles/Vol] 139 mmol/L 136-145 [facility] WBC (Bld) [#/Vol] 8.2 10*3/uL 4.4-11.0 [facility] Blood erythrocytes count (nu mber/volume)Ordered By: Dr. Parr on 09-17-2022 RBC (Bld) [#/Vol] 4.85 10*6/uL 4.6-6.2 [facility] Blood hemoglobin measurement (mass/volume)Ordered By: Dr. Parr on 09-17-2022 Hemoglobin (Bld) [Mass/Vol] 14.8 g/dL 13.0-16.5 [facility] Blood lymphocytes/100 leukoc ytesOrdered By: Dr. Parr on 09-17-2022 Lymphocytes/100 WBC (Bld) 14.7 % 19-41 [facility] Blood monocytes/100 leukocyt esOrdered By: Dr. Parr on 09-17-2022 Monocytes/100 WBC (Bld) 10.3 % 0-10 [facility] Blood platelet mean volumeOr dered By: Dr. Parr on 09-17-2022 Platelet mean volume (Bld) [Entitic vol] 9.5 fL 6.2-12.0 [facility] Determination of erythrocyte mean corpuscular volume (MCV)Ordered By: Dr. Parr on 09-17-2022 MCV (RBC) [Entitic vol] 93.2 fL 80-94 [facility] Hematocrit Auto (Bld) [Volum e fraction]Ordered By: Dr. Parr on 09-17-2022 Hematocrit (Bld) [Volume fraction] 45.2 % 40-54 [facility] Laboratory - Chemistry and C hemistry - challengeOrdered By: Dr. Parr on 09-17-2022 ALP [Catalytic activity/Vol] 72 U/L 45-117 [facility] ALT [Catalytic activity/Vol] 22 U/L 16-61 [facility] CO2 [Moles/Vol] 30.0 mmol/L 21.0-32.0 [facility] Free T4 [Mass/Vol] 1.10 ng/dL 0.76-1.46 [facility] Globulin (S) [Mass/Vol] 3.3 g/dL 2.2-4.2 [facility] Urea nitrogen/Creatinine [Mass ratio] 10.7 mg/mg 10-20 [facility] Laboratory - Hematology and Cell countsOrdered By: Dr. Parr on 09-17-2022 Erythrocyte distribution width (RBC) [Entitic vol] 46.4 fL 35.1-43.9 [facility] Erythrocyte distribution width (RBC) [Ratio] 13.5 % 11.6-14.6 [facility] Immature granulocytes/100 WBC (Bld) 0.600 % 0.0-0.9 [facility] Comment on above: IG% - Immature Granu locytes (promyelocytes, myelocytes and metamyelocytes) > 1% indicates that a LEFT SHIFT is Present. MCH (RBC) [Entitic mass] 30.5 pg 27.0-32.0 [facility] Nucleated RBC/100 WBC (Bld) [Ratio] 0 % 0-5 [facility] MCHC Auto (RBC) [Mass/Vol]Or dered By: Dr. Parr on 09-17-2022 MCHC (RBC) [Mass/Vol] 32.7 g/dL 32-[address] [facility] No Panel InformationOrdered By: Dr. Parr on 09-17-2022 Estimated GFR (MDRD) Amer 54 mL/min >60 [facility] Comment on above: GFR Calc Estimated GFR (MDRD) Non-Af Amer 44 mL/min >60 [facility] Comment on above: Non- GFR Calc Prostate Specific Antigen Total < 0.01 ng/mL 0.0-4.0 [facility] Comment on above: This test was perfor med using the TPSA assay method for the[facility] system. Values obtained with differentassay methods cannot be used interchangably.When changing PSA assays in the course of monitoring apatient, additional sequential testing should be carriedout to confirm baseline values. Thyroid Stimulating Hormone (TSH) 2.29 uIU/mL 0.358-3.74 [facility] Platelets bldOrdered By: Dr. Parr on 09-17-2022 Platelets (Bld) [#/Vol] 282 10*3/uL 150-450 [facility] Serum or plasma albumin rk urement (mass/volume)Ordered By: Dr. Parr on 09-17-2022 Albumin [Mass/Vol] 3.7 g/dL 3.2-5.0 [facility] Serum or plasma albumin/glob ulin mass ratioOrdered By: Dr. Parr on 09-17-2022 Albumin/Globulin [Mass ratio] 1.1 {ratio} 0.9-2.4 [facility] Serum or plasma calcium rk urement (mass/volume)Ordered By: Dr. Parr on 09-17-2022 Calcium [Mass/Vol] 9.8 mg/dL 8.5-10.1 [facility] Serum or plasma creatinine m easurement (mass/volume)Ordered By: Dr. Parr on 09-17-2022 Creatinine [Mass/Vol] 1.59 mg/dL 0.70-1.[address] [facility] Comment on above: The validity of the calculated GFR & GFRAA in patients over 70 years has not been determined. Clinical correlation is essential. Serum or plasma urea nitroge n measurement (mass/volume)Ordered By: Dr. Parr on 09-17-2022 Urea nitrogen [Mass/Vol] 17 mg/dL 7-18 [facility] Thin prep Papanicolaou smear with manual screeningOrdered By: Dr. Parr on 09-17-2022 Thin prep Papanicolaou smear with manual screening 21 U/L 15-37 [facility] Thin prep Papanicolaou smear with manual screening 7 5-15 [facility] Whole blood hemoglobin A1c/t otal hemoglobin ratio (mass fraction)Ordered By: Dr. Parr on 09-17-2022 HbA1c (Bld) [Mass fraction] 5.8 % 3.8-5.6 [facility] Comment on above: Normal < 5.7 % Predi abetic 5.7 - 6.4 % Diabetic >or= 6.5 % Please note range changes. Absolute lymphocyte counton 06-14-2022 Lymphocytes Auto (Unsp spec) [#/Vol] 1.22 10*3/uL 0.83-4.51 [facility] Work Phone: Basophil percentageon 2021 Basophils/100 WBC (Bld) 0.7 % 0-1 [facility] Work Phone: Bilirubin [Mass/Vol] 0.80 mg/dL 0.20-1.00 [facility] Work Phone: Comment on above: For patients on eltr ombopag therapy, use of Dimension [place] TBIL is not recommended. Chloride [Moles/Vol] 107 mmol/L 98-107 [facility] Work Phone: Eosinophils/100 WBC (Bld) 1.0 % 0-5 [facility] Work Phone: Glucose [Mass/Vol] 119 mg/dL 74-106 [facility] Work Phone: Comment on above: Fasting Glucose resu lt from 100 to 125 mg/dL suggests IMPAIRED HOMEOSTASIS per A.D.A. criteria. Neutrophils (Bld) [#/Vol] 6.1 10*3/uL 2.0-7.7 [facility] Work Phone: Neutrophils/100 WBC (Bld) 72.6 % 47-70 [facility] Work Phone: Potassium [Moles/Vol] 4.2 mmol/L 3.5-5.[address] [facility] Work Phone: Protein [Mass/Vol] 7.4 g/dL 6.4-8.2 [facility] Work Phone: Sodium [Moles/Vol] 142 mmol/L 136-145 [facility] Work Phone: WBC (Bld) [#/Vol] 8.4 10*3/uL 4.4-11.0 [facility] Work Phone: Blood erythrocytes count (nu mber/volume)on 06-14-2022 RBC (Bld) [#/Vol] 4.94 10*6/uL 4.6-6.2 [facility] Work Phone: Blood hemoglobin measurement (mass/volume)on 06-14-2022 Hemoglobin (Bld) [Mass/Vol] 15.0 g/dL 13.0-16.5 [facility] Work Phone: Blood lymphocytes/100 leukoc yteson 06-14-2022 Lymphocytes/100 WBC (Bld) 14.5 % 19-41 [facility] Work Phone: [phone] Blood monocytes/100 leukocyt eson 06-14-2022 Monocytes/100 WBC (Bld) 11.0 % 0-10 [facility] Work Phone: Blood platelet mean volumeon 06-14-2022 Platelet mean volume (Bld) [Entitic vol] 8.4 fL 6.2-12.0 [facility] Work Phone: Determination of erythrocyte mean corpuscular volume (MCV)on 06-14-2022 MCV (RBC) [Entitic vol] 91.9 fL 80-94 [facility] Work Phone: Hematocrit Auto (Bld) [Volum e fraction]on 06-14-2022 Hematocrit (Bld) [Volume fraction] 45.4 % 40-54 [facility] Work Phone: Laboratory - Chemistry and C hemistry - challengeon 06-14-2022 ALP [Catalytic activity/Vol] 75 U/L 45-117 [facility] Work Phone: [phone] ALT [Catalytic activity/Vol] 17 U/L 16-61 [facility] Work Phone: [phone] CO2 [Moles/Vol] 30.0 mmol/L 21.0-32.0 [facility] Work Phone: Globulin (S) [Mass/Vol] 3.7 g/dL 2.2-4.2 [facility] Work Phone: Urea nitrogen/Creatinine [Mass ratio] 13.8 mg/mg 10-20 [facility] Work Phone: [phone] Laboratory - Hematology and Cell countson 06-14-2022 Erythrocyte distribution width (RBC) [Entitic vol] 46.9 fL 35.1-43.9 [facility] Work Phone: [phone] Erythrocyte distribution width (RBC) [Ratio] 13.8 % 11.6-14.6 [facility] Work Phone: [phone] Immature granulocytes/100 WBC (Bld) 0.200 % 0.0-0.9 [facility] Work Phone: [phone] Comment on above: IG% - Immature Granu locytes (promyelocytes, myelocytes and metamyelocytes) > 1% indicates that a LEFT SHIFT is Present. MCH (RBC) [Entitic mass] 30.4 pg 27.0-32.0 [facility] Work Phone: [phone] Nucleated RBC/100 WBC (Bld) [Ratio] 0 % 0-5 [facility] Work Phone: [phone] MCHC Auto (RBC) [Mass/Vol]on 06-14-2022 MCHC (RBC) [Mass/Vol] 33.0 g/dL 32-[address] [facility] Work Phone: No Panel Informationon 06-14 Thyroid Stimulating Hormone (TSH) 1.55 uIU/mL 0.358-3.74 [facility] Work Phone: [phone] Estimated Creatinine Clearance Calc 34.58 ml/min [facility] Work Phone: [phone] Estimated GFR (MDRD) Amer 54 mL/min >60 [facility] Work Phone: [phone] Comment on above: GFR Calc Estimated GFR (MDRD) Non-Af Amer 44 mL/min >60 [facility] Work Phone: [phone] Comment on above: Non- GFR Calc Platelets bldon 06-14-2022 Platelets (Bld) [#/Vol] 254 10*3/uL 150-450 [facility] Work Phone: [phone] Serum or plasma albumin rk urement (mass/volume)on 06-14-2022 Albumin [Mass/Vol] 3.7 g/dL 3.2-5.0 [facility] Work Phone: [phone] Serum or plasma albumin/glob ulin mass ratioon 06-14-2022 Albumin/Globulin [Mass ratio] 1.0 {ratio} 0.9-2.4 [facility] Work Phone: [phone] Serum or plasma calcium rk urement (mass/volume)on 06-14-2022 Calcium [Mass/Vol] 9.9 mg/dL 8.5-10.1 [facility] Work Phone: [phone] Serum or plasma creatinine m easurement (mass/volume)on 06-14-2022 Creatinine [Mass/Vol] 1.59 mg/dL 0.70-1.[address] [facility] Work Phone: Comment on above: The validity of the calculated GFR & GFRAA in patients over 70 years has not been determined. Clinical correlation is essential. Serum or plasma urea nitroge n measurement (mass/volume)on 06-14-2022 Urea nitrogen [Mass/Vol] 22 mg/dL 7-18 [facility] Work Phone: [phone] Thin prep Papanicolaou smear with manual screeningon 06-14-2022 Thin prep Papanicolaou smear with manual screening 18 U/L 15-37 [facility] Work Phone: Thin prep Papanicolaou smear with manual screening 5 5-15 [facility] Work Phone: [phone] Blood platelet adequacy dete ction by light microscopyon 07-24-2018 Platelets LM Ql (Bld) A ADEQ [facility] Work Phone: [phone] Erythrocyte distribution wid th standard deviationon 07-24-2018 Erythrocyte distribution width (RBC) [Entitic vol] 46.1 fL 35.1-43.9 [facility] Work Phone: [phone] Laboratory - Hematology and Cell countson 07-24-2018 Erythrocyte distribution width (RBC) [Ratio] 14.1 % 11.6-14.6 [facility] Work Phone: No Panel Informationon 07-24 Differential Comment See comment [facility] Work Phone: Comment on above: LYMPHOPENIA NOTED RBC morphologyon 07-24-2018 RBC morphology finding Nom (Bld) NORM C+C NORMAL NORM C&C [facility] Work Phone: Total cell counton 8 Cells counted Molgen (Bld/Tiss) [#] Not Reportable [facility] Work Phone: Serum or plasma uric acid me asurement (mass/volume)on 04-28-2018 Urate [Mass/Vol] 4.8 mg/dL 3.5-7.2 [facility] Work Phone: Comment on above: The drugs N-Acetylcy steine and Metamizole may falsely depress this assay. Laboratory - Hematology and Cell countson 04-27-2018 Anisocytosis Ql (Bld) 1+ [facility] Work Phone: Laboratory - Chemistry and C hemistry - challengeon 03-29-2018 Magnesium [Mass/Vol] 2.0 mg/dL 1.6-2.6 [facility] Work Phone: Vital Signs Date Time Vital Sign Value Performing Clinician Faci lity 12-21-2023 06:02-0400 Body height 175.[address] Que Parr Work Phone: [facility] 12-21-2023 06:02-0400 Body mass index (BMI) [Ratio] 24.6 kg/m2 Dr. Que Parr Work Phone: [facility] 12-21-2023 06:02-0400 Body temperature 97.3 [degF] Dr. Que Parr Work Phone: [facility] 12-21-2023 06:02-0400 Body weight 75.[address] Que Parr Work Phone: [facility] 12-21-2023 06:02-0400 Diastolic blood pressure 56 mm[Hg] Dr. Que Parr Work Phone: [facility] 12-21-2023 06:02-0400 Heart rate 65 /min Dr. Que Parr Work Phone: [facility] 12-21-2023 06:02-0400 Respiratory rate 20 /min Dr. Que Parr Work Phone: [facility] 12-21-2023 06:02-0400 SaO2% (BldA) [Mass fraction] 95 % Dr. Que Parr Work Phone: [facility] 12-21-2023 06:02-0400 Systolic blood pressure 96 mm[Hg] Dr. Que Parr Work Phone: [facility] 07-22-2022 14:46-0400 Body height 175.[address] Que Parr Work Phone: [facility] Work Phone: 07-22-2022 14:42-0400 Body mass index (BMI) [Ratio] 26.2 kg/m2 Dr. Que Parr Work Phone: [facility] Work Phone: 07-22-2022 14:42-0400 Body temperature 97.5 [degF] Dr. Que Parr Work Phone: [facility] Work Phone: 07-22-2022 14:42-0400 Body weight 80.[address] Que Parr Work Phone: [facility] Work Phone: 07-22-2022 14:42-0400 Diastolic blood pressure 72 mm[Hg] Dr. Que Parr Work Phone: [facility] Work Phone: 07-22-2022 14:42-0400 Heart rate 66 /min Dr. Que Parr Work Phone: [facility] Work Phone: 07-22-2022 14:42-0400 Respiratory rate 16 /min Dr. Que Parr Work Phone: [facility] Work Phone: 07-22-2022 14:42-0400 SaO2% (BldA) [Mass fraction] 94 % Dr. Qeu Parr Work Phone: [facility] Work Phone: 07-22-2022 14:42-0400 Systolic blood pressure 145 mm[Hg] Dr. Que Parr Work Phone: [facility] Work Phone: 06-14-2022 14:16-0400 Body height 175.[address] Que Parr Work Phone: [facility] Work Phone: 06-14-2022 14:15-0400 Body mass index (BMI) [Ratio] 25.8 kg/m2 Dr. Que Parr Work Phone: [facility] Work Phone: 06-14-2022 14:15-0400 Body temperature 97.4 [degF] Dr. Que Parr Work Phone: [facility] Work Phone: 06-14-2022 14:15-0400 Body weight 79.[address] Que Parr Work Phone: [facility] Work Phone: 06-14-2022 14:15-0400 Diastolic blood pressure 87 mm[Hg] Dr. Que Parr Work Phone: [facility] Work Phone: 06-14-2022 14:15-0400 Heart rate 68 /min Dr. Que Parr Work Phone: [facility] Work Phone: 06-14-2022 14:15-0400 Respiratory rate 16 /min Dr. Que Parr Work Phone: [facility] Work Phone: 06-14-2022 14:15-0400 SaO2% (BldA) [Mass fraction] 93 % Dr. Que Parr Work Phone: [facility] Work Phone: 06-14-2022 14:15-0400 Systolic blood pressure 148 mm[Hg] Dr. Que Parr Work Phone: [facility] Work Phone: 11-10-2020 10:35-0500 Body temperature 97.8 [degF] Dr. Que Parr Work Phone: [facility] Work Phone: 11-10-2020 10:35-0500 Body weight 75.[address] Que Parr Work Phone: [facility] Work Phone: 11-10-2020 10:35-0500 Diastolic blood pressure 61 mm[Hg] Dr. Que Parr Work Phone: [facility] Work Phone: 11-10-2020 10:35-0500 Heart rate 70 /min Dr. Que Parr Work Phone: [facility] Work Phone: 11-10-2020 10:35-0500 Respiratory rate 14 /min Dr. Que Parr Work Phone: [facility] Work Phone: 11-10-2020 10:35-0500 SaO2% (BldA) [Mass fraction] 94 % Dr. Que Parr Work Phone: [facility] Work Phone: 11-10-2020 10:35-0500 Systolic blood pressure 127 mm[Hg] Dr. Que Parr Work Phone: [facility] Work Phone: 11-15-2019 14:23-0500 Body mass index (BMI) [Ratio] 268.1 kg/m2 Dr. Que Parr Work Phone: [facility] Work Phone: Encounters Encounter Date Encounter Type Care Provider Facility Start: 12-28-2024 End: 12-28-2024 ambulatory KACEY EDWARD [facility] Start: 04-27-2024 End: 04-27-2024 [facility] Start: 04-20-2024 End: 04-20-2024 [facility] Start: 04-20-2024 End: 04-20-2024 ambulatory KACEY EDWARD [facility] Start: 02-15-2024 End: 02-15-2024 [facility] Start: 02-13-2024 End: 02-13-2024 [facility] Start: 02-08-2024 End: 02-08-2024 ambulatory Kacey Edward Facility:[facility] Start: 02-06-2024 End: 02-06-2024 ambulatory CLYDE EGAN [facility] Start: 01-31-2024 End: 01-31-2024 [facility] Start: 01-31-2024 End: 01-31-2024 ambulatory Kacey Edward Facility:[facility] Start: 01-03-2024 End: 01-03-[address] Que Parr Work Phone: [facility] Work Phone: Start: 01-03-2024 End: 01-03-[address] Que Parr Work Phone: [facility] Start: 01-03-2024 End: 01-03-2024 ambulatory Kacey Edward Facility:[facility] Start: 12-21-2023 End: 12-21-[address] Que Parr Work Phone: [facility] [place] Work Phone: Start: 12-21-2023 End: 12-21-2023 ambulatory Que Parr Facility:[facility] Start: 01-07-2023 End: 01-07-2023 ambulatory [facility] Work Phone: Start: 01-07-2023 End: 01-07-2023 Patient encounter procedure [facility] Start: 09-17-2022 End: 09-17-[address] Que Parr Work Phone: [facility] Work Phone: Start: 09-17-2022 End: 09-17-[address] Que Parr Work Phone: [facility] Start: 07-22-2022 End: 07-22-[address] Que Parr Work Phone: [facility] Start: 07-07-2022 Non-patient / Non-visit Dr. Nadira Parr Work Phone: [facility] Start: 07-07-2022 End: 07-07-[address] Que Parr Work Phone: [facility] Work Phone: Start: 07-07-2022 End: 07-07-[address] Que Parr Work Phone: [facility] Start: 06-14-2022 End: 06-14-[address] Que Parr Work Phone: [facility] Work Phone: Start: 06-14-2022 End: 06-14-[address] [facility] Start: 06-14-[address] Que Parr Work Phone: [facility] Start: 06-14-2022 End: 06-14-[address] Que Parr Work Phone: [facility] Procedures Date Procedure Procedure Detail Performing Clinician Start: 01-03-2024 Positron emission tomography with computed tomography Dr. Que Parr Work Phone: Start: 06-14-2022 Plain chest X-ray Dr. Nikunj Parr Work Phone: Start: 08-07-2018 PET/CT Tumor Base -T high Subs Dr. Que Parr Work Phone: Plan of Treatment Date Care Activity Detail Author Start: 06-20-2018 [facility] Work Phone: Start: 06-02-2018 [facility] Work Phone: Start: 04-27-2018 [facility] Work Phone: Start: 04-13-2018 Blood chemistry [facility] Work Phone: Start: 03-13-2018 [facility] Work Phone: Start: 03-13-2018 [facility] Work Phone: Start: 03-02-2018 [facility] Work Phone: Start: 02-23-2018 CT Neck W contrast IV [facility] Work Phone: Start: 02-23-2018 [facility] Work Phone: Positron emission to mography with computed tomography [facility] XR Chest PA and Lateral [facility] Work Phone: Payers Date Payer Category Payer Self-pay [id number] 2023 Medicare [id number] 1940 Unknown [id number] 2.16.8 [id number] 1938 Unknown [id number] 2.16.8 [id number] 1938 Unknown [id number] 2.16.8 [id number] 1938 Unknown [id number] 2.16.8 [id number] 1938 Unknown [id number] 2.16.8 [id number] Unknown [id number] 2.16.8 [id number] Unknown [id number] 2.16.8 [id number] Unknown [id number] 2.16.8 [id number] Unknown [id number] 2.16.8 [id number] Unknown [id number] 2.16.8 [id number] Unknown [id number] 2.16.8 [id number] Social History Date Type Detail Facility Start: 06-02-2022 End: 12-21-2023 Tobacco smoking status MIIS Unknown if ever smoked [facility] Start: 01-09-2021 Non-smoker [facility] Start: 1940 Sex Assigned At Male [facility] Medical Equipment Procedure Code Equipment Code Equipment Origin al Text Equipment Identifier Dates Repair, hernia, inguinal, with mesh insertion MESH,PERFIX FLAT PRESHAPED FDA Start: 01-15-2021 Repair, hernia, inguinal, with mesh insertion MESH,PERFIX FLAT PRESHAPED FDA Start: 01-15-2021 Repair, hernia, inguinal, with mesh insertion MESH,PERFIX FLAT PRESHAPED FDA Start: 01-15-2021 Repair, hernia, inguinal, with mesh insertion MESH,PERFIX FLAT PRESHAPED FDA Start: 01-15-2021 Repair, hernia, inguinal, with mesh insertion MESH,PERFIX FLAT PRESHAPED FDA Start: 01-15-2021 PORT,6FR POWER PORT FDA Start: 03-24-2018 PORT,6FR POWER PORT FDA Start: 03-24-2018 PORT,6FR POWER PORT FDA Start: 03-24-2018 PORT,6FR POWER PORT FDA Start: 03-24-2018 PORT,6FR POWER PORT FDA Start: 03-24-2018 Mental Status Date Assessment Result Facility 06-02-2018 Cognitive function Mood Descript ion Appropriate;Calm;Relaxed [facility] Work Phone: Evaluation note Note Date & Type Note Facility Evaluation note Diagnosis Onset Date Hypothyroidism acute Oropharynx cancer chronic Dehydration acute Educational circumstance acu te Hypothyroidism acute Oropharynx cancer chronic [facility] Work Phone: Evaluation note Note Date & Type Note Facility Evaluation note Diagnosis Onset Date Hypothyroidism acute Oropharynx cancer chronic Dehydration acute Educational circumstance acu te Hypothyroidism acute Oropharynx cancer chronic Oropharynx cancer chronic [facility] Work Phone: Evaluation note Note Date & Type Note Facility Evaluation note No assessment information availa ble [facility] Work Phone: Evaluation note Note Date & Type Note Facility Evaluation note Diagnosis Onset Date Cough with hemoptysis acute Mass of left lung acute [facility] Work Phone: Chief Complaint and Reason for Visit Chief Complaint OVER DUE F/U LABS OMD/HEM F/U HEAD AND NECK CANCER Reason for Visit Hypothyroidism Oropharynx cancer Dehydration Educational circumstance Hypothyroidism Oropharynx cancer Chief Complaint OVER DUE F/U LABS OMD/HEM F/U HEAD AND NECK CANCER AAA Reason for Visit Hypothyroidism Oropharynx cancer Dehydration Educational circumstance Hypothyroidism Oropharynx cancer Chief Complaint OVER DUE F/U LABS OMD/HEM F/U HEAD AND NECK CANCER AAA 1 yr f/u H/N Reason for Visit Hypothyroidism Oropharynx cancer Dehydration Educational circumstance Hypothyroidism Oropharynx cancer Oropharynx cancer Chief Complaint Hemoptysis/Opacity i n lungs LUNG Reason for Visit Cough with hemoptysi s Mass of left lung Family History No Family History Records Found Relationship Condition Age at Onset Recorded Date/T laura mother Malignant neoplasm of skin Unknown Hypertension Unknown brother Alzheimer's disease Unknown father Peptic ulcer with hemorrhage Unknown Advance Directives No Advanced Directives Records Found Advance Directive Response Recorded Date/ Time Advance Directives No June 02, 2022 12:07pm Living Will Yes June 02 12:07pm Power of Card Processing Clerk Yes June 02 12:07pm Advance Directives on File No Augus 2017 11:00am Advance Directive Response Recorded Date/ Time Advance Directives No June 02, 2022 11:07am Living Will Yes June 02 11:07am Power of Card Processing Clerk Yes June 02 11:07am Advance Directives on File No Augus t 2017 10:00am Advance Directive Response Recorded Date/ Time Advance Directives No June 02, 2022 12:07pm Living Will Yes June 02 12:07pm Power of Card Processing Clerk Yes June 02 12:07pm Summary Purpose Additional Source Comments Goals (unrecognized section and content) Goals may be documented in a n alternate sectionGoals may be documented in an alternate sectionGoals may be documented in an alternate sectionGoals may be documented in an alternate sectionGoals may be documented in an alternate section Care Teams (unrecognized sec tion and content) Team Status: Active Member Role Status Dates Dr. Que Parr MD Family Provider Active Dr. Que Parr MD Primary Care Provider Active Team Status: Inactive Member Role Status Dates Dr. Que Parr MD Primary Care Pr yarelis, Attending Provider, Referring Provider Active Team Status: Active Member Role Status Dates Dr. Que Parr MD Family Provider Active Dr. Kacey Edward MD Primary Care Provider Active Team Status: Inactive Member Role Status Dates Dr. Que Parr MD Primary Care Provider, Referr ing Provider Active Dr. Rex Serra MD Attending Provider Active Team Status: Inactive Member Role Status Dates Dr. Kacey Edward MD Primary Care Provider Active Dr. Rex Serra MD Attending Provider, Referring Pr ovider Active (unrecognized sect ion and content) No Status Records FoundNo Status Records FoundNo Status Records Found INFORMATION SOURCE (unrecogn ized section and content) DATE CREATED AUTHOR 02/16/2024 [facility] DATE CREATED AUTHOR AUTHOR'S ORGANIZ ATION 05/05/2024 [facility] DATE CREATED AUTHOR AUTHOR'S ORGANIZ ATION 12/29/2024 [facility] FOR RECORDS PERTAINING TO PATIENTS WHO ARE OR HAVE BEEN ENROLLED IN A CHEMICAL DEPENDENCY/SUBSTANCEABUSE PROGRAM, SOME INFORMATION MAY BE OMITTED. This clinical summary was aggregated from multiple sources. Caution should be exercised in using it in the provision of clinical care. This summary normalizes information from multiple sources, and as a consequence, information in this document may materially change the coding, format and clinical context of patient data. In addition, data may be omitted in some cases. CLINICAL DECISIONS SHOULD BE BASED ON THE PRIMARY CLINICAL RECORDS. [employer] provides no warranty or guarantee of the accuracy or completeness of information in this document.
[2025-03-30 15:23] VITALS: BP 148/70; PULSE 80; RESP 15; TEMP 36.3; O2SAT 95
[2025-04-02 14:08] LABS: Lyme Ab Screen Interpretation Lyme Abs Unconfirmed (.); Lyme IGG CIA Negative (Negative); Lyme IGM CIA Negative (Negative); Lyme Scn Total Ab w/Rflx Positive (Negative)
== END 2025-03-30 15:24 | disposition home or self-care (01) ==
PROVIDERS: Emergency Provider Emergency Medicine; PCP Student in an Organized Health Care Education/Training Program; Visit Provider Emergency Medicine
DX: S46.812A Strain of other muscles, fascia and tendons at shoulder and upper arm level, left arm, initial encounter (principal); S81.852A Open bite, left lower leg, initial encounter; E03.9 Hypothyroidism, unspecified; R03.0 Elevated blood-pressure reading, without diagnosis of hypertension; Z87.891 Personal history of nicotine dependence; X58.XXXA Exposure to other specified factors, initial encounter
CPT/HCPCS: 73060; 73080; 86618; 99283